=== PATIENT | female | born 1975 | race Caucasian/White ===

== ENCOUNTER 2017-09-01 13:34 | Emergency (ER) | payer OTHER ==
[2017-09-01 13:38] VITALS: PULSE 84; TEMP 97.8
--- NOTE | 2017-09-01 15:18 | ED ---
General Adult HPI - General Chief complaint: ENT Stated complaint: Sore Throat Time Seen by Provider: 09/01/17 14:37 Source: patient, RN notes reviewed Mode of arrival: ambulatory Limitations: no limitations - History of Present Illness Initial comments: 41-year-old female presents to the emergency department for a chief complaint of throat pain x 1 day. Patient states she has had congestion for 2-3 weeks and now has a sore throat which started today. Patient denies any fevers or chills at home. Patient states it feels like there is a lump in her throat that is causing pain. Patient denies any difficulty breathing or swallowing. Patient denies any cough or ear pain or pressure. Patient denies any other complaints at this time including shortness of breath, chest pain, abdominal pain, nausea or vomiting. - Related Data Previous Rx's Medication Instructions Recorded Azithromycin [Zithromax Z-pack] 250 mg PO DIRECTED #6 tab 09/01/17 Allergies Allergy/AdvReac Type Severity Reaction Status Date / Time Penicillins Allergy Unknown Verified 09/01/17 13:38 Review of Systems ROS Statement: Those systems with pertinent positive or pertinent negative responses have been documented in the HPI. ROS Other: All systems not noted in ROS Statement are negative. Past Medical History Past Medical History: Thyroid Disorder History of Any Multi-Drug Resistant Organisms: None Reported Past Surgical History: Section Past Psychological History: No Psychological Hx Reported Smoking Status: Never smoker Past Alcohol Use History: None Reported Past Drug Use History: None Reported General Exam Limitations: no limitations General appearance: alert, in no apparent distress Head exam: Present: atraumatic, normocephalic, normal inspection Eye exam: Present: normal appearance, PERRL, EOMI. Absent: scleral icterus, conjunctival injection, periorbital swelling ENT exam: Present: normal exam, normal oropharynx (No erythema noted of the throat. No tonsillar exudates. Uvula is bifurcated.), mucous membranes moist, TM's normal bilaterally Neck exam: Present: normal inspection, full ROM. Absent: tenderness, meningismus, lymphadenopathy (No lymphadenopathy palpated.) Respiratory exam: Present: normal lung sounds bilaterally. Absent: respiratory distress, wheezes, rales, rhonchi, stridor Cardiovascular Exam: Present: regular rate, normal rhythm, normal heart sounds. Absent: systolic murmur, diastolic murmur, rubs, gallop, clicks Course Vital Signs 09/01/17 13:36 Temperature 97.8 F Pulse Rate 84 Respiratory 20 Rate Blood Pressure 179/100 O2 Sat by Pulse 100 Oximetry Medical Decision Making - Medical Decision Making 41-year-old female presents to the emergency department for a chief complaint of sore throat times one day. Patient states she has had congestion for 2-3 weeks and now her throat is sore. Patient states she feels like she has a lump in her throat but denies any difficulty swallowing or breathing. Patient denies any fevers or chills at home. Patient denies any teeth pain. On exam tympanic membranes look within normal limits and oropharynx was nonerythematous with no tonsillar exudates. Vitals are within normal limits within the emergency department and patient is afebrile. Patient will be given a prescription of azithromycin to treat the congestion as she is ALLERGIC to penicillins. Discussed with patient returning to the emergency department if she starts to have any difficulty swallowing or breathing as we can do a CAT scan if needed. At this time patient agrees that a CAT scan is not needed and she would like to monitor with antibiotics. She agrees to come back if she starts to have any worsening symptoms in her throat. She will follow up with primary care in 1-2 days. She will return to the emergency Department if she has any worsening symptoms or difficulty swallowing. Patient is to follow up with primary care for blood pressure management as well. - Lab Data Lab Results 09/01/17 Range/Units 13:59 Group A Strep Rapid Negative (Negative) Disposition Clinical Impression: Sinusitis, Pharyngitis Disposition: HOME SELF-CARE Condition: Good Instructions: Pharyngitis (ED), Sinusitis (ED) Additional Instructions: Please return to the emergency department if you had worsening symptoms, high fevers, or difficulty breathing or swallowing. Otherwise follow-up with primary care in 1-2 days. Take azithromycin as directed and [id number] cold medicines or motrin/tylenol for symptom relief. Prescriptions: Azithromycin [Zithromax Z-pack] 250 mg PO DIRECTED #6 tab Is patient prescribed a controlled substance at d/c from ED?: No Referrals: None,Stated [Primary Care Provider] - 1-2 days Time of Disposition: 15:09
[2017-09-01 15:32] VITALS: BP 185/90; RESP 18
== END 2017-09-01 15:31 | disposition home or self-care (01) ==
LOC: EC 13:34
DX: J32.9 Chronic sinusitis, unspecified (principal); J02.9 Acute pharyngitis, unspecified; Z88.0 Allergy status to penicillin
CPT/HCPCS: 87081; 87430; 99283

== ENCOUNTER 2017-10-30 21:02 | Emergency (ER) | payer OTHER ==
[2017-10-30] MEDS ORDERED: IPRATROPIUM-ALBUTEROL 3 ML NEB INHALATION STA (21:33)
--- NOTE | 2017-10-30 21:36 | ED ---
General Adult HPI - General Chief complaint: ENT Stated complaint: Itchy Eyes, Shortness of Breath Time Seen by Provider: 10/30/17 21:10 Source: patient, RN notes reviewed Mode of arrival: ambulatory Limitations: no limitations - History of Present Illness Initial comments: This is a 42-year-old female presents emergency Department complaining of itchy eyes. Patient states earlier in the week she had little bit of a fever and now she has just a GIs and a dry cough. Patient states she doesn't really have any shortness of breath but every time she takes a deep breath she seems to cough. Patient denies any history of difficulty breathing or asthma. Patient denies any smoking history or living with a smoker. Patient denies any sore throat currently but she states earlier in the week she had a sore throat. Patient denies any ear pain or any facial pain. Patient denies any nasal drainage. Patient denies any rashes or lesions. She denies any chest pain or abdominal pain. - Related Data Previous Rx's Medication Instructions Recorded Azithromycin [Zithromax Z-pack] 250 mg PO DIRECTED #6 tab 09/01/17 Albuterol Inhaler [Ventolin Hfa 1 - 2 puff INHALATION Q6HR PRN #2 10/30/17 Inhaler] puff Allergies Allergy/AdvReac Type Severity Reaction Status Date / Time Penicillins Allergy Unknown Verified 10/30/17 21:16 Review of Systems ROS Statement: Those systems with pertinent positive or pertinent negative responses have been documented in the HPI. ROS Other: All systems not noted in ROS Statement are negative. Past Medical History Past Medical History: Thyroid Disorder History of Any Multi-Drug Resistant Organisms: None Reported Past Surgical History: Section Past Psychological History: No Psychological Hx Reported Smoking Status: Never smoker Past Alcohol Use History: None Reported Past Drug Use History: None Reported General Exam - General Exam Comments Initial Comments: GENERAL: Patient is well-developed and well-nourished. Patient is nontoxic and well- hydrated and is in mild distress. ENT: Neck is soft and supple. No significant lymphadenopathy is noted. Oropharynx is clear. Moist mucous membranes. Neck has full range of motion without eliciting any pain. There is no thyroid enlargement and no masses were felt. EYES: The sclera were anicteric and conjunctiva is injected on the left and it looks like pink. Extraocular movements were intact and pupils were equal round and reactive to light. Eyelids were unremarkable. PULMONARY: Unlabored respirations. Good breath sounds bilaterally. No audible rales rhonchi or wheezing was noted. CARDIOVASCULAR: There is a regular rate and rhythm without any murmurs gallops or rubs. ABDOMEN: Soft and nontender with normal bowel sounds. No palpable organomegaly was noted. There is no palpable pulsatile mass. SKIN: Skin is clear with no lesions or rashes and otherwise unremarkable. NEUROLOGIC: Patient is alert and oriented x3. Cranial nerves II through XII are grossly intact. Motor and sensory are also intact. Normal speech, volume and content. Symmetrical smile. MUSCULOSKELETAL: Normal extremities with adequate strength and full range of motion. No lower extremity swelling or edema. No calf tenderness. LYMPHATICS: No significant lymphadenopathy is noted PSYCHIATRIC: Normal psychiatric evaluation. Limitations: no limitations Course Vital Signs 10/30/17 10/30/17 10/30/17 21:12 21:48 21:54 Temperature 98.8 F Pulse Rate 70 76 78 Respiratory 20 Rate Blood Pressure 157/86 O2 Sat by Pulse 99 Oximetry 10/30/17 22:26 Temperature 98.6 F Pulse Rate 73 Respiratory 18 Rate Blood Pressure 162/90 O2 Sat by Pulse 96 Oximetry Medical Decision Making - Medical Decision Making Chest x-ray shows no acute abnormality. I will begin to reevaluate the patient patient stated the breathing treatment seemed to help her and she is no longer coughing is much she was. I listened to her lungs was no wheezing at all. Disposition Clinical Impression: Upper respiratory infection, Conjunctivitis Disposition: HOME SELF-CARE Instructions: Upper Respiratory Infection (ED), Conjunctivitis (ED) Additional Instructions: Patient should use the tobramycin eyedrops 4 times a day. Prescriptions: Albuterol Inhaler [Ventolin Hfa Inhaler] 1 - 2 puff INHALATION Q6HR PRN #2 puff PRN Reason: Difficulty breathing Is patient prescribed a controlled substance at d/c from ED?: No Referrals: Taran Lakhani DO [Primary Care Provider] - 1-2 days Time of Disposition: 22:07
--- NOTE | 2017-10-30 21:51 | XR ---
EXAMINATION TYPE: XR chest 2V DATE OF EXAM: 10/30/2017 COMPARISON: 11/18/2011 HISTORY: Difficulty breathing TECHNIQUE: Frontal and lateral views of the chest are obtained. FINDINGS: Heart and mediastinum are normal. Lungs are clear. Diaphragm is normal. Bony thorax appear s normal. IMPRESSION: Normal chest. No change.
[2017-10-30] MEDS ORDERED: TOBRAMYCIN 0.3% OPHTH DROPS 5 ML BTL BOTH EYES STA (22:08)
[2017-10-30 22:26] VITALS: PULSE 73; RESP 18; TEMP 98.6
[2017-10-30 22:30] VITALS: BP 162/90
== END 2017-10-30 22:37 | disposition home or self-care (01) ==
LOC: EC 21:02
DX: J06.9 Acute upper respiratory infection, unspecified (principal); H10.9 Unspecified conjunctivitis; Z88.0 Allergy status to penicillin
CPT/HCPCS: 71046; 94640; 99285

== ENCOUNTER → 2019-05-11 | Outpatient (CLI) | payer OTHER ==
--- NOTE | 2019-05-11 08:46 | MR ---
EXAMINATION TYPE: MR knee LT wo con DATE OF EXAM: 05/11/2019 COMPARISON: NONE HISTORY: Pain left knee, patellofemoral disorders, chondromalacia patella, history of large body habi tus, and meniscal derangement. TECHNIQUE: Multiplanar, multisequence images of the knee is performed without IV contrast. FINDINGS: MEDIAL MENISCUS: Medial extrusion medial meniscus noted on coronal images. Anterior horn is intact wi thout tear. Posterior horn shows triangular shaped increased signal does not extend to articular surf denis. LATERAL MENISCUS: Anterior and posterior horns are intact without tear. CRUCIATE LIGAMENTS: The anterior and posterior cruciate ligaments are intact and unremarkable. COLLATERAL LIGAMENTS: The medial collateral ligament and lateral collateral ligament complex are inta ct. There is slight medial bowing from medial extruded meniscus with mild to moderate surrounding flu id image 20 for reference. EXTENSOR MECHANISM: Visualized quadriceps and patellar tendons are intact. Hoffa's fat pad maintained . EFFUSION: There is moderate to borderline large size suprapatellar joint effusion. POPLITEAL CYST: No popliteal/morales cyst. TRICOMPARTMENT SPACES: Mild to moderate tricompartment joint space loss without significant spurring. CARTILAGE: Chondromalacia patella is present with thinning of articular cartilage along the posterior inferior aspect patellar pole. No full-thickness cartilaginous loss is seen. Some thinning of articu lar cartilage and medial tibial femoral compartment is also present. There is lateral tilting or subl uxation of patella seen best on axial images. No definitive underlying trochlear dysplasia. BONE MARROW SIGNAL: No focal abnormal marrow signal is appreciated. OTHER: No additional significant abnormality is appreciated. IMPRESSION: 1. Mild to moderate tricompartment degenerative changes are somewhat pronounced for patient's chronol ogic age as detailed above. Lateral subluxation or tilting of patella noted. 2. Moderate to large-sized suprapatellar joint effusion. 3. At least intrasubstance tear posterior horn with medial extrusion medial meniscus. 4. [id number] MCL sprain injury partially related to medial extrusion of medial meniscus.
== END | disposition home or self-care (01) ==
LOC: RADMRIMAIN 07:42
PROVIDERS: ATTEND Physician Assistant
DX: S83.242A Other tear of medial meniscus, current injury, left knee, initial encounter (principal); M17.12 Unilateral primary osteoarthritis, left knee; E03.9 Hypothyroidism, unspecified

== ENCOUNTER 2019-09-12 16:19 | Emergency (ER) | payer OTHER ==
[2019-09-12 16:35] VITALS: TEMP 98.2
[2019-09-12 17:30] LABS: Appearance,Urine Cloudy (Clear); Bacteria,Urine Rare /hpf; Bilirubin,Urine Negative (Negative); Blood,Urine Large (Negative); Budding Yeast,Urine Occasional /hpf; Calcium Oxalate Crystals,Urine Moderate /hpf; Color,Urine Yellow; Glucose,Urine (UA) Negative (Negative); Hyaline Casts,Urine 10 /lpf (0-2); Ketones,Urine Negative (Negative); Leukocyte Esterase,Urine Trace (Negative); Mucus,Urine Few /hpf; Nitrite,Urine Negative (Negative); PH, Urine 5.5 (5.0-8.0); Protein,Urine 2+ (Negative); RBC,Urine >182 /hpf (0-5); Specific Gravity,Urine 1.025 (1.001-1.035); Squamous Epithelial Cell,Urine 12 /hpf (0-4); Urobilinogen,Urine <2.0 mg/dL (<2.0); WBC,Urine 9 /hpf (0-5)
--- NOTE | 2019-09-12 17:34 | ED ---
Female Urogenital HPI - General Chief complaint: Urogenital Stated complaint: poss kidney stones Time Seen by Provider: 09/12/19 16:43 Source: patient Mode of arrival: ambulatory Limitations: no limitations - History of Present Illness Initial comments: 43-year-old female presenting for right flank pain and hematuria. Patient states she has frequent kidney stones, symptoms identical to previous stones began at 1PM. Patient states that she had blood in urine and nausea. Patient lamar abdominal pain. Fevers, dysuria urgency frequency. Upon history taking patient states she had urinated in the ER to provide urine sample for the nurse and states she no longer symptoms. She states she would not have presented if the symptoms had gone away this quickly. She states she does not want much of a work up and would like to go home. Patient appears well no distress. Remaining ROS (-), Patient denies any recent shortness of breath, chest pain, numbness or tingling, dysuria or hematuria, constipation or diarrhea, headaches or visual changes, or any other complaints. - Related Data Previous Rx's Medication Instructions Recorded Azithromycin [Zithromax Z-pack] 250 mg PO DIRECTED #6 tab 09/01/17 Albuterol Inhaler (Mhu) [Ventolin 1 - 2 puff INHALATION Q6HR PRN #2 10/30/17 Hfa Inhaler (Mhu)] puff Allergies Allergy/AdvReac Type Severity Reaction Status Date / Time Penicillins Allergy Unknown Verified 09/12/19 16:35 Review of Systems ROS Statement: Those systems with pertinent positive or pertinent negative responses have been documented in the HPI. ROS Other: All systems not noted in ROS Statement are negative. Past Medical History Past Medical History: Thyroid Disorder History of Any Multi-Drug Resistant Organisms: None Reported Past Surgical History: Section Past Psychological History: No Psychological Hx Reported Smoking Status: Never smoker Past Alcohol Use History: None Reported Past Drug Use History: None Reported General Exam - General Exam Comments Initial Comments: General: The patient is awake and alert, in no distress, and does not appear acutely ill. Eye: pupils are equal, round and reactive to light, extra-ocular movements are intact. No nystagmus. There is normal conjunctiva bilaterally. No signs of icterus. Cardiovascular: There is a regular rate and rhythm. No murmur, rub or gallop is appreciated. Respiratory: Lungs are clear to auscultation, respirations are non-labored, breath sounds are equal. No wheezes, stridor, rales, or rhonchi. Gastrointestinal: Soft, non-distended, non-tender abdomen without masses or organomegaly noted. There is no rebound or guarding present. Musculoskeletal: Normal ROM, no tenderness. Strength 5/5. Sensation intact. radial pulses equal bilaterally 2+. Neurological: A&O x 3. CN II-XII intact grossly, There are no obvious motor or sensory deficits. Coordination appears grossly intact. Speech is normal. Skin: Skin is warm and dry and no rashes or lesions are noted. Psychiatric: Cooperative, appropriate mood & affect, normal judgment. Limitations: no limitations Course Vital Signs 09/12/19 09/12/19 16:33 17:41 Temperature 98.2 F Pulse Rate 64 74 Respiratory 18 16 Rate Blood Pressure 155/94 155/102 O2 Sat by Pulse 97 96 Oximetry Medical Decision Making - Medical Decision Making Currently asymptomatic 43-year-old female. Presenting for possible stone. Patient agreed urinalysis which reveals no significant WBC/Bacteria. No Fevers No Chills No Current Pain. Patient will be discharged with PCP f/u. Patient is to return for pain, fevers, chills. Patient discharged appearing well. Pt refused labs, or CT aware of risk of /disability. - Lab Data Lab Results 09/12/19 Range/Units 17:17 Urine Color Yellow Urine Appearance Cloudy H (Clear) Urine pH 5.5 (5.0-8.0) Ur Specific [place] 1.025 (1.001-1.035) Urine Protein 2+ H (Negative) Urine Glucose (UA) Negative (Negative) Urine Ketones Negative (Negative) Urine Blood Large H (Negative) Urine Nitrite Negative (Negative) Urine Bilirubin Negative (Negative) Urine Urobilinogen <2.0 (<2.0) mg/dL Ur Leukocyte Esterase Trace H (Negative) Urine RBC >182 H (0-5) /hpf Urine WBC 9 H (0-5) /hpf Ur Squamous Epith Cells 12 H (0-4) /hpf Calcium Oxalate Crystal Moderate H (None) /hpf Urine Bacteria Rare H (None) /hpf Hyaline Casts 10 H (0-2) /lpf Urine Mucus Few H (None) /hpf Urine Yeast (Budding) Occasional H (None) /hpf Disposition Clinical Impression: Hematuria, History of kidney stones Disposition: HOME SELF-CARE Condition: Good Instructions (If sedation given, give patient instructions): Kidney Stones (ED) Additional Instructions: Please use medication as discussed. Please follow-up with family doctor in the next 2 days. Please return to emergency room if the symptoms increase or worsen or for any other concerns-return of pain, fevers. Is patient prescribed a controlled substance at d/c from ED?: No Referrals: Yael Cardenas MD [Primary Care Provider] - 1-2 days Time of Disposition: 17:33
[2019-09-12 17:42] VITALS: BP 155/102; PULSE 74; RESP 16
== END 2019-09-12 17:56 | disposition home or self-care (01) ==
LOC: EC 16:19
DX: R31.9 Hematuria, unspecified (principal); Z87.442 Personal history of urinary calculi; Z88.0 Allergy status to penicillin
CPT/HCPCS: 81001; 99284

== ENCOUNTER → 2020-06-23 | Outpatient (CLI) | payer OTHER ==
--- NOTE | 2020-06-23 15:01 | XR ---
EXAMINATION TYPE: XR knee complete LT DATE OF EXAM: 06/23/2020 CLINICAL HISTORY: pain TECHNIQUE: Three views of the left knee are obtained. COMPARISON: None. FINDINGS: There is no acute fracture/dislocation. The tri-compartment joint spaces appear mildly na rrowed The overlying soft tissue appears unremarkable. IMPRESSION: There is no acute fracture or dislocation ICD 10 NO FRACTURE, INITIAL EVALUATION
== END | disposition home or self-care (01) ==
LOC: RADXRMAIN 14:31
PROVIDERS: ATTEND Internal Medicine
DX: S83.92XA Sprain of unspecified site of left knee, initial encounter (principal)

== ENCOUNTER → 2020-07-12 | Outpatient (CLI) | payer OTHER ==
--- NOTE | 2020-07-12 12:56 | MR ---
EXAMINATION TYPE: MR knee LT wo con DATE OF EXAM: 07/12/2020 COMPARISON: MRI left knee May 11, 2019 HISTORY: Lt knee pain, patellofemoral disorder, chondromalacia patella, subluxation left patella, MCL sprain injury, derangements of patella. TECHNIQUE: Multiplanar, multisequence imaging of the left knee is performed without IV contrast. FINDINGS: Exam suboptimal secondary to patient's large body habitus, there is artifact in heterogenei ty of fat saturation. MEDIAL MENISCUS: Medial extrusion medial meniscus redemonstrated. Oblique and triangular shape increa sed signal posterior horn extends to inferior articular surface. The anterior horn intact. Findings s imilar to prior. LATERAL MENISCUS: Anterior and posterior horns are intact without tear. CRUCIATE LIGAMENTS: The posterior cruciate ligament is intact and unremarkable. Anterior cruciate lig ament shows increased signal and thickening more prominent versus prior. COLLATERAL LIGAMENTS: The medial collateral ligament and lateral collateral ligament complex are inta ct . EXTENSOR MECHANISM: Visualized quadriceps and patellar tendons are intact. EFFUSION: Small to tiny suprapatellar joint effusion less prominent first prior. POPLITEAL CYST: No popliteal/morales cyst. TRICOMPARTMENT SPACES: Mild to moderate tricompartment joint space loss greatest over patellofemoral compartment. Mild tricompartment spurring. Lateral positioning or tilting of the patella remains pres ent. No significant change from prior. Underlying trochlear dysplasia. CARTILAGE: Persistent chondromalacia patella with thinning of articular cartilage inferior portion of the posterior patellar pole. Thinning of articular cartilage medial tibiofemoral compartment. BONE MARROW SIGNAL: No focal abnormal marrow signal is appreciated. OTHER: No additional significant abnormality is appreciated. IMPRESSION: 1. Mild to moderate tricompartment degenerative changes redemonstrated as detailed above greatest med ial tibiofemoral and patellofemoral compartments. Findings somewhat pronounced for patient's age. Inc reased degenerative change medial tibiofemoral compartment noted from prior MRI. Stable lateral posit ioning or subluxation of the patella. 2. Redemonstration of full thickness tear posterior horn medial meniscus. Medial extrusion medial men iscus causes mild MCL sprain injury. No significant change from prior. 3. Small suprapatellar joint effusion diminished in size from prior.
== END | disposition home or self-care (01) ==
LOC: RADMRIMAIN 11:37
PROVIDERS: ATTEND Orthopaedic Surgery Sports Medicine
DX: M17.12 Unilateral primary osteoarthritis, left knee (principal); M22.2X2 Patellofemoral disorders, left knee; M22.42 Chondromalacia patellae, left knee; M22.3X2 Other derangements of patella, left knee; S83.002D Unspecified subluxation of left patella, subsequent encounter; E03.9 Hypothyroidism, unspecified; S83.412D Sprain of medial collateral ligament of left knee, subsequent encounter

== ENCOUNTER 2021-04-11 12:38 | Inpatient (IN) | payer OTHER ==
[2021-04-11] MEDS ORDERED: ACETAMINOPHEN TAB 500 MG TAB PO PRN (13:10)
[2021-04-11] MEDS ORDERED: ACETAMINOPHEN TAB 500 MG TAB PO STA (13:10)
[2021-04-11] MEDS ORDERED: DEXAMETHASONE SOD PHOSPHATE 10 MG/ML 1 ML VIAL IVP STA (13:10)
[2021-04-11] MEDS ORDERED: ALBUTEROL HFA INHALER INHALATION PRN (13:10)
[2021-04-11 13:25] LABS: Basophils % (A) 0 %; Eosinophils % (A) 1 %; HCT 38.2 % (34.0-46.0); HGB 12.3 gm/dL (11.4-16.0); Hypochromasia Slight; Lymphocytes # (A) 0.8 k/uL (1.0-4.8); Lymphocytes % (A) 15 %; MCH 29.4 pg (25.0-35.0); MCHC 32.3 g/dL (31.0-37.0); Mean Platelet Volume 8.5; Monocytes # (A) 0.2 k/uL (0-1.0); Monocytes % (A) 4 %; Neutrophils # (A) 4.4 k/uL (1.3-7.7); Neutrophils % (A) 80 %; Platelet Count 155 k/uL (150-450); RDW 14.1 % (11.5-15.5); WBC 5.6 k/uL (3.8-10.6)
[2021-04-11 13:35] LABS: Partial Thromboplastin Time 23.3 sec (22.0-30.0); Prothrombin Time 10.3 sec (9.0-12.0)
[2021-04-11 13:36] LABS: Albumin 3.7 g/dL (3.5-5.0); Calcium 8.5 mg/dL (8.4-10.2); Magnesium 1.6 mg/dL (1.6-2.3); Potassium 4.3 mmol/L (3.5-5.1); Total Bilirubin 0.8 mg/dL (0.2-1.3); Total Protein 7.5 g/dL (6.3-8.2)
--- NOTE | 2021-04-11 13:38 | ED ---
General Adult HPI - General Chief complaint: Shortness of Breath Stated complaint: Covid+/SOB Time Seen by Provider: 04/11/21 12:43 Source: patient Mode of arrival: EMS Limitations: no limitations - History of Present Illness Initial comments: 45-year-old female with a past medical history of thyroid disorder, obesity presents to the emergency room for a chief complaint of shortness of breath. Patient developed symptoms of Brooks virus about a week ago and tested +5 days ago. Patient states she is getting more short of breath. She called the [facility] today and they found her to be saturating at 60% on room air. Therefore she was brought to the emergency room. Patient has had fevers on and off. Patient was vaccinated for COVID-19 in August.Patient has no other complaints at this time including chest pain, abdominal pain, nausea or vomiting, headache, or visual changes. - Related Data Previous Rx's Medication Instructions Recorded Azithromycin [Zithromax Z-pack (6 250 mg PO DIRECTED #6 tab 09/01/17 tabs)] Albuterol Inhaler (Mhu) [Ventolin 1 - 2 puff INHALATION Q6HR PRN #2 10/30/17 Hfa Inhaler (Mhu)] puff Allergies Allergy/AdvReac Type Severity Reaction Status Date / Time Penicillins Allergy Unknown Verified 04/11/21 13:05 Review of Systems ROS Statement: Those systems with pertinent positive or pertinent negative responses have been documented in the HPI. ROS Other: All systems not noted in ROS Statement are negative. Past Medical History Past Medical History: Thyroid Disorder Additional Past Medical History / Comment(s): obesity History of Any Multi-Drug Resistant Organisms: None Reported Past Surgical History: Section, Cholecystectomy Past Psychological History: No Psychological Hx Reported Smoking Status: Never smoker Past Alcohol Use History: None Reported Past Drug Use History: None Reported General Exam Limitations: no limitations General appearance: alert Head exam: Present: atraumatic Eye exam: Present: normal appearance, PERRL, EOMI. Absent: scleral icterus, conjunctival injection ENT exam: Present: normal exam, mucous membranes moist Neck exam: Present: normal inspection, full ROM. Absent: tenderness, meningismus Respiratory exam: Present: normal lung sounds bilaterally. Absent: respiratory distress, wheezes Cardiovascular Exam: Present: regular rate, normal rhythm, normal heart sounds GI/Abdominal exam: Present: soft, normal bowel sounds. Absent: distended, tenderness Course Vital Signs 04/11/21 04/11/21 04/11/21 12:59 13:00 13:05 Temperature 101.1 F H Pulse Rate 106 H Respiratory 22 Rate Blood Pressure 153/92 O2 Sat by Pulse 94 L 80 L 94 L Oximetry EKG Findings - EKG Comments: EKG Findings:: Sinus tachycardia, ventricular rate 106, GA interval 166, QTC 435 Medical Decision Making - Medical Decision Making Patient 68% upon EMS arrival. We did reevaluate her on room air and she was 80%. Therefore started on 4 L. EKG, chest x-ray, COVID-19 labs and markers obtained and vitamins. Patient will be admitted for oxygenation as well as pulmonology consultation. - Lab Data Result diagrams: 04/11/21 13:17 Lab Results 04/11/21 Range/Units 13:17 WBC 5.6 (3.8-10.6) k/uL RBC 4.20 (3.80-5.40) m/uL Hgb 12.3 (11.4-16.0) gm/dL Hct 38.2 (34.0-46.0) % MCV 91.0 (80.0-100.0) fL MCH 29.4 (25.0-35.0) pg MCHC 32.3 (31.0-37.0) g/dL RDW 14.1 (11.5-15.5) % Plt Count 155 (150-450) k/uL MPV 8.5 Neutrophils % 80 % Lymphocytes % 15 % Monocytes % 4 % Eosinophils % 1 % Basophils % 0 % Neutrophils # 4.4 (1.3-7.7) k/uL Lymphocytes # 0.8 L (1.0-4.8) k/uL Monocytes # 0.2 (0-1.0) k/uL Eosinophils # 0.0 (0-0.7) k/uL Basophils # 0.0 (0-0.2) k/uL Hypochromasia Slight Disposition Clinical Impression: COVID-19, Acute respiratory failure with hypoxia Disposition: ADMITTED IP TO THIS HOSP Is patient prescribed a controlled substance at d/c from ED?: No Referrals: Yael Cardenas MD [Primary Care Provider] - 1-2 days Time of Disposition: 13:38
--- NOTE | 2021-04-11 13:46 | XR ---
EXAMINATION TYPE: XR chest 1V portable DATE OF EXAM: 04/11/2021 COMPARISON: Chest x-ray October 30, 2017 HISTORY: Cough and congestion. TECHNIQUE: Single AP portable frontal upright view of the chest is obtained. FINDINGS: There are new bilateral multifocal and confluent opacities The cardiac silhouette size is mildly enlarged. The osseous structures are intact. IMPRESSION: New bilateral multifocal and confluent opacities consistent with covid-19 infection.
[2021-04-11] MEDS ORDERED: IBUPROFEN 400 MG TAB PO PRN (15:21)
[2021-04-11] MEDS ORDERED: NALOXONE 0.4 MG/ML 1 ML VIAL IV PRN (15:21)
[2021-04-11] MEDS: ASCORBIC ACID 500 MG TAB PO SCH (15:36)
[2021-04-11] MEDS: ZINC SULFATE 220 MG CAP PO SCH (15:41)
[2021-04-11] MEDS: CHOLECALCIFEROL 125 MCG (5000 IU) TABLET PO SCH (15:43)
--- NOTE | 2021-04-11 17:51 | HP ---
HISTORY AND PHYSICAL DATE OF SERVICE: 04/11/2021 CHIEF COMPLAINTS: Shortness of breath. HISTORY OF PRESENT ILLNESS: This 45-year-old woman with a past medical history of hypothyroidism, obesity, section and cholecystomy being followed by Dr. Cardenas in the outpatient is complaining of shortness and cough for the last five days. The patient came to [facility] and the patient is found to have bilateral acute COVID-19 pneumonia. The patient did take two doses of COVID-19 vaccine. There is no history of contact with COVID-19. PAST MEDICAL HISTORY: Hypothyroid,obesity, section, cholecystectomy. MEDICATIONS: Home medications are levothyroxine 150 mcg p.o. daily. ALLERGIES: PENICILLIN. FAMILY HISTORY: No history of heart disease or strokes in the family. SOCIAL HISTORY: No smoking, no alcohol. REVIEW OF SYSTEMS: ENT No history of diminished hearing or vision. CARDIOVASCULAR No angina or palpitations. RESPIRATORY No cough, no hemoptysis. GI No nausea. No dysuria or hematuria. NERVOUS No numbness or weakness. ALLERGY/IMMUNOLOGY No asthma or hayfever. MUSCULOSKELETAL As mentioned earlier. HEMATOLOGY/ONCOLOGY Negative. ENDOCRINE No history of diabetes. Has hypothyroidism. CONSTITUTIONAL As mentioned earlier. DERMATOLOGY Negative. RHEUMATOLOGY Negative, PSYCHIATRY As mentioned earlier. PHYSICAL EXAMINATION: The patient is alert and oriented x3. Pulse is 99, blood pressure 150/92, respiration 24, temperature normal, pulse ox 93% on 4 L. HEENT: Conjunctivae normal. Oral mucosa moist. NECK: No jugular venous distention. No lymph node enlargement. CARDIOVASCULAR: S1, S2, muffled. No S3, no S4, RESPIRATORY: Diminished breath sounds at the bases. A few scattered rhonchi. ABDOMEN: Soft, nontender. LEGS: No edema, no swelling. NERVOUS SYSTEM: Higher functions mentioned earlier. Moves all four limbs. No focal motor or sensory deficits. LYMPHATICS: No lymph node in neck or axilla. SKIN: No rash. JOINTS: No active deforming arthropathy. LABS: CBC within normal limits except lymphopenia. Sodium 132. Other labs are noted. ASSESSMENT: 1. Acute COVID-19 infection with acute COVID-19 bilateral interstitial pneumonia with acute hypoxic respiratory failure. 2. Lymphopenia. 3. Hyponatremia. 4. Elevated random glucose and possibly diabetes type 2. 5. Increased AST, ALT, pulse secondary to COVID-19. 6. Elevated LDH and ( ). 7. Elevated inflammatory markers of COVID-19. 8. Hypothyroid. 9. Obesity. 10.History of section. 11.History of cholecystectomy. 12.FULL CODE. RECOMMENDATION: In this 45-year-old woman who presented with multiple complex medical issues, we will monitor the patient closely, continue the current management and symptomatic treatment. We will initiate Lovenox and dexamethasone. The patient might be a candidate for Remdesivir. We will obtain Infectious Disease and Pulmonary consultations. Prognosis guarded because of multiple complex medical issues. Further recommendations to follow. MMODL / IJN: [id number] /
[2021-04-11 18:03] LABS: Glucose,Whole Blood 354 mg/dL (75-99)
[2021-04-11] MEDS: INSULIN ASPART (NovoLOG) 100 UNIT/ML VIAL SQ SCH ×2 (18:05→20:52)
--- NOTE | 2021-04-11 18:18 | P.CNPUL ---
History of Present Illness Consult date: 04/11/21 Requesting physician: Richa Valerio Reason for consult: dyspnea, abnormal CXR/CT Chief complaint: Shortness of breath, cough congestion History of present illness: This is a very pleasant 45-year-old female patient who follows with Dr. Cardeans as her primary care provider. His a history of obesity, hypothyroidism, hypertension. Approximately 8 days ago she developed symptoms of shortness of breath, cough, congestion, loss of taste and smell. She tested positive for COVID-19 on 04/07/2021. She was vaccinated with Materna 2 back in August 2020. She had worsening shortness of breath and called EMS today and they found her O2 saturation at 60% on room air. Rectal maintaining O2 saturation in the low 90s on 4 L/m per nasal cannula. His x-ray is revealing bilateral multifocal and confluent opacities consistent with COVID-19 pneumonia. He is seen today in consultation in the emergency room. She is currently sitting up on the stretcher. Awake and alert in no acute distress. She has a dry nonproductive cough. Dyspneic with conversation. I count 5.6. Hemoglobin 12.3. Lymphocytes 0.8. Sodium 135. Potassium 4.3. Bicarb 97. Creatinine 0.90. Glucose 241. AST 100. ALT 68. LDH 870. C-reactive protein 25.0. She has been initiated on Decadron, Lovenox, vitamin supplements. Normal saline at 75 ML's per hour. Review of Systems REVIEW OF SYSTEMS: CONSTITUTIONAL: Denies any recent significant weight loss or weight gain. EYES: Denies change in vision. EARS, NOSE, MOUTH, THROAT: Denies headaches, denies sore throat. CARDIOVASCULAR: Denies chest pain, palpitations or syncopal episodes. RESPIRATORY: Positive for shortness of breath, cough, congestion no hemoptysis. GASTROINTESTINAL: Positive for loss of taste. Denies change in appetite, denies abdominal pain GENITOURINARY: Denies hematuria, denies infections. MUSKULOSKELETAL: Denies pain, denies swelling. INTEGUMENTARY: Denies rash, denies eczema. NEUROLOGICAL: Denies recent memory loss, no recent seizure activity. PSYCHIATRIC: Denies anxiety, denies depression. HEMATOLOGIC/LYMPHATIC: Denies anemia, denies enlarged lymph nodes. Past Medical History Past Medical History: Thyroid Disorder Additional Past Medical History / Comment(s): obesity History of Any Multi-Drug Resistant Organisms: None Reported Past Surgical History: Section, Cholecystectomy Past Psychological History: No Psychological Hx Reported Smoking Status: Never smoker Past Alcohol Use History: None Reported Past Drug Use History: None Reported Medications and Allergies Home Medications Medication Instructions Recorded Confirmed Type Levothyroxine Sodium [Synthroid] 150 mcg PO DAILY 04/11/21 04/11/21 History Allergies Allergy/AdvReac Type Severity Reaction Status Date / Time Penicillins Allergy Rash/Hives Verified 04/11/21 14:00 Physical Exam Vitals: Vital Signs Temp Pulse Resp BP Pulse Ox 04/11/21 17:30 95 25 H 136/75 94 L 04/11/21 17:00 92 23 136/45 94 L 04/11/21 16:30 92 20 136/45 94 L 04/11/21 16:00 91 27 H 141/81 94 L 04/11/21 15:30 96 23 117/81 94 L 04/11/21 15:00 94 20 150/87 04/11/21 14:30 99 22 152/86 92 L 04/11/21 14:00 99 25 H 153/92 93 L 04/11/21 13:30 106 H 22 153/92 04/11/21 13:10 100 22 153/92 95 04/11/21 13:05 94 L 04/11/21 13:00 80 L 04/11/21 12:59 101.1 F H 106 H 22 153/92 94 L Intake and Output 04/11/21 04/11/21 04/11/21 06:59 14:59 22:59 Other: Weight 149.685 kg GENERAL EXAM: Alert, pleasant obese 45-year-old female, on 4 L nasal cannula, fairly comfortable in no apparent distress. HEAD: Normocephalic. EYES: Normal reaction of pupils, equal size. NOSE: Clear with pink turbinates. THROAT: No erythema or exudates. NECK: No masses, no JVD. CHEST: No chest wall deformity. LUNGS: Equal air entry with coarse crackles in the bilateral bases. CVS: S1 and S2 normal with no audible murmur, regular rhythm. ABDOMEN: No hepatosplenomegaly, normal bowel sounds, no guarding or rigidity. SPINE: No scoliosis or deformity SKIN: No rashes CENTRAL NERVOUS SYSTEM: No focal deficits, tone is normal in all 4 extremities. EXTREMITIES: There is no peripheral edema. No clubbing, no cyanosis. Peripheral pulses are intact. Results - Laboratory Findings CBC and BMP: 04/11/21 13:17 04/11/21 13:17 PT/INR, D-dimer PT 10.3 sec (9.0-12.0) 04/11/21 13:17 INR 1.0 (<1.2) 04/11/21 13:17 Abnormal lab findings: Abnormal Labs 04/11/21 04/11/21 04/11/21 13:17 13:17 17:59 Lymphocytes # 0.8 L Sodium 135 L Chloride 97 L Glucose 241 H POC Glucose (mg/dL) 354 H AST 100 H ALT 68 H Lactate Dehydrogenase 870 H C-Reactive Protein 25.0 H - Diagnostic Findings Chest x-ray: image reviewed Assessment and Plan Assessment: 1 Acute hypoxemic respiratory failure secondary to COVID-19 pneumonia. The patient was vaccinated 2 with [place] not in August 2020. Outside the window for Remdesivir. 2 Elevated inflammatory markers secondary to above 3 Mild transaminitis secondary to above 4 Obesity with a BMI of 60 kg per metered square 5 Hypothyroidism 6 Hypertension Plan: The patient was seen and evaluated by Dr. Sneed Chest x-ray and labs reviewed Obtain a d-dimer Obtain a pro-calcitonin Continue Lovenox, Decadron, vitamin supplements Titrate the FiO2 as tolerated We will continue to follow and make further recommendations based on her clinical status I, the cosigning physician, performed a history & physical examination of the patient. Lungs sounds with coarse crackles in the bilateral bases. Maintaining O2 saturations in the 90s on 4 L/m per nasal cannula. I discussed the a ssessment and plan of care with my nurse practitioner, Sol Kelly. I attest to the above consultation as dictated by her. Time with Patient: Greater than 30
[2021-04-11] MEDS: SODIUM CHLORIDE 0.9% 1,000 ML IV SCH (19:30)
[2021-04-11 20:46] LABS: Glucose,Whole Blood 429 mg/dL (75-99)
[2021-04-11] MEDS: ENOXAPARIN 40 MG/0.4 ML SYRINGE SQ SCH (20:52)
[2021-04-11] MEDS: ALBUTEROL HFA INHALER INHALATION SCH (20:59)
[2021-04-12] MEDS: SODIUM CHLORIDE 0.9% 1,000 ML IV SCH ×2 (05:23→20:13)
[2021-04-12] MEDS: LEVOTHYROXINE 75 MCG TAB PO SCH (05:32)
[2021-04-12 06:48] LABS: Glucose,Whole Blood 323 mg/dL (75-99)
[2021-04-12] MEDS: DEXAMETHASONE SOD PHOSPHATE 10 MG/ML 1 ML VIAL IVP SCH (08:05)
[2021-04-12] MEDS: ENOXAPARIN 40 MG/0.4 ML SYRINGE SQ SCH (08:05)
[2021-04-12] MEDS: ZINC SULFATE 220 MG CAP PO SCH (08:06)
[2021-04-12] MEDS: INSULIN ASPART (NovoLOG) 100 UNIT/ML VIAL SQ SCH ×4 (08:06→20:33)
[2021-04-12] MEDS: ASCORBIC ACID 500 MG TAB PO SCH (08:06)
[2021-04-12] MEDS ORDERED: INSULIN DETEMIR (LEVEMIR) 100 UNIT/ML SYR SQ STA (09:05)
[2021-04-12] MEDS: ALBUTEROL HFA INHALER INHALATION SCH ×4 (09:32→21:18)
[2021-04-12] MEDS ORDERED: guaiFENesin SYRUP 100MG/5ML 200 MG/10 ML CUP PO PRN (10:35)
[2021-04-12 11:20] LABS: HCT 36.8 % (37.2-46.3); HGB 10.7 g/dL (12.0-15.0); MCH 27.9 pg (27.0-32.0); MCHC 29.1 g/dL (32.0-37.0); MCV 95.8 fL (80.0-97.0); Mean Platelet Volume 11.8 fL (9.5-12.2); Platelet Count 151 X 10*3/uL (140-440); RBC 3.84 X 10*6/uL (4.10-5.20); RDW 14.4 % (11.5-14.5); WBC 7.65 X 10*3/uL (4.50-10.00)
[2021-04-12 11:27] LABS: Glucose,Whole Blood 364 mg/dL (75-99)
[2021-04-12 11:50] LABS: Basophils # (A) 0.03 X 10*3/uL (0.00-0.10); Basophils % (A) 0.4 %; Eosinophils # (A) 0 X 10*3/uL (0.04-0.35); Eosinophils % (A) 0 %; Lymphocytes # (A) 1.06 X 10*3/uL (0.90-5.00); Lymphocytes % (A) 13.9 %; Monocytes # (A) 0.23 X 10*3/uL (0.20-1.00); Neutrophils # (A) 6.24 X 10*3/uL (1.80-7.70); Neutrophils % (A) 81.5 %
[2021-04-12 11:57] LABS: African American GFR (CKD) 86.4 (60.0-200.0); Albumin 3.4 g/dL (3.8-4.9); Albumin/Globulin Ratio 1.09 (1.60-3.17); Anion Gap 14.5 mmol/L (10.00-18.00); BUN/Creat Ratio 14.89 Ratio (12.00-20.00); Blood Urea Nitrogen 13.8 mg/dL (9.0-27.0); Calcium 8.4 mg/dL (8.7-10.3); Carbon Dioxide 22.5 mmol/L (20.0-27.5); Globulin 3.2 g/dL (1.6-3.3); Non-African American GFR(CKD) 74.5 (60.0-200.0); Potassium 4.7 mmol/L (3.5-5.5); Total Bilirubin 0.3 mg/dL (0.30-1.20); Total Protein 6.6 g/dL (6.2-8.2)
--- NOTE | 2021-04-12 14:18 | XR ---
EXAMINATION TYPE: XR chest 1V portable DATE OF EXAM: 04/12/2021 COMPARISON: 04/11/2021 HISTORY: 45 years Female. STUDY INDICATION GIVEN: CoVID pneumonia . TECHNIQUE: AP chest radiograph IMPRESSION: There is a wedge-shaped pleural-based opacity in the lower aspect of the right hemithorax (see annota jaymie image) which could be seen with pulmonary embolism, this was present on prior study, clinical cor relation recommended. The need for a CT PE should be determined on clinical basis. Scattered bilateral patchy airspace and interstitial opacities slightly decreased in the interval. No pneumothorax or large effusion.Normal cardiomediastinal silhouette. No acute osseous abnormality.
[2021-04-12 16:56] LABS: Glucose,Whole Blood 420 mg/dL (75-99)
[2021-04-12] MEDS ORDERED: INSULIN ASPART (NovoLOG) 100 UNIT/ML VIAL SQ ONE (17:10)
--- NOTE | 2021-04-12 18:27 | P.PN ---
Subjective Progress Note Date: 04/12/21 Principal diagnosis: Coronavirus pneumonia. This is a very pleasant 45-year-old female patient who follows with Dr. Cardenas as her primary care provider. His a history of obesity, hypothyroidism, hypertension. Approximately 8 days ago she developed symptoms of shortness of breath, cough, congestion, loss of taste and smell. She tested positive for COVID-19 on 04/07/2021. She was vaccinated with Materna 2 back in August 2020. She had worsening shortness of breath and called EMS today and they found her O2 saturation at 60% on room air. Rectal maintaining O2 saturation in the low 90s on 4 L/m per nasal cannula. His x-ray is revealing bilateral multifocal and confluent opacities consistent with COVID-19 pneumonia. He is seen today in consultation in the emergency room. She is currently sitting up on the stretcher. Awake and alert in no acute distress. She has a dry nonproductive cough. Dyspneic with conversation. I count 5.6. Hemoglobin 12.3. Lymphocytes 0.8. Sodium 135. Potassium 4.3. Bicarb 97. Creatinine 0.90. Glucose 241. AST 100. ALT 68. LDH 870. C-reactive protein 25.0. She has been initiated on Decadron, Lovenox, vitamin supplements. Normal saline at 75 ML's per hour. Progress note dated 04/12/2021. This is a patient who we saw in consultation yesterday. She has a history of obesity, hypothyroidism, hypertension, and was diagnosed recently as having coronavirus associated pneumonia. She did receive the Moderna vaccine back in August 2020. Currently she is on 5 L nasal cannula. Her saturations are 91%. She's afebrile. Laboratory data from today include a white count of 7.65, hemoglobin 10.7, hematocrit 36.8, and platelet count 151,000. Sodium, potassium, chloride, CO2, anion gap, BUN, and creatinine are all essentially normal. Hemoglobin A1c was elevated at 10.6. Her pro-calcitonin level was 0.25. Chest x-ray shows diffuse bilateral infiltrates, and a wedge-shaped deformity in the right lower lobe. Objective - Vital Signs Vital signs: Vital Signs Temp 97.9 F 04/12/21 13:37 Pulse 93 04/12/21 13:37 Resp 18 04/12/21 13:37 BP 161/81 04/12/21 13:37 Pulse Ox 91 L 04/12/21 13:37 Intake & Output 04/11/21 04/12/21 04/12/21 18:59 06:59 18:59 Weight 149.685 kg 149.685 kg Other: # Voids 3 3 - Exam No acute distress, oriented 3. Currently, the patient's on 5 L nasal cannula. Saturations are in the low 90s. HEENT examination is grossly unremarkable. Neck supple. Full range of motion. No adenopathy thyromegaly or neck vein distention. Cardiovascular examination reveals regular rhythm rate. S1-S2 normal. No S3 or S4. No discernible murmur noted. Heart rate 93 bpm. Lungs reveal diffuse bilateral rhonchi. Breath sounds equal. No wheezes. No crackles. Abdomen soft bowel sounds are heard. No masses or tenderness. Extremities are intact. No cyanosis clubbing or edema. Skin is without rash or lesion. Neurologic examination is brief but nonfocal. - Labs CBC & Chem 7: 04/12/21 06:53 04/12/21 06:53 Labs: Abnormal Lab Results - Last 24 Hours (Table) 04/11/21 04/11/21 04/11/21 Range/Units 20:01 20:01 20:44 RBC (4.10-5.20) X 10*6/uL Hgb (12.0-15.0) g/dL Hct (37.2-46.3) % MCHC (32.0-37.0) g/dL Absolute Nucleated RBC (0.00-0.00) X 10*3/uL Immature Gran # (0.00-0.04) X 10*3/uL Eosinophils # (0.04-0.35) X 10*3/uL NRBC/100 WBC Diff (0.0-0.0) /100 WBCS D-Dimer 0.72 H (<0.60) mg/L FEU Glucose (70-110) mg/dL POC Glucose (mg/dL) 429 H (75-99) mg/dL Hemoglobin A1c (4.0-6.0) % Calcium (8.7-10.3) mg/dL AST (13-35) U/L ALT (8-44) U/L Albumin (3.8-4.9) g/dL Albumin/Globulin Ratio (1.60-3.17) g/dL Procalcitonin 0.25 H (0.02-0.09) ng/mL 04/12/21 04/12/21 04/12/21 Range/Units 06:46 06:53 06:53 RBC 3.84 L (4.10-5.20) X 10*6/uL Hgb 10.7 L (12.0-15.0) g/dL Hct 36.8 L (37.2-46.3) % MCHC 29.1 L (32.0-37.0) g/dL Absolute Nucleated RBC 0.02 H (0.00-0.00) X 10*3/uL Immature Gran # 0.09 H (0.00-0.04) X 10*3/uL Eosinophils # 0 L (0.04-0.35) X 10*3/uL NRBC/100 WBC Diff 0.3 H (0.0-0.0) /100 WBCS D-Dimer (<0.60) mg/L FEU Glucose 351 H (70-110) mg/dL POC Glucose (mg/dL) 323 H (75-99) mg/dL Hemoglobin A1c (4.0-6.0) % Calcium 8.4 L (8.7-10.3) mg/dL AST 87 H (13-35) U/L ALT 61 H (8-44) U/L Albumin 3.4 L (3.8-4.9) g/dL Albumin/Globulin Ratio 1.09 L (1.60-3.17) g/dL Procalcitonin (0.02-0.09) ng/mL 04/12/21 04/12/21 04/12/21 Range/Units 06:53 11:19 16:54 RBC (4.10-5.20) X 10*6/uL Hgb (12.0-15.0) g/dL Hct (37.2-46.3) % MCHC (32.0-37.0) g/dL Absolute Nucleated RBC (0.00-0.00) X 10*3/uL Immature Gran # (0.00-0.04) X 10*3/uL Eosinophils # (0.04-0.35) X 10*3/uL NRBC/100 WBC Diff (0.0-0.0) /100 WBCS D-Dimer (<0.60) mg/L FEU Glucose (70-110) mg/dL POC Glucose (mg/dL) 364 H 420 H (75-99) mg/dL Hemoglobin A1c 10.6 H (4.0-6.0) % Calcium (8.7-10.3) mg/dL AST (13-35) U/L ALT (8-44) U/L Albumin (3.8-4.9) g/dL Albumin/Globulin Ratio (1.60-3.17) g/dL Procalcitonin (0.02-0.09) ng/mL Assessment and Plan Assessment: 1 Acute hypoxemic respiratory failure secondary to COVID-19 pneumonia. The patient was vaccinated 2 with [place] not in August 2020. Outside the window for Remdesivir. 2 Elevated inflammatory markers secondary to above 3 Mild transaminitis secondary to above 4 Obesity with a BMI of 60 kg per metered square 5 Hypothyroidism 6 Hypertension Plan: Plan dated 04/12/2021. The patient's d-dimer was 0.72. We will repeat it. The patient may benefit from a CT angiogram. Currently, she seems relatively stable, though she is on 5 L nasal cannula. Saturations are 92%. The patient remains on vitamin C, vitamin D3, and zinc. In addition, she is getting Decadron and Lovenox at usual doses. We will continue to follow and make recommendations where appropriate. Prognosis is guarded. Time with Patient: Less than 30
[2021-04-12 20:28] LABS: Glucose,Whole Blood 396 mg/dL (75-99)
--- NOTE | 2021-04-13 01:54 | P.PN ---
Subjective Progress Note Date: 04/12/21 This Is a 45-year-old female who was recently admitted with shortness of breath and cough that had been ongoing since last Tuesday and being closely monitored. Patient was found to be positive for bilateral acute COVID-19 pneumonia. Pulmonary and infectious disease have been consulted and following. Patient did receive 2 doses of [place] vaccine earlier this year. Patient denies any recent sick contacts states no one in the home is sick. Patient denies any chest pain or palpitations. Patient is afebrile. Patient is currently maintained on vitamin and zinc supplements, IV dexamethasone, and lovenox and will continue. Patient blood sugars have been elevated and ordered Hba1c. Will continue sliding scale and add long acting insulin as well. Labs: White blood count is 7.65, hemoglobin is 10.7, platelets are 151, sodium is 137, potassium 4.7, creatinine 0.9 AST 87 ALT 61, d dimer .36, hbA1c is 10.6 Review of systems: Constitutional: No reports of fatigue, fever, or chills Cardiovascular: No reports of chest pain or palpitations Respiratory: reports of shortness of breath and dry cough especially when talking and with exertion GI: No reports of nausea, vomiting, or diarrhea : No reports of dysuria or retention Neurovascular: No reports of weakness or numbness All medications have been reviewed Active Medications Acetaminophen (Acetaminophen Tab 500 Mg Tab) 1,000 mg PO Q6HR PRN PRN Reason: Fever>101 Acetaminophen (Acetaminophen Tab 325 Mg Tab) 650 mg PO Q6HR PRN PRN Reason: Mild Pain or Fever > 100.5 Albuterol Sulfate (Albuterol Hfa Inhaler) 2 puff INHALATION RT-Q6H PRN PRN Reason: Shortness Of Breath Or Wheezing Last Admin: 04/11/21 14:58 Dose: 2 puff Documented by: Albuterol Sulfate (Albuterol Hfa Inhaler) 2 puff INHALATION RT-QID [facility] Last Admin: 04/12/21 09:32 Dose: 2 puff Documented by: Ascorbic Acid (Ascorbic Acid 500 Mg Tab) 1,000 mg PO DAILY [facility] Last Admin: 04/12/21 08:06 Dose: 1,000 mg Documented by: Cholecalciferol (Cholecalciferol 125 Mcg (5000 Iu) Tablet) 125 mcg PO DAILY [facility] Last Admin: 04/11/21 15:43 Dose: 125 mcg Documented by: Dexamethasone Sodium Phosphate (Dexamethasone Sod Phosphate 10 Mg/Ml 1 Ml Vial) 6 mg IVP DAILY [facility] Last Admin: 04/12/21 08:05 Dose: 6 mg Documented by: Enoxaparin Sodium (Enoxaparin 40 Mg/0.4 Ml Syringe) 40 mg SQ DAILY [facility] Last Admin: 04/12/21 08:05 Dose: 40 mg Documented by: Guaifenesin (Guaifenesin Syrup 100mg/5ml 200 Mg/10 Ml Cup) 200 mg PO Q6HR PRN PRN Reason: Cough Sodium Chloride (Saline 0.9%) 1,000 mls @ 75 mls/hr IV .[id number] [facility] Last Admin: 04/12/21 05:23 Dose: Not Given Documented by: Ibuprofen (Ibuprofen 400 Mg Tab) 400 mg PO Q6HR PRN PRN Reason: Mild Pain or Fever > 100.5 Insulin Aspart (Insulin Aspart (Novolog) 100 Unit/Ml Vial) 0 unit SQ ACHS [facility]; Protocol Last Admin: 04/12/21 12:24 Dose: 10 unit Documented by: Insulin Detemir (Insulin Detemir (Levemir) 100 Unit/Ml Syr) 15 unit SQ DAILY@0700 [facility] Levothyroxine Sodium (Levothyroxine 75 Mcg Tab) 150 mcg PO DAILY@0630 [facility] Last Admin: 04/12/21 05:32 Dose: 150 mcg Documented by: Naloxone HCl (Naloxone 0.4 Mg/Ml 1 Ml Vial) 0.2 mg IV Q2M PRN PRN Reason: Opioid Reversal Zinc Sulfate (Zinc Sulfate 220 Mg Cap) 220 mg PO DAILY [facility] Last Admin: 04/12/21 08:06 Dose: 220 mg Documented by: Physical exam: Gen: This is a 45-year-old female awake, alert and oriented 3, well-developed, well-nourished, morbidly obese. Temp is 98.7F, pulse is 83, respirations are 18, blood pressure is 136/74, oxygen saturation is 90% on 5 L via nasal cannula HEENT: Head is atraumatic, normocephalic. Pupils equal, round. Sclerae is anicteric. NECK: Supple. No JVD. No lymphadenopathy. No thyromegaly. LUNGS: diminished breath sounds bilaterally. No wheezes or rhonchi. No in tercostal retractions. HEART: Regular rate and rhythm. No murmur. ABDOMEN: Soft. obese. Bowel sounds are present. No masses. No tenderness. EXTREMITIES: No pedal edema. No calf tenderness. NEUROLOGICAL: Patient is awake, alert and oriented x3. Cranial nerves 2 through 12 are grossly intact. Assessment: Acute COVID-19 infection with acute COVID-19 bilateral interstitial pneumonia with acute hypoxic respiratory failure Lymphopenia Hyponatremia Elevated random glucose, diabetes mellitus type 2 new onset, HbA1c is 10.6 Increased AST, ALT, possibly secondary to COVID-19 Elevated LDH Elevated inflammatory markers of COVID-19 [place] hypothyroid [place] obesity next line history of section next line history of cholecystectomy Full code Plan: Recommended continue with current medications, management, and symptomatic treatment. Patient continues with a cough that is dry and worsens when talking for a long period of time or deep inspiration and is having shortness of breath with exertion. She may possibly be a candidate for Remdesivir and infectious disease has been consulted. Will add cough syrup along with incentive spirometer and encourage the patient to use at least 10 times every hour while awake. Encouraged increased activity as tolerated as well. Discussed nursing staff about weaning FiO2 as tolerated and will continue to monitor closely. Blood sugars elevated and hba1c is 10.6 most likely DM type 2 new onset and elevated as well with IV steroids. Will continue sliding scale and add long acting. Will discuss with case management about diabetic testing supplies. D dimer is negative on repeat. Objective - Vital Signs Vital signs: Vital Signs Temp 98.7 F 04/12/21 08:41 Pulse 83 04/12/21 08:41 Resp 18 04/12/21 08:41 BP 136/74 04/12/21 08:41 Pulse Ox 90 L 04/12/21 08:41 Intake & Output 04/11/21 04/12/21 04/12/21 18:59 06:59 18:59 Weight 149.685 kg 149.685 kg Other: # Voids 3 3 - Labs CBC & Chem 7: 04/12/21 06:53 04/12/21 06:53 Labs: Abnormal Lab Results - Last 24 Hours (Table) 04/11/21 04/11/21 04/11/21 Range/Units 13:17 13:17 13:17 Lymphocytes # 0.8 L (1.0-4.8) k/uL D-Dimer (<0.60) mg/L FEU Sodium 135 L (137-145) mmol/L Chloride 97 L (98-107) mmol/L Glucose 241 H (74-99) mg/dL POC Glucose (mg/dL) (75-99) mg/dL AST 100 H (14-36) U/L ALT 68 H (4-34) U/L Lactate Dehydrogenase 870 H (313-618) U/L C-Reactive Protein 25.0 H (<1.0) mg/dL Procalcitonin 0.23 H (0.02-0.09) ng/mL 04/11/21 04/11/21 04/11/21 Range/Units 17:59 20:01 20:44 Lymphocytes # (1.0-4.8) k/uL D-Dimer 0.72 H (<0.60) mg/L FEU Sodium (137-145) mmol/L Chloride (98-107) mmol/L Glucose (74-99) mg/dL POC Glucose (mg/dL) 354 H 429 H (75-99) mg/dL AST (14-36) U/L ALT (4-34) U/L Lactate Dehydrogenase (313-618) U/L C-Reactive Protein (<1.0) mg/dL Procalcitonin (0.02-0.09) ng/mL 04/12/21 Range/Units 06:46 Lymphocytes # (1.0-4.8) k/uL D-Dimer (<0.60) mg/L FEU Sodium (137-145) mmol/L Chloride (98-107) mmol/L Glucose (74-99) mg/dL POC Glucose (mg/dL) 323 H (75-99) mg/dL AST (14-36) U/L ALT (4-34) U/L Lactate Dehydrogenase (313-618) U/L C-Reactive Protein (<1.0) mg/dL Procalcitonin (0.02-0.09) ng/mL
[2021-04-13] MEDS: LEVOTHYROXINE 75 MCG TAB PO SCH (05:35)
[2021-04-13] MEDS ORDERED: INSULIN DETEMIR (LEVEMIR) 100 UNIT/ML SYR SQ SCH ×2 (07:00)
[2021-04-13 07:12] LABS: Glucose,Whole Blood 158 mg/dL (75-99)
[2021-04-13] MEDS: ENOXAPARIN 40 MG/0.4 ML SYRINGE SQ SCH (07:19)
[2021-04-13] MEDS: DEXAMETHASONE SOD PHOSPHATE 10 MG/ML 1 ML VIAL IVP SCH (07:19)
[2021-04-13] MEDS: ASCORBIC ACID 500 MG TAB PO SCH (07:20)
[2021-04-13] MEDS: CHOLECALCIFEROL 125 MCG (5000 IU) TABLET PO SCH (07:20)
[2021-04-13] MEDS: INSULIN ASPART (NovoLOG) 100 UNIT/ML VIAL SQ SCH ×4 (07:20→21:18)
[2021-04-13] MEDS: ALBUTEROL HFA INHALER INHALATION SCH ×4 (07:52→20:48)
--- NOTE | 2021-04-13 08:33 | P.CONS ---
History of Present Illness - Reason for Consult Consult date: 04/12/21 covid 19 pneumonia Requesting physician: Richa Valerio - Chief Complaint shortness of breath x few days - History of Present Illness History of present illness : Patient is 45-year-old female presenting to the ER yesterday afternoon for evaluation of increasing shortness of breath and this patient symptoms started about a week ago before presentation to the hospital patient was diagnosed with a Covid 19 about 5 days before presentation to the hospital and has been treated initially with some symptomatic treatment without any improvement patient presented to hospital with increasing shortness of breath unable to take a deep breath EMS was called and on arrival to the emergency patient was noticed to be satting 60% on room air patient on presentation to the hospital did have a fever of 101.1 F patient currently satting 95% on 5 L nasal cannula patient did have a normal white count with lymphopenia D-dimer was mildly elevated creatinine was normal his liver enzymes mildly elevated procalcitonin mildly elevated patient did have a chest x-ray new bilateral multifocal pneumonia patient was admitted to hospital infectious disease was consulted for further management of underlying COVID-19 pneumonia Review of system: CONSTITUTIONAL: Positive for weakness along with the fever. EYES: No complaint. ENT: No complaint. RESPIRATORY as per history of present illness. CARDIOVASCULAR: No complaint. GENITOURINARY: No complaint. GASTROINTESTINAL, nausea some diarrhea. MUSCULOSKELETAL: No complaint. INTEGUMENTARY: No complaint. PSYCHOLOGIC: No complaint. ENDOCRINE: No complaint. NEUROLOGIC: No complaint. Past medical history : Reviewed, documented below Past surgical history : Reviewed, documented below Social history: Reviewed, documented below Medications: Reviewed, as documented below EXAMINATION: Vital sigans= Reviewed and documented below GENERAL DESCRIPTION: Middle-aged female lying in bed, no distress. No tachypnea or accessory muscle of respiration use. HEENT: Shows Pallor , no scleral icterus. Oral mucous membrane is dry. NECK: Trachea central, no thyromegaly. LUNGS: Unlabored breathing. Decrease intensity of breath sounds. No wheeze or crackle. HEART: S1, S2, regular rate and rhythm. ABDOMEN: Soft, no tenderness , guarding or rigidity EXTREMITIES: No edema of feet. SKIN: No rash, no masses palpable. NEUROLOGICAL: The patient is awake, alert, oriented x3, mood and affect normal. LABS AND RADIOLOGY: Reviewed results see below Assessment : Patient presented to hospital with acute respiratory failure in this patient did have significant hypoxemia patient did have a fever and lymphopenia secondary to COVID-19 pneumonia patient presented to hospital on day 8 of her symptom onset and apparently did not qualify for remdesivir per [facility] policy currently has no evidence of any secondary bacterial pneumonia Plan: 1-patient to continue with the dexamethasone, Lovenox zinc and ascorbic acid 2-droplet isolation respiratory support 3-no need for systemic antibiotic therapy We will follow on clinical condition and cultures to further adjust medication if needed Thank you for this consultation we will follow the patient along with you Past Medical History Past Medical History: Thyroid Disorder Additional Past Medical History / Comment(s): obesity History of Any Multi-Drug Resistant Organisms: None Reported Past Surgical History: Section, Cholecystectomy Past Psychological History: No Psychological Hx Reported Smoking Status: Never smoker Past Alcohol Use History: None Reported Past Drug Use History: None Reported Medications and Allergies Home Medications Medication Instructions Recorded Confirmed Type Levothyroxine Sodium [Synthroid] 150 mcg PO DAILY 04/11/21 04/11/21 History Allergies Allergy/AdvReac Type Severity Reaction Status Date / Time Penicillins Allergy Rash/Hives Verified 04/11/21 14:00 Physical Exam Vitals: Vital Signs Temp Pulse Pulse Resp BP BP Pulse Ox 04/12/21 08:41 98.7 F 83 18 136/74 90 L 04/12/21 07:53 93 14 04/12/21 05:17 97.7 F 93 14 152/91 90 L 04/12/21 02:00 98.0 F 85 20 137/85 89 L 04/11/21 20:00 98.4 F 100 18 136/74 92 L 04/11/21 19:11 98.4 F 100 18 92 L 04/11/21 17:30 95 25 H 136/75 94 L 04/11/21 17:00 92 23 136/45 94 L 04/11/21 16:30 92 20 136/45 94 L 04/11/21 16:00 91 27 H 141/81 94 L 04/11/21 15:30 96 23 117/81 94 L 04/11/21 15:00 94 20 150/87 04/11/21 14:30 99 22 152/86 92 L 04/11/21 14:00 99 25 H 153/92 93 L Intake and Output 04/11/21 04/12/21 04/12/21 22:59 06:59 14:59 Other: # Voids 3 3 Weight 149.685 kg Results CBC & Chem 7: 04/12/21 06:53 04/12/21 06:53 Labs: Abnormal Lab Results - Last 24 Hours (Table) 04/11/21 04/11/21 04/11/21 Range/Units 13:17 17:59 20:01 RBC (4.10-5.20) X 10*6/uL Hgb (12.0-15.0) g/dL Hct (37.2-46.3) % MCHC (32.0-37.0) g/dL Absolute Nucleated RBC (0.00-0.00) X 10*3/uL Immature Gran # (0.00-0.04) X 10*3/uL Eosinophils # (0.04-0.35) X 10*3/uL NRBC/100 WBC Diff (0.0-0.0) /100 WBCS D-Dimer 0.72 H (<0.60) mg/L FEU Glucose (70-110) mg/dL POC Glucose (mg/dL) 354 H (75-99) mg/dL Calcium (8.7-10.3) mg/dL AST (13-35) U/L ALT (8-44) U/L Albumin (3.8-4.9) g/dL Albumin/Globulin Ratio (1.60-3.17) g/dL Procalcitonin 0.23 H (0.02-0.09) ng/mL 04/11/21 04/11/21 04/12/21 Range/Units 20:01 20:44 06:46 RBC (4.10-5.20) X 10*6/uL Hgb (12.0-15.0) g/dL Hct (37.2-46.3) % MCHC (32.0-37.0) g/dL Absolute Nucleated RBC (0.00-0.00) X 10*3/uL Immature Gran # (0.00-0.04) X 10*3/uL Eosinophils # (0.04-0.35) X 10*3/uL NRBC/100 WBC Diff (0.0-0.0) /100 WBCS D-Dimer (<0.60) mg/L FEU Glucose (70-110) mg/dL POC Glucose (mg/dL) 429 H 323 H (75-99) mg/dL Calcium (8.7-10.3) mg/dL AST (13-35) U/L ALT (8-44) U/L Albumin (3.8-4.9) g/dL Albumin/Globulin Ratio (1.60-3.17) g/dL Procalcitonin 0.25 H (0.02-0.09) ng/mL 04/12/21 04/12/21 04/12/21 Range/Units 06:53 06:53 11:19 RBC 3.84 L (4.10-5.20) X 10*6/uL Hgb 10.7 L (12.0-15.0) g/dL Hct 36.8 L (37.2-46.3) % MCHC 29.1 L (32.0-37.0) g/dL Absolute Nucleated RBC 0.02 H (0.00-0.00) X 10*3/uL Immature Gran # 0.09 H (0.00-0.04) X 10*3/uL Eosinophils # 0 L (0.04-0.35) X 10*3/uL NRBC/100 WBC Diff 0.3 H (0.0-0.0) /100 WBCS D-Dimer (<0.60) mg/L FEU Glucose 351 H (70-110) mg/dL POC Glucose (mg/dL) 364 H (75-99) mg/dL Calcium 8.4 L (8.7-10.3) mg/dL AST 87 H (13-35) U/L ALT 61 H (8-44) U/L Albumin 3.4 L (3.8-4.9) g/dL Albumin/Globulin Ratio 1.09 L (1.60-3.17) g/dL Procalcitonin (0.02-0.09) ng/mL
[2021-04-13] MEDS: ZINC SULFATE 220 MG CAP PO SCH (09:45)
--- NOTE | 2021-04-13 10:14 | XR ---
EXAMINATION TYPE: XR chest 1V portable DATE OF EXAM: 04/13/2021 COMPARISON: NONE HISTORY: Shortness of breath TECHNIQUE: Single frontal view of the chest is obtained. FINDINGS: Bilateral patchy areas of infiltrate are stable. Lung apices not entirely included. Heart size normal. Tiny pleural effusions not excluded. Overall osseous structures stable. IMPRESSION: Stable diffuse bilateral infiltrate
[2021-04-13 11:26] LABS: Glucose,Whole Blood 274 mg/dL (75-99)
[2021-04-13 12:05] VITALS: BMI 60.3
--- NOTE | 2021-04-13 12:51 | P.PN ---
Subjective Progress Note Date: 04/13/21 On today's evaluation, this patient is being seen for a follow-up. She is a morbidly obese female patient, who has obesity-related pneumonia. The patient was on 5 L of oxygen by nasal cannula. The patient desaturated and her oxygen requirements went up and currently is on 15 L of oxygen by nasal cannula. Chest x-ray still showing stable bilateral pulmonary infiltrates. Noted the patient is on Decadron. The patient's pro-calcitonin level was low at 0.2. Despite her worsening shortness of breath, the patient is feeling well. She denies having any labored breathing. Her shortness of breath is not any worse. The patient has been diagnosed having diabetes mellitus. Her HbA1c level was quite elevated and probably she had diabetes mellitus even prior to her hospital admission. Her LDH level was 870. She is vaccinated. Her blood sugar is 258 for now and her in the room and A1c is at 10.6. The patient is receiving diabetic education. The patient is on Decadron 6 mg IV every 24 hours and the patient is also on Levemir insulin 25 units in addition to ascites. Coverage. She is also receiving IV fluids with normal saline and at the rate of 75 mL's an hour. Objective - Vital Signs Vital signs: Vital Signs Temp 98.6 F 04/13/21 10:00 Pulse 81 04/13/21 10:00 Resp 16 04/13/21 10:00 BP 151/92 04/13/21 10:00 Pulse Ox 91 L 04/13/21 10:00 Intake & Output 04/12/21 04/13/21 04/13/21 18:59 06:59 18:59 Intake Total 1250 240 Balance 1250 240 Weight 149.685 kg Intake: Intake, IV Titration 600 Amount Sodium Chloride 0.9% 1, 600 000 ml @ 75 mls/hr IV . [id number] DEIDRE Rx#:[id number] Oral 650 240 Other: # Voids 3 3 - Exam No acute distress, oriented 3. Currently, the patient's on 15 L nasal cannula. Saturations are in the low 90s. HEENT examination is grossly unremarkable. Neck supple. Full range of motion. No adenopathy thyromegaly or neck vein distention. Cardiovascular examination reveals regular rhythm rate. S1-S2 normal. No S3 or S4. No discernible murmur noted. Heart rate 93 bpm. Lungs reveal diffuse bilateral rhonchi. Breath sounds equal. No wheezes. No crackles. Abdomen soft bowel sounds are heard. No masses or tenderness. Extremities are intact. No cyanosis clubbing or edema. Skin is without rash or lesion. Neurologic examination is brief but nonfocal. - Labs CBC & Chem 7: 04/12/21 06:53 04/12/21 06:53 Labs: Abnormal Lab Results - Last 24 Hours (Table) 04/12/21 04/12/21 04/12/21 Range/Units 06:53 16:54 20:27 POC Glucose (mg/dL) 420 H 396 H (75-99) mg/dL Hemoglobin A1c 10.6 H (4.0-6.0) % 04/13/21 04/13/21 Range/Units 07:10 11:24 POC Glucose (mg/dL) 158 H 274 H (75-99) mg/dL Hemoglobin A1c (4.0-6.0) % Assessment and Plan Plan: 1 Acute hypoxemic respiratory failure secondary to COVID-19 pneumonia. The patient was vaccinated 2 with [place] not in August 2020. Outside the window for Remdesivir. 2 Elevated inflammatory markers secondary to above 3 Mild transaminitis secondary to above 4 Obesity with a BMI of 60 5 Hypothyroidism 6 Hypertension 7 diabetes mellitus with steroid-induced hyperglycemia. The patient is a new onset diabetes with HbA1c above 10 Plan The patient's condition is decompensated. The patient is currently on 15 L of oxygen by nasal cannula. Her oxygenation is worse and the patient will be kept on Decadron and the patient will be started on Baricitinib per protocol. We'll monitor the inflammatory markers. The chest x-ray findings are stable with stable bilateral pulmonary infiltrates. We'll monitor progression very closely. We'll monitor inflammatory markers. We'll continue to follow. Continue Levemir insulin 25 units daily along with a sinus care coverage. The patient has been diagnosed having a new onset diabetes mellitus.
[2021-04-13] MEDS: BARICITINIB 2 MG TABLET PO SCH (13:36)
[2021-04-13 16:37] LABS: Glucose,Whole Blood 404 mg/dL (75-99)
[2021-04-13 20:57] LABS: Glucose,Whole Blood 379 mg/dL (75-99)
--- NOTE | 2021-04-13 22:43 | PN ---
PROGRESS NOTE DATE OF SERVICE: 04/13/2021 REASON FOR FOLLOWUP: COVID-19 pneumonia. INTERVAL HISTORY: Patient is afebrile, breathing slightly comfortably today, still requiring high-flow oxygen. No chest pain or worsening shortness of breath or cough. No abdominal pain or diarrhea. PHYSICAL EXAMINATION: Blood pressure 151/90 with a pulse of 81, temperature 98.6. General description is a middle-aged female up in the chair in no distress. Respiratory system: Unlabored breathing, decreased bilateral rhonchi. Heart S1-S2 regular rate and rhythm. Abdomen: Soft, no tenderness. Extremities: No edema of the feet. LABS: No new labs have been obtained today. DIAGNOSTIC IMPRESSION AND PLAN: Patient with acute COVID-19 pneumonia. The patient started on Baricitinib and concern for worsening respiratory status to continue with dexamethasone, Lovenox, zinc and ascorbic acid. Continue supportive care. MMODL / IJN: [id number] /
--- NOTE | 2021-04-14 01:22 | P.PN ---
Subjective Progress Note Date: 04/13/21 This Is a 45-year-old female who was recently admitted with shortness of breath and cough that had been ongoing since last Tuesday and being closely monitored. Patient was found to be positive for bilateral acute COVID-19 pneumonia. Pulmonary and infectious disease have been consulted and following. Patient did receive 2 doses of [place] vaccine earlier this year. Patient denies any recent sick contacts states no one in the home is sick. Patient denies any chest pain or palpitations. Patient is afebrile. Patient is currently maintained on vitamin and zinc supplements, IV dexamethasone, and lovenox and will continue. Patient blood sugars have been elevated and ordered Hba1c. Will continue sliding scale and add long acting insulin as well. 04/13/2021 Patient is seen in follow up today and now requiring 15L HF via NC and more dyspneic with exertion. Patient continues to remove her NC as the constant air flow has been causing irritation and a bloody nose. Respiratory added humidific ation. Patient being followed by pulmonary and ID and being started on Baricitinib and will continue lovenox, dexamethasone , vitamin and zinc supplements. Encouraged increased activity as tolerated and will add incentive spirometer. Follow up repeat am labs. Chest xray shows stable infiltrates. Review of systems: Constitutional: No reports of fatigue, fever, or chills Cardiovascular: No reports of chest pain or palpitations Respiratory: reports of shortness of breath and dry cough, reports nose bleed GI: No reports of nausea, vomiting, or diarrhea : No reports of dysuria or retention Neurovascular: No reports of weakness or numbness All medications have been reviewed Active Medications Acetaminophen (Acetaminophen Tab 500 Mg Tab) 1,000 mg PO Q6HR PRN PRN Reason: Fever>101 Acetaminophen (Acetaminophen Tab 325 Mg Tab) 650 mg PO Q6HR PRN PRN Reason: Mild Pain or Fever > 100.5 Albuterol Sulfate (Albuterol Hfa Inhaler) 2 puff INHALATION RT-Q6H PRN PRN Reason: Shortness Of Breath Or Wheezing Last Admin: 04/11/21 14:58 Dose: 2 puff Documented by: Albuterol Sulfate (Albuterol Hfa Inhaler) 2 puff INHALATION RT-QID DEIDRE Last Admin: 04/13/21 20:48 Dose: 2 puff Documented by: Ascorbic Acid (Ascorbic Acid 500 Mg Tab) 1,000 mg PO DAILY [facility] Last Admin: 04/13/21 07:20 Dose: 1,000 mg Documented by: Baricitinib (Baricitinib 2 Mg Tablet) 4 mg PO Q24H [facility] Stop: 04/26/21 14:01 Last Admin: 04/13/21 13:36 Dose: 4 mg Documented by: Cholecalciferol (Cholecalciferol 125 Mcg (5000 Iu) Tablet) 125 mcg PO DAILY [facility] Last Admin: 04/13/21 07:20 Dose: 125 mcg Documented by: Dexamethasone Sodium Phosphate (Dexamethasone Sod Phosphate 10 Mg/Ml 1 Ml Vial) 6 mg IVP DAILY [facility] Last Admin: 04/13/21 07:19 Dose: 6 mg Documented by: Enoxaparin Sodium (Enoxaparin 40 Mg/0.4 Ml Syringe) 40 mg SQ DAILY [facility] Last Admin: 04/13/21 07:19 Dose: 40 mg Documented by: Guaifenesin (Guaifenesin Syrup 100mg/5ml 200 Mg/10 Ml Cup) 200 mg PO Q6HR PRN PRN Reason: Cough Last Admin: 04/12/21 22:03 Dose: 200 mg Documented by: Ibuprofen (Ibuprofen 400 Mg Tab) 400 mg PO Q6HR PRN PRN Reason: Mild Pain or Fever > 100.5 Insulin Aspart (Insulin Aspart (Novolog) 100 Unit/Ml Vial) 0 unit SQ [facility]; Protocol Last Admin: 04/13/21 21:18 Dose: 11 unit Documented by: Insulin Aspart (Insulin Aspart (Novolog) 100 Unit/Ml Vial) 5 unit SQ AC-TID [facility] Insulin Detemir (Insulin Detemir (Levemir) 100 Unit/Ml Syr) 40 unit SQ DAILY@0700 [facility] Levothyroxine Sodium (Levothyroxine 75 Mcg Tab) 150 mcg PO DAILY@0630 [facility] Last Admin: 04/13/21 05:35 Dose: 150 mcg Documented by: Naloxone HCl (Naloxone 0.4 Mg/Ml 1 Ml Vial) 0.2 mg IV Q2M PRN PRN Reason: Opioid Reversal Zinc Sulfate (Zinc Sulfate 220 Mg Cap) 220 mg PO DAILY [facility] Last Admin: 04/13/21 09:45 Dose: 220 mg Documented by: Physical exam: Gen: This is a 45-year-old female awake, alert and oriented 3, well-developed, well-nourished, morbidly obese. HEENT: Head is atraumatic, normocephalic. Pupils equal, round. Sclerae is anicteric. NECK: Supple. No JVD. No lymphadenopathy. No thyromegaly. LUNGS: diminished breath sounds bilaterally. No wheezes or rhonchi. No intercostal retractions. HEART: Regular rate and rhythm. No murmur. ABDOMEN: Soft. obese. Bowel sounds are present. No masses. No tenderness. EXTREMITIES: No pedal edema. No calf tenderness. NEUROLOGICAL: Patient is awake, alert and oriented x3. Cranial nerves 2 through 12 are grossly intact. Assessment: Acute COVID-19 infection with acute COVID-19 bilateral interstitial pneumonia with acute hypoxic respiratory failure Lymphopenia Hyponatremia Elevated random glucose, diabetes mellitus type 2 new onset, HbA1c is 10.6 Increased AST, ALT secondary to COVID-19 Elevated LDH Elevated inflammatory markers of COVID-19 hypothyroid Morbid obesity Full code Plan: Recommended continue with current medications, management, and symptomatic treatment. Patient continues with having shortness of breath with exertion . Patient being followed by pulmonary and ID and will be started on Baricitinib and continue with lovenox, dexamethasone, vitamin and zinc supplements. Patient requiring more oxygen today and currently on 15L HF. Continue incentive spirometer encouraged the patient to use at least 10 times every hour while awake. Encouraged increased activity as tolerated as well. Discussed nursing staff about weaning FiO2 as tolerated and will continue to monitor closely. Blood sugars elevated and hba1c is 10.6 most likely DM type 2 new onset and elevated as well with IV steroids. Will continue sliding scale and add long acting. Will increase long acting and also add pre-meal insulin 5 units TID in addition to sliding scale. Blood sugars have been in the 300-400 range. Repeat am labs ordered. Objective - Vital Signs Vital signs: Vital Signs Temp 97.7 F 04/13/21 06:28 Pulse 82 04/13/21 06:28 Resp 18 04/13/21 06:28 BP 147/95 04/13/21 06:28 Pulse Ox 93 L 04/13/21 07:52 Intake & Output 04/12/21 04/13/21 04/13/21 18:59 06:59 18:59 Intake Total 1250 Balance 1250 Intake: Intake, IV Titration 600 Amount Sodium Chloride 0.9% 1, 600 000 ml @ 75 mls/hr IV . [id number] [facility] Rx#:[id number] Oral 650 Other: # Voids 3 3 - Labs CBC & Chem 7: 04/12/21 06:53 04/12/21 06:53 Labs: Abnormal Lab Results - Last 24 Hours (Table) 04/11/21 04/12/21 04/12/21 Range/Units 20:01 06:53 06:53 RBC 3.84 L (4.10-5.20) X 10*6/uL Hgb 10.7 L (12.0-15.0) g/dL Hct 36.8 L (37.2-46.3) % MCHC 29.1 L (32.0-37.0) g/dL Absolute Nucleated RBC 0.02 H (0.00-0.00) X 10*3/uL Immature Gran # 0.09 H (0.00-0.04) X 10*3/uL Eosinophils # 0 L (0.04-0.35) X 10*3/uL NRBC/100 WBC Diff 0.3 H (0.0-0.0) /100 WBCS Glucose 351 H (70-110) mg/dL POC Glucose (mg/dL) (75-99) mg/dL Hemoglobin A1c (4.0-6.0) % Calcium 8.4 L (8.7-10.3) mg/dL AST 87 H (13-35) U/L ALT 61 H (8-44) U/L Albumin 3.4 L (3.8-4.9) g/dL Albumin/Globulin Ratio 1.09 L (1.60-3.17) g/dL Procalcitonin 0.25 H (0.02-0.09) ng/mL 04/12/21 04/12/21 04/12/21 Range/Units 06:53 11:19 16:54 RBC (4.10-5.20) X 10*6/uL Hgb (12.0-15.0) g/dL Hct (37.2-46.3) % MCHC (32.0-37.0) g/dL Absolute Nucleated RBC (0.00-0.00) X 10*3/uL Immature Gran # (0.00-0.04) X 10*3/uL Eosinophils # (0.04-0.35) X 10*3/uL NRBC/100 WBC Diff (0.0-0.0) /100 WBCS Glucose (70-110) mg/dL POC Glucose (mg/dL) 364 H 420 H (75-99) mg/dL Hemoglobin A1c 10.6 H (4.0-6.0) % Calcium (8.7-10.3) mg/dL AST (13-35) U/L ALT (8-44) U/L Albumin (3.8-4.9) g/dL Albumin/Globulin Ratio (1.60-3.17) g/dL Procalcitonin (0.02-0.09) ng/mL 04/12/21 04/13/21 Range/Units 20:27 07:10 RBC (4.10-5.20) X 10*6/uL Hgb (12.0-15.0) g/dL Hct (37.2-46.3) % MCHC (32.0-37.0) g/dL Absolute Nucleated RBC (0.00-0.00) X 10*3/uL Immature Gran # (0.00-0.04) X 10*3/uL Eosinophils # (0.04-0.35) X 10*3/uL NRBC/100 WBC Diff (0.0-0.0) /100 WBCS Glucose (70-110) mg/dL POC Glucose (mg/dL) 396 H 158 H (75-99) mg/dL Hemoglobin A1c (4.0-6.0) % Calcium (8.7-10.3) mg/dL AST (13-35) U/L ALT (8-44) U/L Albumin (3.8-4.9) g/dL Albumin/Globulin Ratio (1.60-3.17) g/dL Procalcitonin (0.02-0.09) ng/mL
[2021-04-14 03:00] LABS: Glucose,Whole Blood 225 mg/dL (75-99)
[2021-04-14] MEDS: LEVOTHYROXINE 75 MCG TAB PO SCH (05:33)
[2021-04-14 06:31] LABS: Basophils % (A) 0 %; Eosinophils % (A) 0 %; HCT 34.5 % (34.0-46.0); HGB 10.8 gm/dL (11.4-16.0); Hypochromasia Slight; Lymphocytes # (A) 1.7 k/uL (1.0-4.8); Lymphocytes % (A) 22 %; MCH 28.9 pg (25.0-35.0); MCHC 31.4 g/dL (31.0-37.0); MCV 92.2 fL (80.0-100.0); Mean Platelet Volume 8.3; Monocytes # (A) 0.4 k/uL (0-1.0); Monocytes % (A) 6 %; Neutrophils # (A) 5.2 k/uL (1.3-7.7); Neutrophils % (A) 69 %; Platelet Count 243 k/uL (150-450); RBC 3.74 m/uL (3.80-5.40); RDW 14.2 % (11.5-15.5); WBC 7.5 k/uL (3.8-10.6)
[2021-04-14] MEDS ORDERED: amLODIPine 5 MG TAB PO STA (06:52)
[2021-04-14 06:54] LABS: Glucose,Whole Blood 258 mg/dL (75-99)
[2021-04-14 07:02] LABS: ALT 45 U/L (4-34); AST 61 U/L (14-36); African American GFR (CKD) >90 (>60 ml/min/1.73 sqM); Albumin 3.2 g/dL (3.5-5.0); Albumin/Globulin Ratio 0.9; Alkaline Phosphatase 78 U/L (38-126); Anion Gap 7 mmol/L; Blood Urea Nitrogen 19 mg/dL (7-17); Calcium 8.9 mg/dL (8.4-10.2); Carbon Dioxide 29 mmol/L (22-30); Chloride 102 mmol/L (98-107); Globulin 3.6 g/dL; Glucose 253 mg/dL (74-99); Non-African American GFR(CKD) 84 (>60 ml/min/1.73 sqM); Potassium 4.4 mmol/L (3.5-5.1); Sodium 138 mmol/L (137-145); Total Bilirubin 0.5 mg/dL (0.2-1.3); Total Protein 6.8 g/dL (6.3-8.2)
[2021-04-14] MEDS: ENOXAPARIN 40 MG/0.4 ML SYRINGE SQ SCH (08:08)
[2021-04-14] MEDS: ZINC SULFATE 220 MG CAP PO SCH (08:08)
[2021-04-14] MEDS: ASCORBIC ACID 500 MG TAB PO SCH (08:08)
[2021-04-14] MEDS: DEXAMETHASONE SOD PHOSPHATE 10 MG/ML 1 ML VIAL IVP SCH (08:08)
[2021-04-14] MEDS: CHOLECALCIFEROL 125 MCG (5000 IU) TABLET PO SCH (08:08)
[2021-04-14] MEDS: INSULIN ASPART (NovoLOG) 100 UNIT/ML VIAL SQ SCH ×7 (08:08→20:27)
[2021-04-14] MEDS: INSULIN DETEMIR (LEVEMIR) 100 UNIT/ML SYR SQ SCH (08:09)
[2021-04-14] MEDS: ALBUTEROL HFA INHALER INHALATION SCH ×4 (09:15→21:10)
[2021-04-14 09:54] LABS: C Reactive Protein 5.9 mg/dL (0.00-0.80)
[2021-04-14 11:47] LABS: Glucose,Whole Blood 206 mg/dL (75-99)
--- NOTE | 2021-04-14 12:59 | P.PN ---
Subjective Progress Note Date: 04/14/21 04/14/2021, I'm seeing the patient for a follow-up. Is a case of COVID 19 related pneumonia with hypoxic respiratory failure. The patient is currently on 15 L of oxygen by nasal cannula. Noted the patient's oxygenation was gradually getting worse. Based on that, her treatment was Stopped and the patient is currently on a combination of Decadron and Baricitinib. Today she is feeling well. She has not getting any worse. Her condition has stabilized. She remains on 15 L of oxygen by nasal cannula. She is diabetic. She is on Levemir insulin 25 units along with a sliding scale insulin coverage. She is still on IV fluids. She has limited cough. No significant sputum production. No he moptysis no pleurisy. No altered mentation. Inflammatory markers have been improving. Objective - Vital Signs Vital signs: Vital Signs Temp 98.0 F 04/14/21 10:15 Pulse 82 04/14/21 10:15 Resp 16 04/14/21 10:15 BP 155/91 04/14/21 10:15 Pulse Ox 90 L 04/14/21 10:15 Intake & Output 04/13/21 04/14/21 04/14/21 18:59 06:59 18:59 Intake Total 600 Balance 600 Weight 149.685 kg Intake: Oral 600 Other: Voiding Method Bedside Commode Toilet Bedside Commode # Voids 2 2 # Bowel Movements 1 - Exam No acute distress, oriented 3. Currently, the patient's on 15 L nasal cannula. Saturations are in the low 90s. HEENT examination is grossly unremarkable. Neck supple. Full range of motion. No adenopathy thyromegaly or neck vein distention. Cardiovascular examination reveals regular rhythm rate. S1-S2 normal. No S3 or S4. No discernible murmur noted. Heart rate 93 bpm. Lungs reveal diffuse bilateral rhonchi. Breath sounds equal. No wheezes. No crackles. Abdomen soft bowel sounds are heard. No masses or tenderness. Extremities are intact. No cyanosis clubbing or edema. Skin is without rash or lesion. Neurologic examination is brief but nonfocal. - Labs CBC & Chem 7: 04/14/21 05:25 04/14/21 05:25 Labs: Abnormal Lab Results - Last 24 Hours (Table) 04/13/21 04/13/21 04/14/21 Range/Units 16:24 20:52 02:56 RBC (3.80-5.40) m/uL Hgb (11.4-16.0) gm/dL BUN (7-17) mg/dL Glucose (74-99) mg/dL POC Glucose (mg/dL) 404 H 379 H 225 H (75-99) mg/dL AST (14-36) U/L ALT (4-34) U/L Lactate Dehydrogenase (120-246) U/L C-Reactive Protein (0.00-0.80) mg/dL Albumin (3.5-5.0) g/dL 04/14/21 04/14/21 04/14/21 Range/Units 05:25 05:25 05:25 RBC 3.74 L (3.80-5.40) m/uL Hgb 10.8 L (11.4-16.0) gm/dL BUN 19 H (7-17) mg/dL Glucose 253 H (74-99) mg/dL POC Glucose (mg/dL) (75-99) mg/dL AST 61 H (14-36) U/L ALT 45 H (4-34) U/L Lactate Dehydrogenase 381 H (120-246) U/L C-Reactive Protein 5.90 H (0.00-0.80) mg/dL Albumin 3.2 L (3.5-5.0) g/dL 04/14/21 04/14/21 Range/Units 06:53 11:46 RBC (3.80-5.40) m/uL Hgb (11.4-16.0) gm/dL BUN (7-17) mg/dL Glucose (74-99) mg/dL POC Glucose (mg/dL) 258 H 206 H (75-99) mg/dL AST (14-36) U/L ALT (4-34) U/L Lactate Dehydrogenase (120-246) U/L C-Reactive Protein (0.00-0.80) mg/dL Albumin (3.5-5.0) g/dL Assessment and Plan Plan: 1 Acute hypoxemic respiratory failure secondary to COVID-19 pneumonia. The patient was vaccinated 2 with [place] in August 2020. Outside the window for Remdesivir. 2 Elevated inflammatory markers secondary to above 3 Mild transaminitis secondary to above 4 Obesity with a BMI of 60 5 Hypothyroidism 6 Hypertension 7 diabetes mellitus with steroid-induced hyperglycemia. The patient is a new onset diabetes with HbA1c above 10 Plan Continue Decadron Continue Baricitinib per protocol Keep the patient on 15 L per minute nasal cannula and gradually wean it down as tolerated Inflammatory markers are low Keep Levemir insulin for blood sugar control currently on 40 units along with that she is on a sliding scale coverage. Continue Lovenox for DVT prophylaxis 40 mg subcu We'll make further recommendations based on her progress.
[2021-04-14] MEDS: BARICITINIB 2 MG TABLET PO SCH (14:17)
--- NOTE | 2021-04-14 16:37 | P.PN ---
Subjective Progress Note Date: 04/14/21 This Is a 45-year-old female who was recently admitted with shortness of breath and cough that had been ongoing since last Tuesday and being closely monitored. Patient was found to be positive for bilateral acute COVID-19 pneumonia. Pulmonary and infectious disease have been consulted and following. Patient did receive 2 doses of Mederna vaccine earlier this year. Patient denies any recent sick contacts states no one in the home is sick. Patient denies any chest pain or palpitations. Patient is afebrile. Patient is currently maintained on vitamin and zinc supplements, IV dexamethasone, and lovenox and will continue. Patient blood sugars have been elevated and ordered Hba1c. Will continue sliding scale and add long acting insulin as well. 04/13/2021 Patient is seen in follow up today and now requiring 15L HF via NC and more dyspneic with exertion. Patient continues to remove her NC as the constant air flow has been causing irritation and a bloody nose. Respiratory added humidific ation. Patient being followed by pulmonary and ID and being started on Baricitinib and will continue lovenox, dexamethasone , vitamin and zinc supplements. Encouraged increased activity as tolerated and will add incentive spirometer. Follow up repeat am labs. Chest xray shows stable infiltrates. 04/14/2021 She is seen this morning currently on 15 L high flow and being closely monitored by pulmonary along with infectious disease. Patient is maintained on Baricitinib along with IV dexamethasone, Lovenox, vitamin and zinc supplements and will continue. Patient is using incentive spirometer and has been getting up with some continued dyspnea on exertion. Patient's blood sugars slightly imp roved and will continue current regimen. Patient does not have a history of hypertension although blood pressures have been elevated and will add low-dose Norvasc and continue to monitor closely. labs: White blood count is 7.5, hemoglobin is 10.5, platelets are 243, d-dimer 0.46, sodium is 138, potassium 4.4, creatinine 0.84, liver functions mildly elevated, LDH is 381, CRP is 5.9. Review of systems: Constitutional: No reports of fatigue, fever, or chills Cardiovascular: No reports of chest pain or palpitations Respiratory: reports of shortness of breath and dry cough GI: No reports of nausea, vomiting, or diarrhea : No reports of dysuria or retention Neurovascular: No reports of weakness or numbness All medications have been reviewed Active Medications Acetaminophen (Acetaminophen Tab 500 Mg Tab) 1,000 mg PO Q6HR PRN PRN Reason: Fever>101 Acetaminophen (Acetaminophen Tab 325 Mg Tab) 650 mg PO Q6HR PRN PRN Reason: Mild Pain or Fever > 100.5 Albuterol Sulfate (Albuterol Hfa Inhaler) 2 puff INHALATION RT-Q6H PRN PRN Reason: Shortness Of Breath Or Wheezing Last Admin: 04/11/21 14:58 Dose: 2 puff Documented by: Albuterol Sulfate (Albuterol Hfa Inhaler) 2 puff INHALATION RT-QID [facility] Last Admin: 04/14/21 12:26 Dose: 2 puff Documented by: Amlodipine Besylate (Amlodipine 5 Mg Tab) 5 mg PO DAILY [facility] Ascorbic Acid (Ascorbic Acid 500 Mg Tab) 1,000 mg PO DAILY [facility] Last Admin: 04/14/21 08:08 Dose: 1,000 mg Documented by: Baricitinib (Baricitinib 2 Mg Tablet) 4 mg PO Q24H [facility] Stop: 04/26/21 14:01 Last Admin: 04/14/21 14:17 Dose: 4 mg Documented by: Cholecalciferol (Cholecalciferol 125 Mcg (5000 Iu) Tablet) 125 mcg PO DAILY [facility] Last Admin: 04/14/21 08:08 Dose: 125 mcg Documented by: Dexamethasone Sodium Phosphate (Dexamethasone Sod Phosphate 10 Mg/Ml 1 Ml Vial) 6 mg IVP DAILY [facility] Last Admin: 04/14/21 08:08 Dose: 6 mg Documented by: Enoxaparin Sodium (Enoxaparin 40 Mg/0.4 Ml Syringe) 40 mg SQ DAILY [facility] Last Admin: 04/14/21 08:08 Dose: 40 mg Documented by: Guaifenesin (Guaifenesin Syrup 100mg/5ml 200 Mg/10 Ml Cup) 200 mg PO Q6HR PRN PRN Reason: Cough Last Admin: 04/12/21 22:03 Dose: 200 mg Documented by: Hydralazine HCl (Hydralazine Hcl 25 Mg Tab) 25 mg PO QID PRN PRN Reason: Blood Pressure - High Ibuprofen (Ibuprofen 400 Mg Tab) 400 mg PO Q6HR PRN PRN Reason: Mild Pain or Fever > 100.5 Insulin Aspart (Insulin Aspart (Novolog) 100 Unit/Ml Vial) 0 unit SQ ACHS [facility]; Protocol Last Admin: 04/14/21 12:16 Dose: 4 unit Documented by: Insulin Aspart (Insulin Aspart (Novolog) 100 Unit/Ml Vial) 5 unit SQ AC-TID [facility] Last Admin: 04/14/21 12:16 Dose: 5 unit Documented by: Insulin Detemir (Insulin Detemir (Levemir) 100 Unit/Ml Syr) 40 unit SQ DAILY@0700 [facility] Last Admin: 04/14/21 08:09 Dose: 40 unit Documented by: Levothyroxine Sodium (Levothyroxine 75 Mcg Tab) 150 mcg PO DAILY@0630 [facility] Last Admin: 04/14/21 05:33 Dose: 150 mcg Documented by: Naloxone HCl (Naloxone 0.4 Mg/Ml 1 Ml Vial) 0.2 mg IV Q2M PRN PRN Reason: Opioid Reversal Zinc Sulfate (Zinc Sulfate 220 Mg Cap) 220 mg PO DAILY [facility] Last Admin: 04/14/21 08:08 Dose: 220 mg Documented by: Physical exam: Gen: This is a 45-year-old female awake, alert and oriented 3, well-developed, well-nourished, morbidly obese. HEENT: Head is atraumatic, normocephalic. Pupils equal, round. Sclerae is anicteric. NECK: Supple. No JVD. No lymphadenopathy. No thyromegaly. LUNGS: diminished breath sounds bilaterally. No wheezes or rhonchi. Slightly improved air entry bilaterally. No intercostal retractions. HEART: Regular rate and rhythm. No murmur. ABDOMEN: Soft. obese. Bowel sounds are present. No masses. No tenderness. EXTREMITIES: No pedal edema. No calf tenderness. NEUROLOGICAL: Patient is awake, alert and oriented x3. Cranial nerves 2 through 12 are grossly intact. Assessment: Acute COVID-19 infection with acute COVID-19 bilateral interstitial pneumonia with acute hypoxic respiratory failure Lymphopenia Hyponatremia, improved Hypertension Elevated random glucose, diabetes mellitus type 2 new onset, HbA1c is 10.6 Increased AST, ALT secondary to COVID-19 Elevated LDH Elevated inflammatory markers of COVID-19 hypothyroid Morbid obesity Full code Plan: Recommended continue with current medications, management, and symptomatic treatment. Patient continues with having shortness of breath with exertion . Patient being followed by pulmonary and ID and maintained on Baricitinib and continue with lovenox, dexamethasone, vitamin and zinc supplements. Patient currently on 15L HF. Continue incentive spirometer encouraged the patient to use at least 10 times every hour while awake. Encouraged increased activity as tolerated as well. Discussed nursing staff about weaning FiO2 as tolerated and will continue to monitor closely. Blood sugars slightly improved and will continue current medication regimen. Blood pressure mildly elevated will add low-dose Norvasc and monitor closely. Patient does not have a history of hypertension. Objective - Vital Signs Vital signs: Vital Signs Temp 98.0 F 04/14/21 05:50 Pulse 76 04/14/21 05:50 Resp 18 04/14/21 05:50 BP 178/96 04/14/21 05:50 Pulse Ox 91 L 04/14/21 05:50 Intake & Output 04/13/21 04/14/21 04/14/21 18:59 06:59 18:59 Intake Total 600 Balance 600 Weight 149.685 kg Intake: Oral 600 Other: Voiding Method Bedside Commode Toilet Bedside Commode # Voids 2 2 # Bowel Movements 1 - Labs CBC & Chem 7: 04/14/21 05:25 04/14/21 05:25 Labs: Abnormal Lab Results - Last 24 Hours (Table) 04/13/21 04/13/21 04/13/21 Range/Units 11:24 16:24 20:52 RBC (3.80-5.40) m/uL Hgb (11.4-16.0) gm/dL BUN (7-17) mg/dL Glucose (74-99) mg/dL POC Glucose (mg/dL) 274 H 404 H 379 H (75-99) mg/dL AST (14-36) U/L ALT (4-34) U/L Albumin (3.5-5.0) g/dL 04/14/21 04/14/21 04/14/21 Range/Units 02:56 05:25 05:25 RBC 3.74 L (3.80-5.40) m/uL Hgb 10.8 L (11.4-16.0) gm/dL BUN 19 H (7-17) mg/dL Glucose 253 H (74-99) mg/dL POC Glucose (mg/dL) 225 H (75-99) mg/dL AST 61 H (14-36) U/L ALT 45 H (4-34) U/L Albumin 3.2 L (3.5-5.0) g/dL 04/14/21 Range/Units 06:53 RBC (3.80-5.40) m/uL Hgb (11.4-16.0) gm/dL BUN (7-17) mg/dL Glucose (74-99) mg/dL POC Glucose (mg/dL) 258 H (75-99) mg/dL AST (14-36) U/L ALT (4-34) U/L Albumin (3.5-5.0) g/dL
[2021-04-14 16:41] LABS: Glucose,Whole Blood 330 mg/dL (75-99)
[2021-04-14] MEDS: ACETAMINOPHEN TAB 325 MG TAB PO PRN (19:36)
[2021-04-14 20:15] LABS: Glucose,Whole Blood 278 mg/dL (75-99)
--- NOTE | 2021-04-14 22:28 | PN ---
PROGRESS NOTE DATE OF SERVICE: 04/14/2021 REASON FOR FOLLOWUP: COVID-19 pneumonia. INTERVAL HISTORY: The patient is afebrile. The patient is breathing slightly comfortably; however, requiring high-flow oxygen. The patient denies having any chest pain. No worsening cough or sputum production. No abdominal pain or diarrhea. PHYSICAL EXAMINATION: Blood pressure 160/97, pulse of 73, temperature 98.5. She is 91% on 15 L high-flow oxygen. General description is a middle-aged female up in the bed in no distress. Respiratory system: Unlabored breathing, decreased intensity of breath sounds. No wheeze. Heart S1, S2. Regular rate and rhythm. Abdomen soft, no tenderness. LABS: Hemoglobin is 10.9, white count 7.5, creatinine 0.84. DIAGNOSTIC IMPRESSION AND PLAN: Patient with acute COVID-19 pneumonia, slight worsening of her clinical condition. Patient has been started on baricitinib. That will be continued in addition to dexamethasone, Lovenox, zinc and ascorbic acid. Monitor clinical course closely. Prognosis remains guarded. MMODL / IJN: [id number] /
[2021-04-15] MEDS: LEVOTHYROXINE 75 MCG TAB PO SCH (05:37)
[2021-04-15 06:56] LABS: Glucose,Whole Blood 126 mg/dL (75-99)
[2021-04-15] MEDS: ALBUTEROL HFA INHALER INHALATION SCH ×4 (07:52→20:51)
[2021-04-15] MEDS ORDERED: amLODIPine 5 MG TAB PO SCH (09:00)
[2021-04-15] MEDS: ENOXAPARIN 40 MG/0.4 ML SYRINGE SQ SCH (09:17)
[2021-04-15] MEDS: ZINC SULFATE 220 MG CAP PO SCH (09:17)
[2021-04-15] MEDS: DEXAMETHASONE SOD PHOSPHATE 10 MG/ML 1 ML VIAL IVP SCH (09:17)
[2021-04-15] MEDS: INSULIN DETEMIR (LEVEMIR) 100 UNIT/ML SYR SQ SCH (09:18)
[2021-04-15] MEDS: INSULIN ASPART (NovoLOG) 100 UNIT/ML VIAL SQ SCH ×7 (09:18→20:58)
[2021-04-15] MEDS: ASCORBIC ACID 500 MG TAB PO SCH (09:19)
[2021-04-15] MEDS: CHOLECALCIFEROL 125 MCG (5000 IU) TABLET PO SCH (09:19)
[2021-04-15 09:39] LABS: African American GFR (CKD) 99.6 (60.0-200.0); Albumin 3.4 g/dL (3.8-4.9); Albumin/Globulin Ratio 1.01 (1.60-3.17); Anion Gap 13.3 mmol/L (10.00-18.00); BUN/Creat Ratio 28.4 Ratio (12.00-20.00); Blood Urea Nitrogen 23.4 mg/dL (9.0-27.0); Calcium 8.8 mg/dL (8.7-10.3); Carbon Dioxide 26.1 mmol/L (20.0-27.5); Globulin 3.4 g/dL (1.6-3.3); Non-African American GFR(CKD) 85.9 (60.0-200.0); Potassium 4.4 mmol/L (3.5-5.5); Total Bilirubin 0.5 mg/dL (0.30-1.20); Total Protein 6.7 g/dL (6.2-8.2)
[2021-04-15 11:24] LABS: Glucose,Whole Blood 190 mg/dL (75-99)
[2021-04-15 14:09] LABS: Basophils # (M) 0 X 10*3/uL (0.00-0.10); Eosinophils # (M) 0 X 10*3/uL (0.04-0.35); HCT 37.9 % (37.2-46.3); HGB 11.1 g/dL (12.0-15.0); Lymphocytes # (M) 3.23 X 10*3/uL (0.90-5.00); MCH 27.8 pg (27.0-32.0); MCHC 29.3 g/dL (32.0-37.0); Mean Platelet Volume 11.2 fL (9.5-12.2); Metamyelocytes % 1 % (0-0); Monocytes # (M) 0.65 X 10*3/uL (0.20-1.00); Neutrophils # (M) 5.26 X 10*3/uL (2.00-8.90); Neutrophils % (M) 57 %; Platelet Count 260 X 10*3/uL (140-440); RBC 3.99 X 10*6/uL (4.10-5.20); RDW 14.5 % (11.5-14.5); WBC 9.22 X 10*3/uL (4.50-10.00)
--- NOTE | 2021-04-15 15:30 | P.PN ---
Subjective Progress Note Date: 04/15/21 Principal diagnosis: dyspnea On 04/2021 patient seen in follow-up on medical surgical floor, she is breathing comfortably, overall she is although she still requiring high flow oxygen, she is on 11 L O2, with a pulse ox of 80-95%, breathing comfortably, lung sounds are positive for coarse crackles, she's been afebrile, vital signs have been stable, she's had no acute events overnight. Today's labs have been reviewed, her white count is 9.2, hemoglobin is 11.1, platelet count is 260, electrolytes and renal profile are within normal limits, AST is 98, ALT is 66, alk phos is 79, pro calcitonin was negative at 0.25, patient remains on Decadron 6 mg daily, Lovenox 40 mg daily, she is on COVID-19 vitamins, Objective - Vital Signs Vital signs: Vital Signs Temp 98.6 F 04/15/21 13:36 Pulse 82 04/15/21 13:36 Resp 17 04/15/21 13:36 BP 164/97 04/15/21 13:36 Pulse Ox 88 L 04/15/21 13:36 Intake & Output 04/14/21 04/15/21 04/15/21 18:59 06:59 18:59 Intake Total 236 480 Output Total 300 Balance 236 180 Intake: Oral 236 480 Output: Urine 300 Other: Voiding Method Toilet Toilet Toilet Bedside Commode Bedside Commode # Voids 1 - Exam GENERAL EXAM: Alert, very pleasant, 45-year-old morbidly obese white female, on 11 L of oxygen, pulse ox of 88-95% comfortable in no apparent distress. HEAD: Normocephalic/atraumatic. EYES: Normal reaction of pupils, equal size. Conjunctiva pink, sclera white. NOSE: Clear with pink turbinates. THROAT: No erythema or exudates. NECK: No masses, no JVD, no thyroid enlargement, no adenopathy. CHEST: No chest wall deformity. Symmetrical expansion. LUNGS: Equal air entry with bilateral crackles CVS: Regular rate and rhythm, normal S1 and S2, no gallops, no murmurs, no rubs ABDOMEN: Soft, nontender. No hepatosplenomegaly, normal bowel sounds, no guarding or rigidity. EXTREMITIES: No clubbing, no edema, no cyanosis, 2+ pulses and upper and lower extremities. MUSCULOSKELETAL: Muscle strength and tone normal. SPINE: No scoliosis or deformity SKIN: No rashes CENTRAL NERVOUS SYSTEM: Alert and oriented -3. No focal deficits, tone is normal in all 4 extremities. PSYCHIATRIC: Alert and oriented -3. Appropriate affect. Intact judgment and insight. - Labs CBC & Chem 7: 04/15/21 05:15 04/15/21 05:15 Labs: Abnormal Lab Results - Last 24 Hours (Table) 04/14/21 04/14/21 04/15/21 Range/Units 16:40 20:13 05:15 RBC 3.99 L (4.10-5.20) X 10*6/uL Hgb 11.1 L (12.0-15.0) g/dL MCHC 29.3 L (32.0-37.0) g/dL Absolute Nucleated RBC 0.02 H (0.00-0.00) X 10*3/uL Metamyelocytes % 1 H (0-0) % Eosinophils # (Manual) 0 L (0.04-0.35) X 10*3/uL NRBC/100 WBC Diff 0.2 H (0.0-0.0) /100 WBCS BUN/Creatinine Ratio (12.00-20.00) Ratio Glucose (70-110) mg/dL POC Glucose (mg/dL) 330 H 278 H (75-99) mg/dL AST (13-35) U/L ALT (8-44) U/L Albumin (3.8-4.9) g/dL Globulin (1.6-3.3) g/dL Albumin/Globulin Ratio (1.60-3.17) g/dL 04/15/21 04/15/21 04/15/21 Range/Units 05:15 06:54 11:15 RBC (4.10-5.20) X 10*6/uL Hgb (12.0-15.0) g/dL MCHC (32.0-37.0) g/dL Absolute Nucleated RBC (0.00-0.00) X 10*3/uL Metamyelocytes % (0-0) % Eosinophils # (Manual) (0.04-0.35) X 10*3/uL NRBC/100 WBC Diff (0.0-0.0) /100 WBCS BUN/Creatinine Ratio 28.40 H (12.00-20.00) Ratio Glucose 135 H (70-110) mg/dL POC Glucose (mg/dL) 126 H 190 H (75-99) mg/dL AST 98 H (13-35) U/L ALT 66 H (8-44) U/L Albumin 3.4 L (3.8-4.9) g/dL Globulin 3.4 H (1.6-3.3) g/dL Albumin/Globulin Ratio 1.01 L (1.60-3.17) g/dL Assessment and Plan Plan: 1 Acute hypoxemic respiratory failure secondary to COVID-19 pneumonia. The patient was vaccinated 2 with Moderna in August 2020. Outside the window for Remdesivir. 2 Elevated inflammatory markers secondary to above 3 Mild transaminitis secondary to above 4 Obesity with a BMI of 60 5 Hypothyroidism 6 Hypertension 7 diabetes mellitus with steroid-induced hyperglycemia. The patient is a new onset diabetes with HbA1c above 10 Plan: Continue current medical treatment, Continue baricitinib Decadron, and Lovenox Patient is feeling better, still requiring high flow oxygen at 11 L, continue weaning FiO2 inflammatory markers are improving, Her last d-dimer was within normal limits, Overall she is feeling better, no worsening dyspnea, mild cough Encourage deep breathing and coughing, increase activity as tolerated We'll continue to follow her clinical course I performed a history & physical examination of the patient and discussed their management with my nurse practitioner, Shanice Parker. I reviewed the nurse practitioner's note and agree with the documented findings and plan of care. Lung sounds are positive for diffuse crackles throughout the lung truong. The findings and the impression was discussed with the patient. I attest to the documentation by the nurse practitioner. Time with Patient: Less than 30
[2021-04-15] MEDS: BARICITINIB 2 MG TABLET PO SCH (15:35)
[2021-04-15 16:44] LABS: Glucose,Whole Blood 308 mg/dL (75-99)
--- NOTE | 2021-04-15 16:49 | PN ---
PROGRESS NOTE DATE OF SERVICE: 04/15/2021 REASON FOR FOLLOWUP: COVID-19 pneumonia. INTERVAL HISTORY: The patient is afebrile. The patient is breathing more comfortably today. The patient denies any chest pain. No shortness of breath. Minimal cough, not bringing up any sputum. No vomiting. No abdominal pain, no diarrhea. PHYSICAL EXAMINATION: Blood pressure 164/97, pulse of 82, temperature 98.6. She is 95% on 11 L nasal cannula. General description is a middle-aged female up in the chair in no distress. Respiratory system: Unlabored breathing, decreased intensity of breath sounds, no wheeze. Heart S1, S2. Regular rate and rhythm. Abdomen soft, no tenderness. LABS: Hemoglobin 11.9, white count 9.22, creatinine 0.8. IMPRESSION/PLAN: Patient with acute COVID-19 pneumonia in this patient did have minimal clinical improvement, on less oxygen. Patient to continue with baricitinib, dexamethasone, Lovenox, zinc and ascorbic acid along with respiratory support and monitor clinical course closely. Continue supportive care. MMODL / IJN: [id number] /
[2021-04-15] MEDS: hydrALAZINE HCL 25 MG TAB PO PRN (17:27)
[2021-04-15 20:32] LABS: Glucose,Whole Blood 334 mg/dL (75-99)
--- NOTE | 2021-04-15 23:49 | P.PN ---
Subjective Progress Note Date: 04/15/21 This Is a 45-year-old female who was recently admitted with shortness of breath and cough that had been ongoing since last Tuesday and being closely monitored. Patient was found to be positive for bilateral acute COVID-19 pneumonia. Pulmonary and infectious disease have been consulted and following. Patient did receive 2 doses of Mederna vaccine earlier this year. Patient denies any recent sick contacts states no one in the home is sick. Patient denies any chest pain or palpitations. Patient is afebrile. Patient is currently maintained on vitamin and zinc supplements, IV dexamethasone, and lovenox and will continue. Patient blood sugars have been elevated and ordered Hba1c. Will continue sliding scale and add long acting insulin as well. 04/13/2021 Patient is seen in follow up today and now requiring 15L HF via NC and more dyspneic with exertion. Patient continues to remove her NC as the constant air flow has been causing irritation and a bloody nose. Respiratory added humidific ation. Patient being followed by pulmonary and ID and being started on Baricitinib and will continue lovenox, dexamethasone , vitamin and zinc supplements. Encouraged increased activity as tolerated and will add incentive spirometer. Follow up repeat am labs. Chest xray shows stable infiltrates. 04/14/2021 She is seen this morning currently on 15 L high flow and being closely monitored by pulmonary along with infectious disease. Patient is maintained on Baricitinib along with IV dexamethasone, Lovenox, vitamin and zinc supplements and will continue. Patient is using incentive spirometer and has been getting up with some continued dyspnea on exertion. Patient's blood sugars slightly imp roved and will continue current regimen. Patient does not have a history of hypertension although blood pressures have been elevated and will add low-dose Norvasc and continue to monitor closely. 04/15/2021 Patient is evaluated today and titrating FI02 as tolerated. Patient currently on 11L HF. Pulmonary and ID following. Patient continues on covid supplements along with Baricitinib, lovenox, dexamethasone. Blood pressure continues to be elevated and was started on Norvasc and will increase to 10mg daily. Encouraged IS use and increased activity as tolerated. IV fluids discontinued. Review of systems: Constitutional: No reports of fatigue, fever, or chills Cardiovascular: No reports of chest pain or palpitations Respiratory: reports of shortness of breath and cough and bringing up some phlegm GI: No reports of nausea, vomiting, or diarrhea : No reports of dysuria or retention Neurovascular: No reports of weakness or numbness All medications have been reviewed Active Medications Acetaminophen (Acetaminophen Tab 500 Mg Tab) 1,000 mg PO Q6HR PRN PRN Reason: Fever>101 Acetaminophen (Acetaminophen Tab 325 Mg Tab) 650 mg PO Q6HR PRN PRN Reason: Mild Pain or Fever > 100.5 Last Admin: 04/14/21 19:36 Dose: 650 mg Documented by: Albuterol Sulfate (Albuterol Hfa Inhaler) 2 puff INHALATION RT-Q6H PRN PRN Reason: Shortness Of Breath Or Wheezing Last Admin: 04/11/21 14:58 Dose: 2 puff Documented by: Albuterol Sulfate (Albuterol Hfa Inhaler) 2 puff INHALATION RT-QID [facility] Last Admin: 04/15/21 20:51 Dose: 2 puff Documented by: Amlodipine Besylate (Amlodipine 5 Mg Tab) 10 mg PO DAILY [facility] Ascorbic Acid (Ascorbic Acid 500 Mg Tab) 1,000 mg PO DAILY [facility] Last Admin: 04/15/21 09:19 Dose: 1,000 mg Documented by: Baricitinib (Baricitinib 2 Mg Tablet) 4 mg PO Q24H [facility] Stop: 04/26/21 14:01 Last Admin: 04/15/21 15:35 Dose: 4 mg Documented by: Cholecalciferol (Cholecalciferol 125 Mcg (5000 Iu) Tablet) 125 mcg PO DAILY [facility] Last Admin: 04/15/21 09:19 Dose: 125 mcg Documented by: Dexamethasone Sodium Phosphate (Dexamethasone Sod Phosphate 10 Mg/Ml 1 Ml Vial) 6 mg IVP DAILY [facility] Last Admin: 04/15/21 09:17 Dose: 6 mg Documented by: Enoxaparin Sodium (Enoxaparin 40 Mg/0.4 Ml Syringe) 40 mg SQ DAILY [facility] Last Admin: 04/15/21 09:17 Dose: 40 mg Documented by: Guaifenesin (Guaifenesin Syrup 100mg/5ml 200 Mg/10 Ml Cup) 200 mg PO Q6HR PRN PRN Reason: Cough Last Admin: 04/12/21 22:03 Dose: 200 mg Documented by: Hydralazine HCl (Hydralazine Hcl 25 Mg Tab) 25 mg PO QID PRN PRN Reason: Blood Pressure - High Last Admin: 04/15/21 17:27 Dose: 25 mg Documented by: Ibuprofen (Ibuprofen 400 Mg Tab) 400 mg PO Q6HR PRN PRN Reason: Mild Pain or Fever > 100.5 Insulin Aspart (Insulin Aspart (Novolog) 100 Unit/Ml Vial) 0 unit SQ ACHS [facility]; Protocol Last Admin: 04/15/21 20:58 Dose: 9 unit Documented by: Insulin Aspart (Insulin Aspart (Novolog) 100 Unit/Ml Vial) 5 unit SQ AC-TID [facility] Last Admin: 04/15/21 17:27 Dose: 5 unit Documented by: Insulin Detemir (Insulin Detemir (Levemir) 100 Unit/Ml Syr) 40 unit SQ DAILY@0700 [facility] Last Admin: 04/15/21 09:18 Dose: 40 unit Documented by: Levothyroxine Sodium (Levothyroxine 75 Mcg Tab) 150 mcg PO DAILY@0630 [facility] Last Admin: 04/15/21 05:37 Dose: 150 mcg Documented by: Naloxone HCl (Naloxone 0.4 Mg/Ml 1 Ml Vial) 0.2 mg IV Q2M PRN PRN Reason: Opioid Reversal Zinc Sulfate (Zinc Sulfate 220 Mg Cap) 220 mg PO DAILY [facility] Last Admin: 04/15/21 09:17 Dose: 220 mg Documented by: Physical exam: Gen: This is a 45-year-old female awake, alert and oriented 3, well-developed, well-nourished, morbidly obese. HEENT: Head is atraumatic, normocephalic. Pupils equal, round. Sclerae is anicteric. NECK: Supple. No JVD. No lymphadenopathy. No thyromegaly. LUNGS: diminished breath sounds bilaterally. Scattered rhonchi. improved air entry bilaterally. No intercostal retractions. HEART: Regular rate and rhythm. No murmur. ABDOMEN: Soft. obese. Bowel sounds are present. No masses. No tenderness. EXTREMITIES: No pedal edema. No calf tenderness. NEUROLOGICAL: Patient is awake, alert and oriented x3. Cranial nerves 2 through 12 are grossly intact. Assessment: Acute COVID-19 infection with acute COVID-19 bilateral interstitial pneumonia with acute hypoxic respiratory failure Lymphopenia Hyponatremia, improved Hypertension Elevated random glucose, diabetes mellitus type 2 new onset, HbA1c is 10.6 Increased AST, ALT secondary to COVID-19 Elevated LDH Elevated inflammatory markers of COVID-19 hypothyroid Morbid obesity Full code Plan: Recommended continue with current medications, management, and symptomatic treatment. Patient continues with having shortness of breath with exertion although no worsening. . Patient being followed by pulmonary and ID and maintained on Baricitinib and continue with lovenox, dexamethasone, vitamin and zinc supplements. Patient currently on 11L HF and titrating down as tolerated. Continue incentive spirometer encouraged the patient to use at least 10 times every hour while awake. Encouraged increased activity as tolerated as well. Discussed nursing staff about weaning FiO2 as tolerated and will continue to monitor closely. Blood sugars slightly improved and will continue current medication regimen. Blood pressure continues to be elevated and will increase Norvasc and monitor closely. Repeat am labs and inflammatory markers ordered. Objective - Vital Signs Vital signs: Vital Signs Temp 98.1 F 04/15/21 06:07 Pulse 73 04/15/21 06:07 Resp 18 04/15/21 06:07 BP 164/95 04/15/21 06:07 Pulse Ox 97 04/15/21 07:52 Intake & Output 04/14/21 04/15/21 04/15/21 18:59 06:59 18:59 Intake Total 236 480 Output Total 300 Balance 236 180 Intake: Oral 236 480 Output: Urine 300 Other: Voiding Method Toilet Toilet Bedside Commode Bedside Commode # Voids 1 - Labs CBC & Chem 7: 04/15/21 05:15 04/15/21 05:15 Labs: Abnormal Lab Results - Last 24 Hours (Table) 04/13/21 04/14/21 04/14/21 Range/Units 13:22 05:25 11:46 POC Glucose (mg/dL) 206 H (75-99) mg/dL Lactate Dehydrogenase 381 H (120-246) U/L C-Reactive Protein 5.90 H (0.00-0.80) mg/dL Coronavirus (PCR) Detected A (Not Detected) 04/14/21 04/14/21 04/15/21 Range/Units 16:40 20:13 06:54 POC Glucose (mg/dL) 330 H 278 H 126 H (75-99) mg/dL Lactate Dehydrogenase (120-246) U/L C-Reactive Protein (0.00-0.80) mg/dL Coronavirus (PCR) (Not Detected)
[2021-04-16] MEDS: hydrALAZINE HCL 25 MG TAB PO PRN ×2 (05:39→17:13)
[2021-04-16] MEDS: LEVOTHYROXINE 75 MCG TAB PO SCH (05:39)
[2021-04-16] MEDS: ALBUTEROL HFA INHALER INHALATION SCH ×4 (07:55→20:31)
[2021-04-16 08:01] LABS: Glucose,Whole Blood 124 mg/dL (75-99)
[2021-04-16] MEDS: INSULIN ASPART (NovoLOG) 100 UNIT/ML VIAL SQ SCH ×7 (08:58→20:49)
[2021-04-16] MEDS: ASCORBIC ACID 500 MG TAB PO SCH (09:08)
[2021-04-16] MEDS: ENOXAPARIN 40 MG/0.4 ML SYRINGE SQ SCH (09:09)
[2021-04-16] MEDS: amLODIPine 10 MG TAB PO SCH (09:09)
[2021-04-16] MEDS: CHOLECALCIFEROL 125 MCG (5000 IU) TABLET PO SCH (09:09)
[2021-04-16] MEDS: DEXAMETHASONE SOD PHOSPHATE 10 MG/ML 1 ML VIAL IVP SCH (09:09)
[2021-04-16] MEDS: ZINC SULFATE 220 MG CAP PO SCH (09:09)
[2021-04-16] MEDS: INSULIN DETEMIR (LEVEMIR) 100 UNIT/ML SYR SQ SCH (09:18)
[2021-04-16 11:40] LABS: Glucose,Whole Blood 191 mg/dL (75-99)
[2021-04-16 12:10] LABS: Basophils # (A) 0.2 k/uL (0-0.2); Basophils % (A) 2 %; Eosinophils % (A) 0 %; HCT 35.5 % (34.0-46.0); HGB 11.1 gm/dL (11.4-16.0); Hypochromasia Marked; Lymphocytes # (A) 1.6 k/uL (1.0-4.8); Lymphocytes % (A) 15 %; MCH 30.7 pg (25.0-35.0); MCHC 31.4 g/dL (31.0-37.0); Mean Platelet Volume 9.7; Monocytes # (A) 0.6 k/uL (0-1.0); Monocytes % (A) 5 %; Neutrophils # (A) 8.3 k/uL (1.3-7.7); Neutrophils % (A) 77 %; Platelet Count 124 k/uL (150-450); RBC 3.63 m/uL (3.80-5.40); RDW 14.6 % (11.5-15.5); WBC 10.8 k/uL (3.8-10.6)
[2021-04-16 12:14] LABS: MCV 97.7 fL (80.0-100.0)
[2021-04-16 12:20] LABS: ALT 104 U/L (4-34); African American GFR (CKD) >90 (>60 ml/min/1.73 sqM); Albumin/Globulin Ratio 0.9; Anion Gap 10 mmol/L; Blood Urea Nitrogen 29 mg/dL (7-17); C Reactive Protein 2.1 mg/dL (<1.0); Calcium 9.1 mg/dL (8.4-10.2); Carbon Dioxide 24 mmol/L (22-30); Chloride 103 mmol/L (98-107); Globulin 3.9 g/dL; Glucose 164 mg/dL (74-99); Non-African American GFR(CKD) >90 (>60 ml/min/1.73 sqM); Sodium 137 mmol/L (137-145)
[2021-04-16 12:31] LABS: Albumin 3.6 g/dL (3.5-5.0); Potassium 5.1 mmol/L (3.5-5.1); Total Bilirubin 1.3 mg/dL (0.2-1.3); Total Protein 7.5 g/dL (6.3-8.2)
[2021-04-16 12:32] LABS: AST 161 U/L (14-36); Alkaline Phosphatase 71 U/L (38-126); LDH 1884 U/L (313-618)
--- NOTE | 2021-04-16 12:40 | P.PN ---
Subjective Progress Note Date: 04/16/21 04/16/2021, the patient is being seen for a COVID 19 related pneumonia and she is in a follow-up. She is currently improved and she is down to 9 L of oxygen by nasal cannula maintain a saturation of 92%. She is feeling better. She is on accommodation of Decadron and benefits of this. The LDH level is currently at 1884 and the CRP level is at 2.1. The white cell count currently is at 10.8 with hemoglobin of 11.1. No fever. Hemodynamically stable. Tolerating diet. No altered mentation. She remains on Decadron 6 mg by mouth daily. She is also on Lovenox 40 mg by mouth subcu on a daily basis. Her d-dimer is at 0.98. Objective - Vital Signs Vital signs: Vital Signs Temp 97.5 F L 04/16/21 10:38 Pulse 68 04/16/21 10:38 Resp 16 04/16/21 10:38 BP 151/77 04/16/21 10:38 Pulse Ox 92 L 04/16/21 10:38 Intake & Output 04/15/21 04/16/21 04/16/21 18:59 06:59 18:59 Other: Voiding Method Toilet Toilet # Voids 4 - Exam No acute distress, oriented 3. Currently, the patient's on 9 L nasal cannula. Saturations are in the low 90s. HEENT examination is grossly unremarkable. Neck supple. Full range of motion. No adenopathy thyromegaly or neck vein distention. Cardiovascular examination reveals regular rhythm rate. S1-S2 normal. No S3 or S4. No discernible murmur noted. Heart rate 93 bpm. Lungs reveal diffuse bilateral rhonchi. Breath sounds equal. No wheezes. No crackles. Abdomen soft bowel sounds are heard. No masses or tenderness. Extremities are intact. No cyanosis clubbing or edema. Skin is without rash or lesion. Neurologic examination is brief but nonfocal. - Labs CBC & Chem 7: 04/16/21 11:10 04/16/21 11:10 Labs: Abnormal Lab Results - Last 24 Hours (Table) 04/15/21 04/15/21 04/15/21 Range/Units 05:15 16:42 20:30 WBC (3.8-10.6) k/uL RBC 3.99 L (4.10-5.20) X 10*6/uL Hgb 11.1 L (12.0-15.0) g/dL MCHC 29.3 L (32.0-37.0) g/dL Plt Count (150-450) k/uL Absolute Nucleated RBC 0.02 H (0.00-0.00) X 10*3/uL Metamyelocytes % 1 H (0-0) % Neutrophils # (1.3-7.7) k/uL Eosinophils # (Manual) 0 L (0.04-0.35) X 10*3/uL NRBC/100 WBC Diff 0.2 H (0.0-0.0) /100 WBCS D-Dimer (<0.60) mg/L FEU BUN (7-17) mg/dL Glucose (74-99) mg/dL POC Glucose (mg/dL) 308 H 334 H (75-99) mg/dL AST (14-36) U/L ALT (4-34) U/L Lactate Dehydrogenase (313-618) U/L C-Reactive Protein (<1.0) mg/dL 04/16/21 04/16/21 04/16/21 Range/Units 07:59 11:10 11:10 WBC 10.8 H (3.8-10.6) k/uL RBC 3.63 L (4.10-5.20) X 10*6/uL Hgb 11.1 L (12.0-15.0) g/dL MCHC (32.0-37.0) g/dL Plt Count 124 L (150-450) k/uL Absolute Nucleated RBC (0.00-0.00) X 10*3/uL Metamyelocytes % (0-0) % Neutrophils # 8.3 H (1.3-7.7) k/uL Eosinophils # (Manual) (0.04-0.35) X 10*3/uL NRBC/100 WBC Diff (0.0-0.0) /100 WBCS D-Dimer (<0.60) mg/L FEU BUN 29 H (7-17) mg/dL Glucose 164 H (74-99) mg/dL POC Glucose (mg/dL) 124 H (75-99) mg/dL AST 161 H (14-36) U/L ALT 104 H (4-34) U/L Lactate Dehydrogenase 1884 H (313-618) U/L C-Reactive Protein 2.1 H (<1.0) mg/dL 04/16/21 04/16/21 Range/Units 11:10 11:38 WBC (3.8-10.6) k/uL RBC (4.10-5.20) X 10*6/uL Hgb (12.0-15.0) g/dL MCHC (32.0-37.0) g/dL Plt Count (150-450) k/uL Absolute Nucleated RBC (0.00-0.00) X 10*3/uL Metamyelocytes % (0-0) % Neutrophils # (1.3-7.7) k/uL Eosinophils # (Manual) (0.04-0.35) X 10*3/uL NRBC/100 WBC Diff (0.0-0.0) /100 WBCS D-Dimer 0.98 H (<0.60) mg/L FEU BUN (7-17) mg/dL Glucose (74-99) mg/dL POC Glucose (mg/dL) 191 H (75-99) mg/dL AST (14-36) U/L ALT (4-34) U/L Lactate Dehydrogenase (313-618) U/L C-Reactive Protein (<1.0) mg/dL Assessment and Plan Plan: 1 Acute hypoxemic respiratory failure secondary to COVID-19 pneumonia. The patient was vaccinated 2 with Moderna in August 2020. Outside the window for Remdesivir. Clinically improving currently on 9 L 2 Elevated inflammatory markers secondary to above 3 Mild transaminitis secondary to above 4 Obesity with a BMI of 60 5 Hypothyroidism 6 Hypertension 7 diabetes mellitus with steroid-induced hyperglycemia. The patient is a new onset diabetes with HbA1c above 10 Plan Clinically improving currently on 9 L by nasal cannula Continue Decadron Continue Baricitinib per protocol Inflammatory markers are still elevated including LDH. D-dimer is low. Keep Levemir insulin for blood sugar control currently on 40 units along with that she is on a sliding scale coverage. Continue Lovenox for DVT prophylaxis 40 mg subcu We'll make further recommendations based on her progress.
[2021-04-16] MEDS: BARICITINIB 2 MG TABLET PO SCH (14:48)
--- NOTE | 2021-04-16 16:18 | PN ---
PROGRESS NOTE DATE OF SERVICE: 04/16/2021 REASON FOR FOLLOWUP: COVID-19 pneumonia. INTERVAL HISTORY: The patient is afebrile. The patient is breathing comfortably. The patient is down to 7 L nasal cannula. The patient denies having any chest pain or worsening cough or sputum production. No abdominal pain or diarrhea. PHYSICAL EXAMINATION: Blood pressure 170/100 with a pulse of 89, temperature 97.7. She is 92% on 7 L nasal cannula. General description is a middle-aged female up in the chair in no distress. Respiratory system: Unlabored breathing, decreased intensity of breath sounds. No wheeze. Heart S1, S2. Regular rate and rhythm. Abdomen soft, no tenderness. Extremities: No edema of the feet. LABS: Hemoglobin 11.1, white count 10.8, creatinine 0.69. DIAGNOSTIC IMPRESSION AND PLAN: Patient with acute COVID-19 pneumonia with acute respiratory failure in this patient who seems to have shown some clinical improvement, requiring less supplemental oxygen. Patient to continue with baricitinib, dexamethasone, Lovenox, zinc and ascorbic acid along with respiratory support and monitor clinical course closely. MMODL / IJN: [id number] /
[2021-04-16 16:37] LABS: Glucose,Whole Blood 258 mg/dL (75-99)
[2021-04-16 20:32] LABS: Glucose,Whole Blood 258 mg/dL (75-99)
--- NOTE | 2021-04-17 00:11 | P.PN ---
Subjective Progress Note Date: 04/16/21 This Is a 45-year-old female who was recently admitted with shortness of breath and cough that had been ongoing since last Tuesday and being closely monitored. Patient was found to be positive for bilateral acute COVID-19 pneumonia. Pulmonary and infectious disease have been consulted and following. Patient did receive 2 doses of Mederna vaccine earlier this year. Patient denies any recent sick contacts states no one in the home is sick. Patient denies any chest pain or palpitations. Patient is afebrile. Patient is currently maintained on vitamin and zinc supplements, IV dexamethasone, and lovenox and will continue. Patient blood sugars have been elevated and ordered Hba1c. Will continue sliding scale and add long acting insulin as well. 04/13/2021 Patient is seen in follow up today and now requiring 15L HF via NC and more dyspneic with exertion. Patient continues to remove her NC as the constant air flow has been causing irritation and a bloody nose. Respiratory added humidific ation. Patient being followed by pulmonary and ID and being started on Baricitinib and will continue lovenox, dexamethasone , vitamin and zinc supplements. Encouraged increased activity as tolerated and will add incentive spirometer. Follow up repeat am labs. Chest xray shows stable infiltrates. 04/14/2021 She is seen this morning currently on 15 L high flow and being closely monitored by pulmonary along with infectious disease. Patient is maintained on Baricitinib along with IV dexamethasone, Lovenox, vitamin and zinc supplements and will continue. Patient is using incentive spirometer and has been getting up with some continued dyspnea on exertion. Patient's blood sugars slightly imp roved and will continue current regimen. Patient does not have a history of hypertension although blood pressures have been elevated and will add low-dose Norvasc and continue to monitor closely. 04/15/2021 Patient is evaluated today and titrating FI02 as tolerated. Patient currently on 11L HF. Pulmonary and ID following. Patient continues on covid supplements along with Baricitinib, lovenox, dexamethasone. Blood pressure continues to be elevated and was started on Norvasc and will increase to 10mg daily. Encouraged IS use and increased activity as tolerated. IV fluids discontinued. 04/16/2021 Patient seen in follow up today and continues to wean FI02 as tolerated. Pulmonary and infectious disease following and continued on covid medications along with lovenox and baricitinib. Oxygen currently at 9LHF and continues to wean. Using incentive spirometer and encouraged increased activity. Patient tolerating diet and maintained on sliding scale, pre-meal and long acting and will continue. Blood pressure elevated on norvasc. Has hydralazine as needed as well. Review of systems: Constitutional: No reports of fatigue, fever, or chills Cardiovascular: No reports of chest pain or palpitations Respiratory: reports of shortness of breath and cough and bringing up some phlegm, and feels breathing is improving GI: No reports of nausea, vomiting, or diarrhea : No reports of dysuria or retention Neurovascular: No reports of weakness or numbness All medications have been reviewed Active Medications Acetaminophen (Acetaminophen Tab 500 Mg Tab) 1,000 mg PO Q6HR PRN PRN Reason: Fever>101 Acetaminophen (Acetaminophen Tab 325 Mg Tab) 650 mg PO Q6HR PRN PRN Reason: Mild Pain or Fever > 100.5 Last Admin: 04/14/21 19:36 Dose: 650 mg Documented by: Albuterol Sulfate (Albuterol Hfa Inhaler) 2 puff INHALATION RT-Q6H PRN PRN Reason: Shortness Of Breath Or Wheezing Last Admin: 04/11/21 14:58 Dose: 2 puff Documented by: Albuterol Sulfate (Albuterol Hfa Inhaler) 2 puff INHALATION RT-QID [facility] Last Admin: 04/16/21 20:31 Dose: 2 puff Documented by: Amlodipine Besylate (Amlodipine 10 Mg Tab) 10 mg PO DAILY [facility] Last Admin: 04/16/21 09:09 Dose: 10 mg Documented by: Ascorbic Acid (Ascorbic Acid 500 Mg Tab) 1,000 mg PO DAILY [facility] Last Admin: 04/16/21 09:08 Dose: 1,000 mg Documented by: Baricitinib (Baricitinib 2 Mg Tablet) 4 mg PO Q24H [facility] Stop: 04/26/21 14:01 Last Admin: 04/16/21 14:48 Dose: 4 mg Documented by: Cholecalciferol (Cholecalciferol 125 Mcg (5000 Iu) Tablet) 125 mcg PO DAILY [facility] Last Admin: 04/16/21 09:09 Dose: 125 mcg Documented by: Dexamethasone Sodium Phosphate (Dexamethasone Sod Phosphate 10 Mg/Ml 1 Ml Vial) 6 mg IVP DAILY [facility] Last Admin: 04/16/21 09:09 Dose: 6 mg Documented by: Enoxaparin Sodium (Enoxaparin 40 Mg/0.4 Ml Syringe) 40 mg SQ DAILY [facility] Last Admin: 04/16/21 09:09 Dose: 40 mg Documented by: Guaifenesin (Guaifenesin Syrup 100mg/5ml 200 Mg/10 Ml Cup) 200 mg PO Q6HR PRN PRN Reason: Cough Last Admin: 04/12/21 22:03 Dose: 200 mg Documented by: Hydralazine HCl (Hydralazine Hcl 25 Mg Tab) 25 mg PO QID PRN PRN Reason: Blood Pressure - High Last Admin: 04/16/21 17:13 Dose: 25 mg Documented by: Ibuprofen (Ibuprofen 400 Mg Tab) 400 mg PO Q6HR PRN PRN Reason: Mild Pain or Fever > 100.5 Insulin Aspart (Insulin Aspart (Novolog) 100 Unit/Ml Vial) 0 unit SQ ACHS [facility]; Protocol Last Admin: 04/16/21 20:49 Dose: 6 unit Documented by: Insulin Aspart (Insulin Aspart (Novolog) 100 Unit/Ml Vial) 5 unit SQ AC-TID [facility] Last Admin: 04/16/21 17:13 Dose: 5 unit Documented by: Insulin Detemir (Insulin Detemir (Levemir) 100 Unit/Ml Syr) 40 unit SQ DAILY@0700 [facility] Last Admin: 04/16/21 09:18 Dose: 40 unit Documented by: Levothyroxine Sodium (Levothyroxine 75 Mcg Tab) 150 mcg PO DAILY@0630 [facility] Last Admin: 04/16/21 05:39 Dose: 150 mcg Documented by: Naloxone HCl (Naloxone 0.4 Mg/Ml 1 Ml Vial) 0.2 mg IV Q2M PRN PRN Reason: Opioid Reversal Zinc Sulfate (Zinc Sulfate 220 Mg Cap) 220 mg PO DAILY [facility] Last Admin: 04/16/21 09:09 Dose: 220 mg Documented by: Physical exam: Gen: This is a 45-year-old female awake, alert and oriented 3, well-developed, well-nourished, morbidly obese. HEENT: Head is atraumatic, normocephalic. Pupils equal, round. Sclerae is anicteric. NECK: Supple. No JVD. No lymphadenopathy. No thyromegaly. LUNGS: diminished breath sounds bilaterally. Scattered rhonchi. improved air entry bilaterally. No intercostal retractions. HEART: Regular rate and rhythm. No murmur. ABDOMEN: Soft. obese. Bowel sounds are present. No masses. No tenderness. EXTREMITIES: No pedal edema. No calf tenderness. NEUROLOGICAL: Patient is awake, alert and oriented x3. Cranial nerves 2 through 12 are grossly intact. Assessment: Acute COVID-19 infection with acute COVID-19 bilateral interstitial pneumonia with acute hypoxic respiratory failure Lymphopenia Hyponatremia, improved Hypertension Elevated random glucose, diabetes mellitus type 2 new onset, HbA1c is 10.6 Increased AST, ALT secondary to COVID-19 Elevated LDH Elevated inflammatory markers of COVID-19 hypothyroidism Morbid obesity with a BMI of 60.4 DVT prophylaxis: lovenox GI prophylaxis Full code Plan: Recommend to continue with current medications, management, and symptomatic treatment. Patient shortness of breath with exertion appears to be improving per patient and weaning as tolerated. Currently on 7L HF now. Patient being followed by pulmonary and ID and maintained on Baricitinib and continue with lovenox, dexamethasone, vitamin and zinc supplements. Continue to wean FI02 as tolerated. Continue incentive spirometer encouraged the patient to use at least 10 times every hour while awake. Encouraged increased activity as tolerated as well. Blood sugars slightly improved and will continue current medication regimen. Blood pressure continues to be elevated and will increase Norvasc and have hydralazine as needed and monitor closely. Repeat am labs and inflammatory markers ordered along with follow up chest xray. Will discuss with case manageme nt about diabetic needs and was given a glucometer along with insulin coverage and home oxygen needs. Objective - Vital Signs Vital signs: Vital Signs Temp 98.5 F 04/16/21 05:51 Pulse 55 L 04/16/21 05:51 Resp 17 04/16/21 05:51 BP 166/79 04/16/21 05:51 Pulse Ox 94 L 04/16/21 05:51 Intake & Output 04/15/21 04/16/21 04/16/21 18:59 06:59 18:59 Other: Voiding Method Toilet # Voids 4 - Labs CBC & Chem 7: 04/16/21 11:10 04/16/21 11:10 Labs: Abnormal Lab Results - Last 24 Hours (Table) 04/15/21 04/15/21 04/15/21 Range/Units 05:15 05:15 11:15 RBC 3.99 L (4.10-5.20) X 10*6/uL Hgb 11.1 L (12.0-15.0) g/dL MCHC 29.3 L (32.0-37.0) g/dL Absolute Nucleated RBC 0.02 H (0.00-0.00) X 10*3/uL Metamyelocytes % 1 H (0-0) % Eosinophils # (Manual) 0 L (0.04-0.35) X 10*3/uL NRBC/100 WBC Diff 0.2 H (0.0-0.0) /100 WBCS BUN/Creatinine Ratio 28.40 H (12.00-20.00) Ratio Glucose 135 H (70-110) mg/dL POC Glucose (mg/dL) 190 H (75-99) mg/dL AST 98 H (13-35) U/L ALT 66 H (8-44) U/L Albumin 3.4 L (3.8-4.9) g/dL Globulin 3.4 H (1.6-3.3) g/dL Albumin/Globulin Ratio 1.01 L (1.60-3.17) g/dL 04/15/21 04/15/21 04/16/21 Range/Units 16:42 20:30 07:59 RBC (4.10-5.20) X 10*6/uL Hgb (12.0-15.0) g/dL MCHC (32.0-37.0) g/dL Absolute Nucleated RBC (0.00-0.00) X 10*3/uL Metamyelocytes % (0-0) % Eosinophils # (Manual) (0.04-0.35) X 10*3/uL NRBC/100 WBC Diff (0.0-0.0) /100 WBCS BUN/Creatinine Ratio (12.00-20.00) Ratio Glucose (70-110) mg/dL POC Glucose (mg/dL) 308 H 334 H 124 H (75-99) mg/dL AST (13-35) U/L ALT (8-44) U/L Albumin (3.8-4.9) g/dL Globulin (1.6-3.3) g/dL Albumin/Globulin Ratio (1.60-3.17) g/dL
[2021-04-17] MEDS: ACETAMINOPHEN TAB 325 MG TAB PO PRN (01:32)
[2021-04-17] MEDS: LEVOTHYROXINE 75 MCG TAB PO SCH (05:50)
[2021-04-17 07:07] LABS: Glucose,Whole Blood 153 mg/dL (75-99)
[2021-04-17] MEDS: ALBUTEROL HFA INHALER INHALATION SCH ×2 (08:08→11:57)
[2021-04-17 08:52] LABS: ALT 95 U/L (4-34); African American GFR (CKD) >90 (>60 ml/min/1.73 sqM); Albumin 3.6 g/dL (3.5-5.0); Anion Gap 8 mmol/L; Blood Urea Nitrogen 29 mg/dL (7-17); Calcium 8.9 mg/dL (8.4-10.2); Carbon Dioxide 26 mmol/L (22-30); Chloride 102 mmol/L (98-107); Globulin 3.6 g/dL; Glucose 158 mg/dL (74-99); Non-African American GFR(CKD) >90 (>60 ml/min/1.73 sqM); Sodium 136 mmol/L (137-145); Total Bilirubin 1.1 mg/dL (0.2-1.3); Total Protein 7.2 g/dL (6.3-8.2)
[2021-04-17] MEDS: DEXAMETHASONE SOD PHOSPHATE 10 MG/ML 1 ML VIAL IVP SCH (09:12)
[2021-04-17] MEDS: ZINC SULFATE 220 MG CAP PO SCH (09:12)
[2021-04-17] MEDS: INSULIN DETEMIR (LEVEMIR) 100 UNIT/ML SYR SQ SCH (09:12)
[2021-04-17] MEDS: ENOXAPARIN 40 MG/0.4 ML SYRINGE SQ SCH (09:13)
[2021-04-17] MEDS: ASCORBIC ACID 500 MG TAB PO SCH (09:13)
[2021-04-17] MEDS: amLODIPine 10 MG TAB PO SCH (09:13)
[2021-04-17] MEDS: INSULIN ASPART (NovoLOG) 100 UNIT/ML VIAL SQ SCH ×4 (09:13→13:02)
[2021-04-17 09:14] LABS: Potassium 4.5 mmol/L (3.5-5.1)
[2021-04-17] MEDS: CHOLECALCIFEROL 125 MCG (5000 IU) TABLET PO SCH (09:14)
[2021-04-17 09:15] LABS: AST 94 U/L (14-36); Alkaline Phosphatase 67 U/L (38-126)
--- NOTE | 2021-04-17 09:30 | XR ---
EXAMINATION TYPE: XR chest 1V portable DATE OF EXAM: 04/17/2021 COMPARISON: 04/13/2021 HISTORY: Shortness of breath TECHNIQUE: Single frontal view of the chest is obtained. FINDINGS: Bilateral patchy areas of diffuse infiltrate. Heart size stable. No pneumothorax or pleura l effusion. Osseous structures are stable.. IMPRESSION: Bilateral diffuse infiltrate stable.
[2021-04-17 10:34] VITALS: BP 152/84; PULSE 62; RESP 19; TEMP 98.2
[2021-04-17 11:54] LABS: Glucose,Whole Blood 187 mg/dL (75-99)
[2021-04-17] MEDS: BARICITINIB 2 MG TABLET PO SCH (13:01)
--- NOTE | 2021-04-17 13:23 | P.PN ---
Subjective Progress Note Date: 04/17/21 Principal diagnosis: dyspnea On 04/2021 patient seen in follow-up on medical surgical floor, she is breathing comfortably, overall she is although she still requiring high flow oxygen, she is on 11 L O2, with a pulse ox of 80-95%, breathing comfortably, lung sounds are positive for coarse crackles, she's been afebrile, vital signs have been stable, she's had no acute events overnight. Today's labs have been reviewed, her white count is 9.2, hemoglobin is 11.1, platelet count is 260, electrolytes and renal profile are within normal limits, AST is 98, ALT is 66, alk phos is 79, pro calcitonin was negative at 0.25, patient remains on Decadron 6 mg daily, Lovenox 40 mg daily, she is on COVID-19 vitamins On 04/17/2021 patient seen in follow-up on medical surgical floor, she is awake and alert, in no acute distress, she continues to improve, breathing quite comfortably, she is sitting up in the chair, FiO2 has been weaned down to 2 L, and her pulse ox is 95%, patient did qualify for home oxygen and she does desaturate down to 88% with ambulation. Home oxygen has already been arranged. Breathing is nonlabored, comfortable, no cough, no chest discomfort, no fever or chills. His chest x-ray shows bilateral diffuse infiltrates, stable or slightly improved in appearance. Patient continues on Baricitinib, prophylactic Lovenox, Decadron. Today's labs have been reviewed, d-dimer 0.76, sodium is 136, serum electrolytes were within normal limits, B1 is 29 creatinine 0.69 LFTs are improving with AST down to 94, ALT of 95, alkaline phosphatase 67. Tolerating o ral intake, no nausea vomiting no diarrhea, no abdominal pain. Objective - Vital Signs Vital signs: Vital Signs Temp 98.2 F 04/17/21 08:00 Pulse 89 04/17/21 09:39 Resp 19 04/17/21 08:00 BP 152/84 04/17/21 08:00 Pulse Ox 92 L 04/17/21 09:39 Intake & Output 04/16/21 04/17/21 04/17/21 18:59 06:59 18:59 Intake Total 263 Balance 263 Intake: Oral 263 Other: Voiding Method Toilet Toilet # Voids 3 - Exam GENERAL EXAM: Alert, very pleasant, 45-year-old morbidly obese white female, on 2 L of oxygen, pulse ox of 88-95% comfortable in no apparent distress. HEAD: Normocephalic/atraumatic. EYES: Normal reaction of pupils, equal size. Conjunctiva pink, sclera white. NOSE: Clear with pink turbinates. THROAT: No erythema or exudates. NECK: No masses, no JVD, no thyroid enlargement, no adenopathy. CHEST: No chest wall deformity. Symmetrical expansion. LUNGS: Equal air entry with bilateral crackles CVS: Regular rate and rhythm, normal S1 and S2, no gallops, no murmurs, no rubs ABDOMEN: Soft, nontender. No hepatosplenomegaly, normal bowel sounds, no guarding or rigidity. EXTREMITIES: No clubbing, no edema, no cyanosis, 2+ pulses and upper and lower extremities. MUSCULOSKELETAL: Muscle strength and tone normal. SPINE: No scoliosis or deformity SKIN: No rashes CENTRAL NERVOUS SYSTEM: Alert and oriented -3. No focal deficits, tone is normal in all 4 extremities. PSYCHIATRIC: Alert and oriented -3. Appropriate affect. Intact judgment and insight. - Labs CBC & Chem 7: 04/16/21 11:10 04/17/21 08:02 Labs: Abnormal Lab Results - Last 24 Hours (Table) 04/16/21 04/16/21 04/17/21 Range/Units 16:35 20:30 07:06 D-Dimer (<0.60) mg/L FEU Sodium (137-145) mmol/L BUN (7-17) mg/dL Glucose (74-99) mg/dL POC Glucose (mg/dL) 258 H 258 H 153 H (75-99) mg/dL AST (14-36) U/L ALT (4-34) U/L 04/17/21 04/17/21 04/17/21 Range/Units 08:02 08:03 11:53 D-Dimer 0.76 H (<0.60) mg/L FEU Sodium 136 L (137-145) mmol/L BUN 29 H (7-17) mg/dL Glucose 158 H (74-99) mg/dL POC Glucose (mg/dL) 187 H (75-99) mg/dL AST 94 H (14-36) U/L ALT 95 H (4-34) U/L Assessment and Plan Plan: #1. Acute hypoxemic respiratory failure secondary to COVID-19 pneumonia. The patient was vaccinated 2 with Moderna in August 2020. Outside the window for Remdesivir. #2. Elevated inflammatory markers secondary to above #3. Mild transaminitis secondary to above #4. Obesity with a BMI of 60 #5. Hypothyroidism #6. Hypertension #7. Diabetes mellitus with steroid-induced hyperglycemia. The patient is a new onset diabetes with HbA1c above 10 Plan: Platelet continues to improve, FiO2 is currently down to 2 L Patient did qualify for home oxygen, she will be going home on 2 L of oxygen No acute events overnight, Increase activity as tolerated Stable for discharge home today, she can finish outpatient course of Decadron for a total of 10 days She can continue on COVID-19 multivitamins No need to continue Baricitinib Outpatient follow-up with Dr. Bhat in the office in 2 weeks I performed a history & physical examination of the patient and discussed their management with my nurse practitioner, Shanice Parker. I reviewed the nurse practitioner's note and agree with the documented findings and plan of care. Kristen ng sounds are positive for diffuse crackles throughout the lung truong. The findings and the impression was discussed with the patient. I attest to the documentation by the nurse practitioner. Time with Patient: Less than 30
[2021-04-17 15:18] LABS: C Reactive Protein 1.1 mg/dL (0.00-0.80)
--- NOTE | 2021-04-17 17:51 | PN ---
PROGRESS NOTE DATE OF SERVICE: 04/17/2021 REASON FOR FOLLOWUP: COVID-19 pneumonia. INTERVAL HISTORY: The patient is afebrile. The patient is currently breathing comfortably. The patient is on 2 L nasal cannula. The patient denies having any chest pain or shortness of breath. No worsening. No abdominal pain, no diarrhea. PHYSICAL EXAMINATION: Blood pressure 152/84 with a pulse of 52, temperature 98.2. She is 95% on 2 L nasal cannula. General description is a middle-aged female up in the chair in no distress. Respiratory system: Unlabored breathing, decreased intensity of breath sounds. No wheeze or crackle. Heart S1, S2. Regular rate and rhythm. Abdomen soft, no tenderness. LABS: BUN of 29 and creatinine 0.69. D-dimer 0.76. IMPRESSION/PLAN: Patient with acute COVID-19 pneumonia in this patient who has seem to shown overall clinical improvement. The patient being considered for discharge, finishing therapy with dexamethasone, Lovenox, zinc and ascorbic acid and close outpatient followup. Continue supportive care. MMODL / IJN: [id number] /
--- NOTE | 2021-04-18 11:42 | P.DS ---
Providers Date of admission: 04/11/21 13:39 Expected date of discharge: 04/17/21 Attending physician: Richa Valerio Consults: 04/11/21 13:10 Consult Physician Stat Consulting Provider: Kareem Sneed Consult Reason/Comments: COVID +, hypoxia Do you want consulting provider notified?: Yes 04/11/21 15:22 Consult Physician Routine Consulting Provider: Serafin Chavez Consult Reason/Comments: COVID, rEMDESIVIR? Do you want consulting provider notified?: Yes Primary care physician: Ronald Conley Hospital Course: Final diagnosis Acute COVID-19 infection with acute COVID-19 bilateral interstitial pneumonia with acute hypoxic respiratory failure Lymphopenia Hyponatremia, improved Hypertension Elevated random glucose, diabetes mellitus type 2 new onset, HbA1c is 10.6 Increased AST, ALT secondary to COVID-19 Elevated LDH Elevated inflammatory markers of COVID-19 hypothyroidism Morbid obesity with a BMI of 60.4 DVT prophylaxis: lovenox GI prophylaxis Full code Discharge disposition Patient is being discharged in a stable condition with guarded prognosis to home. Patient will follow-up with Dr. Cardenas in the outpatient setting upon discharge. Patient is to continue with vitamin and zinc supplements along with dexamethasone 4mg daily and lovenox daily for seven days on discharge. Patient will need follow up with endocrine and pulmonary outpatient. Patient will will require 02 via NC at 2L secondary to covid 19 in the outpatient setting. Total time taken is greater than 35 minutes. Hospital course This Is a 45-year-old female who was recently admitted with shortness of breath and cough that had been ongoing since last Tuesday and being closely monitored. Patient was found to be positive for bilateral acute COVID-19 pneumonia. Pulmonary and infectious disease have been consulted and following. Patient did receive 2 doses of Mederna vaccine earlier this year. Patient denies any recent sick contacts states no one in the home is sick. Patient denies any chest pain or palpitations. Patient is afebrile. Patient is currently maintained on vitamin and zinc supplements, IV dexamethasone, and lovenox and will continue. Patient blood sugars have been elevated and ordered Hba1c. Will continue sliding scale and add long acting insulin as well. 04/13/2021 Patient is seen in follow up today and now requiring 15L HF via NC and more dyspneic with exertion. Patient continues to remove her NC as the constant air flow has been causing irritation and a bloody nose. Respiratory added humidification. Patient being followed by pulmonary and ID and being started on Baricitinib and will continue lovenox, dexamethasone , vitamin and zinc supplements. Encouraged increased activity as tolerated and will add incentive spirometer. Follow up repeat am labs. Chest xray shows stable infiltrates. 04/14/2021 She is seen this morning currently on 15 L high flow and being closely monitored by pulmonary along with infectious disease. Patient is maintained on Baricitinib along with IV dexamethasone, Lovenox, vitamin and zinc supplements and will continue. Patient is using incentive spirometer and has been getting up with some continued dyspnea on exertion. Patient's blood sugars slightly improved and will continue current regimen. Patient does not have a history of hypertension although blood pressures have been elevated and will add low-dose Norvasc and continue to monitor closely. 04/15/2021 Patient is evaluated today and titrating FI02 as tolerated. Patient currently on 11L HF. Pulmonary and ID following. Patient continues on covid supplements along with Baricitinib, lovenox, dexamethasone. Blood pressure continues to be elevated and was started on Norvasc and will increase to 10mg daily. Encouraged IS use and increased activity as tolerated. IV fluids discontinued. 04/16/2021 Patient seen in follow up today and continues to wean FI02 as tolerated. Pulmonary and infectious disease following and continued on covid medications al jaimie with lovenox and baricitinib. Oxygen currently at 9LHF and continues to wean. Using incentive spirometer and encouraged increased activity. Patient tolerating diet and maintained on sliding scale, pre-meal and long acting and will continue. Blood pressure elevated on norvasc. Has hydralazine as needed as well. 04/17/2021 Patient is seen this morning and maintained on Baricitinib along with other covid supplements and steroids and has been maintaining oxygen above 90% on 2L via NC and 02 has been arranged for discharge. Patient has been evaluated by pulmonary and will continue on 5 days of dexamethasone on discharge. Patient will also be on lovenox for one week. Patient is new onset diabetes and will require insulin on discharge along with hypertensive medication Norvasc. Patient to follow up with endocrine and pulmonary in the outpatient setting. Patient has received glucometer and provided resources for diabetic supplies. Encouraged IS use and close outpatient follow up with pulmonary. Currently no reports of chest pain, palpitations or worsening shortness of breath. Patient is afebrile. No reports of nausea or vomiting and tolerating diet. Patient will be discharged today. Guarded prognosis. Physical exam: GENERAL: The patient is alert and oriented x3, Well developed, well nourished. Currently on 2 L NC HEENT: Pupils are round and equally reacting to light. EOMI. No scleral icterus. No conjunctival pallor. Normocephalic, atraumatic. No pharyngeal erythema. No thyromegaly. CARDIOVASCULAR: S1 and S2 present. No murmurs, rubs, or gallops. PULMONARY: Diminished breath sounds bilaterally with no wheezing or rhonchi noted ABDOMEN: Soft, obese, nontender, nondistended, normoactive bowel sounds. No palpable organomegaly. MUSCULOSKELETAL: No joint swelling or deformity. EXTREMITIES: No cyanosis, clubbing, or pedal edema. NEUROLOGICAL: Gross neurological examination did not reveal any focal deficits. SKIN: No rashes. Please refer to medication reconciliation sheet for a list of medications. Patient Condition at Discharge: Fair Plan - Discharge Summary Discharge Rx Participant: Yes New Discharge Prescriptions: New Insulin Detemir (Levemir) [Levemir] 40 unit SQ DAILY@0700 30 Days ml Enoxaparin [Lovenox] 40 mg SQ DAILY 7 Days #7 each Acetaminophen Tab [Tylenol] 650 mg PO Q6HR PRN tab PRN Reason: Mild Pain Or Fever > 100.5 Cholecalciferol [Vitamin D3 (125 Mcg = 5000 Iu)] 125 mcg PO DAILY 30 Days #30 tablet Dexamethasone 6 mg PO DAILY 5 Days #5 tablet amLODIPine [Norvasc] 10 mg PO DAILY 30 Days #30 tab INSULIN ASPART (NovoLOG) [NovoLOG (formulary)] 5 unit SQ AC-TID 30 Days ml INSULIN ASPART (NovoLOG) [NovoLOG (formulary)] 6 unit SQ ACHS 30 Days ml Zinc Sulfate [Orazinc] 220 mg PO DAILY 30 Days #30 cap Albuterol Inhaler [Ventolin Hfa Inhaler] 2 puff INHALATION RT-QID 30 Days #1 gm Albuterol Inhaler [Ventolin Hfa Inhaler] 2 puff INHALATION RT-Q6H PRN gm PRN Reason: Shortness Of Breath Or Wheezing Ascorbic Acid [Vitamin C] 1,000 mg PO DAILY 30 Days #30 tab Continue Levothyroxine Sodium [Synthroid] 150 mcg PO DAILY Discharge Medication List Levothyroxine Sodium [Synthroid] 150 mcg PO DAILY 04/11/21 [History] Acetaminophen Tab [Tylenol] 650 mg PO Q6HR PRN tab 04/17/21 [Rx] Albuterol Inhaler [Ventolin Hfa Inhaler] 2 puff INHALATION RT-Q6H PRN gm 04/17/21 [Rx] Albuterol Inhaler [Ventolin Hfa Inhaler] 2 puff INHALATION RT-QID 30 Days #1 gm 04/17/21 [Rx] Ascorbic Acid [Vitamin C] 1,000 mg PO DAILY 30 Days #30 tab 04/17/21 [Rx] Cholecalciferol [Vitamin D3 (125 Mcg = 5000 Iu)] 125 mcg PO DAILY 30 Days #30 tablet 04/17/21 [Rx] Dexamethasone 6 mg PO DAILY 5 Days #5 tablet 04/17/21 [Rx] Enoxaparin [Lovenox] 40 mg SQ DAILY 7 Days #7 each 04/17/21 [Rx] INSULIN ASPART (NovoLOG) [NovoLOG (formulary)] 5 unit SQ AC-TID 30 Days ml 04/17/21 [Rx] INSULIN ASPART (NovoLOG) [NovoLOG (formulary)] 6 unit SQ ACHS 30 Days ml 04/17/21 [Rx] Insulin Detemir (Levemir) [Levemir] 40 unit SQ DAILY@0700 30 Days ml 04/17/21 [Rx] Zinc Sulfate [Orazinc] 220 mg PO DAILY 30 Days #30 cap 04/17/21 [Rx] amLODIPine [Norvasc] 10 mg PO DAILY 30 Days #30 tab 04/17/21 [Rx] Follow up Appointment(s)/Referral(s): Yael Cardenas MD [Primary Care Provider] - 05/04/21 9:20 am Prashanth Pedroza MD [REFERRING] - 1 Week [facility] [NON-STAFF] - As Needed (oxygen) Gabrielle Bhat MD [STAFF PHYSICIAN] - 2 Weeks Patient Instructions/Handouts: Coronavirus Disease 2019 (COVID-19) Activity/Diet/Wound Care/Special Instructions: Diabetic supplies ordered through [facility]: #[phone] Activity Limited to follow-up Follow-up with primary care provider discharge Follow-up pulmonary outpatient Continue taking medications as prescribed Continue monitoring blood sugars and keep a diary for primary care follow-up NovoLog sliding scale 0-150 equals 0 units 151-200 equals 2 units 201-250 equals 4 units 251-300 equals 6 units 301-350 equals 8 units 351-400 equals 10 units Please notify provider if blood sugar is 400 or above Continue consistent carb heart healthy diet Continue with incentive spirometer use Continue oxygen and monitor pulse ox readings and keep a diary for pulmonary follow-up Discharge Disposition: HOME SELF-CARE
--- NOTE | 2021-04-21 14:52 | CDI ---
Documentation Clarification Form Date: 04/21/2021 02:42:13 PM From: Clive Vanegas Phone: Admit Date: 04/11/2021 01:39:00 PM Patient Name: Isa Stevens Visit Number: [id number] Discharge Date: 04/17/2021 02:42:00 PM ATTENTION: The Clinical Documentation Specialists (CDI) and [facility] Coding Staff appreciate your assistance in clarifying documentation. Please respond to the clarification below the line at the bottom and electronically sign. The CDI & [facility] Coding staff will review the response and follow-up if needed. Please note: Queries are made part of the Legal Health Record. If you have any questions, please contact the author of this message via ITS. Dr. Jerson Merino Your patient has the documented symptom of SIRS in the ED notes. Additional clarification regarding the etiology/cause of this symptom is requested. Patient history/risk factors: COVID PNA Clinical Indicators: Radiology: PNA Labs: Vital Signs: ED: Temp 101, pulse 106, resp 22, WBC 5.6 Other Clinical Indicators: Treatment: IV abx and baricitnib Oxygen: Medication: Consults: ID for COVID PNA Other Treatment: Please provide additional clarification regarding the etiology/cause of the clinical indicators of sepsis: [ x ] Sepsis POA [ ] Sepsis not POA [ ] Other, please specify [ ] Unable to determine [ ] no associated diagnosis with these clinical signs [ ] SIRS only MTDD
== END 2021-04-17 14:42 | disposition home or self-care (01) | DRG 871 ==
LOC: EC 12:38 → 4SSUR 13:39
PROVIDERS: ADMIT Hospitalist; ATTEND Hospitalist
PROC: 3E0333Z Introduction of Anti-inflammatory into Peripheral Vein, Percutaneous Approach (ICD-10-PCS; 2021-04-11)
PROC: XW0DXM6 Introduction of Baricitinib into Mouth and Pharynx, External Approach, New Technology Group 6 (ICD-10-PCS; principal; 2021-04-13)
PROC: 5A0945A Assistance with Respiratory Ventilation, 24-96 Consecutive Hours, High Flow/Velocity Cannula (ICD-10-PCS; 2021-04-13)
PROC: 05HD33Z Insertion of Infusion Device into Right Cephalic Vein, Percutaneous Approach (ICD-10-PCS; 2021-04-16)
DX: A41.89 Other specified sepsis (principal); U07.1 COVID-19; J12.82 Pneumonia due to coronavirus disease 2019; J96.01 Acute respiratory failure with hypoxia; Z68.44 Body mass index [BMI] 60.0-69.9, adult; E87.1 Hypo-osmolality and hyponatremia; D72.810 Lymphocytopenia; E03.9 Hypothyroidism, unspecified; E66.01 Morbid (severe) obesity due to excess calories; I10 Essential (primary) hypertension; R04.0 Epistaxis; Z79.01 Long term (current) use of anticoagulants; Z79.4 Long term (current) use of insulin; Z79.52 Long term (current) use of systemic steroids; Z79.890 Hormone replacement therapy; Z90.49 Acquired absence of other specified parts of digestive tract; Z98.891 History of uterine scar from previous surgery; R74.01 Elevation of levels of liver transaminase levels; Z88.0 Allergy status to penicillin; E11.65 Type 2 diabetes mellitus with hyperglycemia; T38.0X5A Adverse effect of glucocorticoids and synthetic analogues, initial encounter
CPT/HCPCS: 36410; 36415; 71045; 76937; 80053; 82728; 83036; 83615; 83735; 84145; 85025; 85379; 85610; 85730; 86140; 93005; 94640; 94760; 96374; 99285

== ENCOUNTER 2021-12-07 07:50 | Inpatient (IN) | payer OTHER ==
[2021-12-07 09:00] LABS: Basophils # (A) 0.1 k/uL (0-0.2); Basophils % (A) 1 %; Eosinophils # (A) 0.2 k/uL (0-0.7); Eosinophils % (A) 3 %; HCT 44.3 % (34.0-46.0); HGB 13.6 gm/dL (11.4-16.0); Lymphocytes # (A) 2.3 k/uL (1.0-4.8); Lymphocytes % (A) 31 %; MCH 28.9 pg (25.0-35.0); MCHC 30.7 g/dL (31.0-37.0); MCV 93.8 fL (80.0-100.0); Mean Platelet Volume 7.2; Monocytes # (A) 0.3 k/uL (0-1.0); Monocytes % (A) 4 %; Neutrophils # (A) 4.6 k/uL (1.3-7.7); Neutrophils % (A) 59 %; Platelet Count 263 k/uL (150-450); RBC 4.72 m/uL (3.80-5.40); WBC 7.7 k/uL (3.8-10.6)
[2021-12-07 09:08] LABS: Partial Thromboplastin Time 24.3 sec (22.0-30.0); Prothrombin Time 10.6 sec (9.0-12.0)
[2021-12-07 09:11] LABS: ALT 28 U/L (4-34); AST 40 U/L (14-36); African American GFR (CKD) 72 (>60 ml/min/1.73 sqM); Albumin 4.6 g/dL (3.5-5.0); Alkaline Phosphatase 70 U/L (38-126); Anion Gap 8 mmol/L; Blood Urea Nitrogen 16 mg/dL (7-17); Calcium 9.7 mg/dL (8.4-10.2); Carbon Dioxide 30 mmol/L (22-30); Chloride 101 mmol/L (98-107); Glucose 210 mg/dL (74-99); Non-African American GFR(CKD) 63 (>60 ml/min/1.73 sqM); Potassium 4.5 mmol/L (3.5-5.1); Sodium 139 mmol/L (137-145); Total Bilirubin 1.8 mg/dL (0.2-1.3); Total Protein 8.3 g/dL (6.3-8.2)
--- NOTE | 2021-12-07 09:15 | CT ---
EXAMINATION TYPE: CT brain wo con DATE OF EXAM: 12/07/2021 COMPARISON: 06/25/2012 HISTORY: 46-year-old female Headache TECHNIQUE: Examination was done in axial plane without intravenous contrast. Coronal and sagittal r econstructions performed. CT DLP: 1114.4 mGycm Automated exposure control for dose reduction was used. FINDINGS: There is no evidence of acute intracranial hemorrhage, acute ischemic changes, mass, mass-effect, or extra-axial fluid collection. There is no effacement of cerebral sulci or basal subarachnoid cister ns. There is no hydrocephalus. There is no midline shift. Cardenas-white matter distinction is preserv ed. There is no empty sella. Mastoid air cells are somewhat hypoplastic but otherwise clear. Trace mucosal thickening anterior eth moid air cells and some mild mucosal thickening floors of the maxillary sinuses. Polyp or mucosal ret ention cyst measuring 1.2 cm for the right maxillary sinus. Orbits and globes appear intact. IMPRESSION: No acute intracranial abnormality seen.
--- NOTE | 2021-12-07 09:20 | XR ---
EXAMINATION TYPE: XR chest 2V DATE OF EXAM: 12/07/2021 COMPARISON: 04/17/2021 and 05/29/2021 HISTORY: 46-year-old female with weakness and dizziness TECHNIQUE: AP and lateral views FINDINGS: Large patient body habitus resulting in hazy densities and underpenetration. Heart appears borderline in size. Allowing for the hazy densities, difficult to exclude some early patchy peripheral left bas ilar opacity. No pleural effusion. IMPRESSION: Limited exam due to large body habitus and underpenetration. Hazy densities may relate to the overlyi ng soft tissue. Unable to exclude some early opacity at the periphery of the left base. Clinically co rrelate.
[2021-12-07 09:51] LABS: Appearance,Urine Cloudy (Clear); Bilirubin,Urine Negative (Negative); Blood,Urine Negative (Negative); Color,Urine Yellow; Glucose,Urine (UA) Negative (Negative); Ketones,Urine Negative (Negative); Leukocyte Esterase,Urine Trace (Negative); Mucus,Urine Rare /hpf; Nitrite,Urine Negative (Negative); Protein,Urine 2+ (Negative); RBC,Urine 1 /hpf (0-5); Specific Gravity,Urine 1.018 (1.001-1.035); Squamous Epithelial Cell,Urine 10 /hpf (0-4); Urobilinogen,Urine <2.0 mg/dL (<2.0); WBC,Urine 7 /hpf (0-5)
--- NOTE | 2021-12-07 10:37 | ED ---
General Adult HPI - General Chief complaint: Headache Stated complaint: Foggy,Headache Time Seen by Provider: 12/07/21 08:15 Source: patient Mode of arrival: ambulatory Limitations: no limitations - History of Present Illness Initial comments: 46-year-old female with past history of thyroid disorder, hypertension, diabetes presents emergency department for neuro symptoms. Patient feels "as if she is having a stroke". States for the past 4 weeks she has had progressive generalized weakness and dysarthria. Also admits to headache and pressure in he r left ear. She has had fatigue. Patient has not taken any of her medications in several months. States that insurance will not fill her prescriptions for her medications as her primary care office is under investigation. Cannot remember the last time she took her medications and also does not know what she takes. Admits to being insulin-dependent and has not taken any of her insulin. She denies history of stroke. No lateralizing weakness. Mild lower extremity swelling. No other alleviating, precipitating or modifying factors - Related Data Home Medications Medication Instructions Recorded Confirmed Albuterol Sulfate [Albuterol 2 puff PO RT-Q6H PRN 12/08/21 12/08/21 Sulfate Hfa] Cetirizine HCl 10 mg PO DAILY PRN 12/08/21 12/08/21 Naproxen [Naprosyn] 500 mg PO BID PRN 12/08/21 12/08/21 Previous Rx's Medication Instructions Recorded Atorvastatin [Lipitor] 80 mg PO HS #30 tab 12/09/21 Blood Sugar Diagnostic [Test 1 each AC-TID #90 strip 12/09/21 Strips] Insulin Aspart [NovoLOG Flexpen] 6 unit SQ AC-TID #2 each 12/09/21 Insulin Glargine,Hum.rec.anlog 50 unit SQ HS #5 each 12/09/21 [Lantus Solostar Pen] Levothyroxine Sodium [Synthroid] 176 mcg PO 0630 #30 tab 12/09/21 Metoprolol Succinate (ER) [Toprol 25 mg PO DAILY #30 tab 12/09/21 XL] Syr,Ndl,Insulin,1Ml-Sharps Bin 1 syr INJ DIRECTED #1 each 12/09/21 [Ultiguard Safepack 1Ml 31G 8Mm] Syringe-Needle,Insulin,0.5 ml 1 syr SQ DIRECTED #90 each 12/09/21 [Insulin Syringe 29G 1/2" 0.5ML] amLODIPine [Norvasc] 5 mg PO DAILY #30 tab 12/09/21 lisinopriL [Zestril] 5 mg PO DAILY #30 tab 12/09/21 Allergies Allergy/AdvReac Type Severity Reaction Status Date / Time Penicillins Allergy Rash/Hives Verified 12/07/21 07:58 Review of Systems ROS Statement: Those systems with pertinent positive or pertinent negative responses have been documented in the HPI. ROS Other: All systems not noted in ROS Statement are negative. Past Medical History Past Medical History: Thyroid Disorder Additional Past Medical History / Comment(s): obesity History of Any Multi-Drug Resistant Organisms: None Reported Past Surgical History: Section, Cholecystectomy Past Psychological History: No Psychological Hx Reported Smoking Status: Never smoker Past Alcohol Use History: None Reported Past Drug Use History: None Reported General Exam Limitations: no limitations General appearance: alert, in no apparent distress Head exam: Present: atraumatic, normocephalic, normal inspection Eye exam: Present: normal appearance, PERRL, EOMI. Absent: scleral icterus, conjunctival injection, periorbital swelling ENT exam: Present: normal exam, mucous membranes moist Neck exam: Present: normal inspection. Absent: tenderness, meningismus, lymp hadenopathy Respiratory exam: Present: normal lung sounds bilaterally. Absent: respiratory distress, wheezes, rales, rhonchi, stridor Cardiovascular Exam: Present: regular rate, normal rhythm, normal heart sounds. Absent: systolic murmur, diastolic murmur, rubs, gallop, clicks GI/Abdominal exam: Present: soft, normal bowel sounds. Absent: distended, tenderness, guarding, rebound, rigid Extremities exam: Present: normal inspection, full ROM, normal capillary refill. Absent: tenderness, pedal edema, joint swelling, calf tenderness Back exam: Present: normal inspection Neurological exam: Present: alert, oriented X3, CN II-XII intact, other (slow speech. intact sensation. finger to nose is symmetric) Psychiatric exam: Present: normal affect, normal mood Skin exam: Present: warm, dry, intact, normal color. Absent: rash Course Vital Signs 12/07/21 12/07/21 12/07/21 08:00 09:49 12:01 Temperature 98.1 F 98 F Pulse Rate 71 85 Respiratory 16 16 Rate Blood Pressure 185/114 140/92 148/95 O2 Sat by Pulse 97 Oximetry 12/07/21 12/07/21 12/07/21 13:27 16:32 20:00 Temperature 98 F Pulse Rate 75 70 Respiratory 18 16 16 Rate Blood Pressure 169/94 146/94 O2 Sat by Pulse 98 Oximetry EKG Findings - EKG Comments: EKG Findings:: EKG demonstrates sinus bradycardia with a rate of 54. HI interval 196. QRS 106. QTC of 397. No acute ST segment elevations or depressions Medical Decision Making - Medical Decision Making Upon arrival patient was placed into room 1. Her history and physical exam is performed. IV access was established laboratory studies were conducted. TSH is greater than 100. This is followed by reflex T4 which is 0.07. Patient is given 100 g of Synthroid through the IV. I called and spoke with Dr. sibley will admit the patient. Chest x-ray and CT the patient's brain were negative. Patient agreed to the treatment plan and is awaiting a bed on the floor - Lab Data Result diagrams: 12/08/21 04:35 12/08/21 04:35 Lab Results 12/07/21 12/07/21 12/07/21 Range/Units 08:48 08:48 08:48 WBC 7.7 (3.8-10.6) k/uL RBC 4.72 (3.80-5.40) m/uL Hgb 13.6 (11.4-16.0) gm/dL Hct 44.3 (34.0-46.0) % MCV 93.8 (80.0-100.0) fL MCH 28.9 (25.0-35.0) pg MCHC 30.7 L (31.0-37.0) g/dL RDW 15.0 (11.5-15.5) % Plt Count 263 (150-450) k/uL MPV 7.2 Neutrophils % 59 % Lymphocytes % 31 % Monocytes % 4 % Eosinophils % 3 % Basophils % 1 % Neutrophils # 4.6 (1.3-7.7) k/uL Lymphocytes # 2.3 (1.0-4.8) k/uL Monocytes # 0.3 (0-1.0) k/uL Eosinophils # 0.2 (0-0.7) k/uL Basophils # 0.1 (0-0.2) k/uL PT 10.6 (9.0-12.0) sec INR 1.0 (<1.2) APTT 24.3 (22.0-30.0) sec Sodium 139 (137-145) mmol/L Potassium 4.5 (3.5-5.1) mmol/L Chloride 101 (98-107) mmol/L Carbon Dioxide 30 (22-30) mmol/L Anion Gap 8 mmol/L BUN 16 (7-17) mg/dL Creatinine 1.07 H (0.52-1.04) mg/dL Est GFR (CKD-EPI)AfAm 72 (>60 ml/min/1.73 sqM) Est GFR (CKD-EPI)NonAf 63 (>60 ml/min/1.73 sqM) Glucose 210 H (74-99) mg/dL Calcium 9.7 (8.4-10.2) mg/dL Total Bilirubin 1.8 H (0.2-1.3) mg/dL AST 40 H (14-36) U/L ALT 28 (4-34) U/L Alkaline Phosphatase 70 (38-126) U/L Troponin I (0.000-0.034) ng/mL Total Protein 8.3 H (6.3-8.2) g/dL Albumin 4.6 (3.5-5.0) g/dL TSH >100.000 H (0.465-4.680) mIU/L Free T4 (0.78-2.19) ng/dL Cortisol ug/dL Urine Color Urine Appearance (Clear) Urine pH (5.0-8.0) Ur Specific [place] (1.001-1.035) Urine Protein (Negative) Urine Glucose (UA) (Negative) Urine Ketones (Negative) Urine Blood (Negative) Urine Nitrite (Negative) Urine Bilirubin (Negative) Urine Urobilinogen (<2.0) mg/dL Ur Leukocyte Esterase (Negative) Urine RBC (0-5) /hpf Urine WBC (0-5) /hpf Ur Squamous Epith Cells (0-4) /hpf Urine Mucus (None) /hpf 12/07/21 12/07/21 12/07/21 Range/Units 08:48 08:48 08:48 WBC (3.8-10.6) k/uL RBC (3.80-5.40) m/uL Hgb (11.4-16.0) gm/dL Hct (34.0-46.0) % MCV (80.0-100.0) fL MCH (25.0-35.0) pg MCHC (31.0-37.0) g/dL RDW (11.5-15.5) % Plt Count (150-450) k/uL MPV Neutrophils % % Lymphocytes % % Monocytes % % Eosinophils % % Basophils % % Neutrophils # (1.3-7.7) k/uL Lymphocytes # (1.0-4.8) k/uL Monocytes # (0-1.0) k/uL Eosinophils # (0-0.7) k/uL Basophils # (0-0.2) k/uL PT (9.0-12.0) sec INR (<1.2) APTT (22.0-30.0) sec Sodium (137-145) mmol/L Potassium (3.5-5.1) mmol/L Chloride (98-107) mmol/L Carbon Dioxide (22-30) mmol/L Anion Gap mmol/L BUN (7-17) mg/dL Creatinine (0.52-1.04) mg/dL Est GFR (CKD-EPI)AfAm (>60 ml/min/1.73 sqM) Est GFR (CKD-EPI)NonAf (>60 ml/min/1.73 sqM) Glucose (74-99) mg/dL Calcium (8.4-10.2) mg/dL Total Bilirubin (0.2-1.3) mg/dL AST (14-36) U/L ALT (4-34) U/L Alkaline Phosphatase (38-126) U/L Troponin I <0.012 (0.000-0.034) ng/mL Total Protein (6.3-8.2) g/dL Albumin (3.5-5.0) g/dL TSH (0.465-4.680) mIU/L Free T4 0.07 L (0.78-2.19) ng/dL Cortisol ug/dL Urine Color Yellow Urine Appearance Cloudy H (Clear) Urine pH 6.0 (5.0-8.0) Ur Specific [place] 1.018 (1.001-1.035) Urine Protein 2+ H (Negative) Urine Glucose (UA) Negative (Negative) Urine Ketones Negative (Negative) Urine Blood Negative (Negative) Urine Nitrite Negative (Negative) Urine Bilirubin Negative (Negative) Urine Urobilinogen <2.0 (<2.0) mg/dL Ur Leukocyte Esterase Trace H (Negative) Urine RBC 1 (0-5) /hpf Urine WBC 7 H (0-5) /hpf Ur Squamous Epith Cells 10 H (0-4) /hpf Urine Mucus Rare H (None) /hpf 12/07/21 Range/Units 08:48 WBC (3.8-10.6) k/uL RBC (3.80-5.40) m/uL Hgb (11.4-16.0) gm/dL Hct (34.0-46.0) % MCV (80.0-100.0) fL MCH (25.0-35.0) pg MCHC (31.0-37.0) g/dL RDW (11.5-15.5) % Plt Count (150-450) k/uL MPV Neutrophils % % Lymphocytes % % Monocytes % % Eosinophils % % Basophils % % Neutrophils # (1.3-7.7) k/uL Lymphocytes # (1.0-4.8) k/uL Monocytes # (0-1.0) k/uL Eosinophils # (0-0.7) k/uL Basophils # (0-0.2) k/uL PT (9.0-12.0) sec INR (<1.2) APTT (22.0-30.0) sec Sodium (137-145) mmol/L Potassium (3.5-5.1) mmol/L Chloride (98-107) mmol/L Carbon Dioxide (22-30) mmol/L Anion Gap mmol/L BUN (7-17) mg/dL Creatinine (0.52-1.04) mg/dL Est GFR (CKD-EPI)AfAm (>60 ml/min/1.73 sqM) Est GFR (CKD-EPI)NonAf (>60 ml/min/1.73 sqM) Glucose (74-99) mg/dL Calcium (8.4-10.2) mg/dL Total Bilirubin (0.2-1.3) mg/dL AST (14-36) U/L ALT (4-34) U/L Alkaline Phosphatase (38-126) U/L Troponin I (0.000-0.034) ng/mL Total Protein (6.3-8.2) g/dL Albumin (3.5-5.0) g/dL TSH (0.465-4.680) mIU/L Free T4 (0.78-2.19) ng/dL Cortisol 10 ug/dL Urine Color Urine Appearance (Clear) Urine pH (5.0-8.0) Ur Specific [place] (1.001-1.035) Urine Protein (Negative) Urine Glucose (UA) (Negative) Urine Ketones (Negative) Urine Blood (Negative) Urine Nitrite (Negative) Urine Bilirubin (Negative) Urine Urobilinogen (<2.0) mg/dL Ur Leukocyte Esterase (Negative) Urine RBC (0-5) /hpf Urine WBC (0-5) /hpf Ur Squamous Epith Cells (0-4) /hpf Urine Mucus (None) /hpf Disposition Clinical Impression: Hypothyroid, Cephalgia, Generalized weakness, Hyperglycemia, Nonadherence to medication Disposition: ADMITTED IP TO THIS [facility] Condition: Good Is patient prescribed a controlled substance at d/c from ED?: No Time of Disposition: 11:20 Decision to Admit Reason: Admit from EC Decision Date: 12/07/21 Decision Time: 11:20
[2021-12-07] MEDS ORDERED: LEVOTHYROXINE IVP 100 MCG/5 ML VIAL IV SCH (11:15)
[2021-12-07] MEDS ORDERED: LEVOTHYROXINE IVP 100 MCG/5 ML VIAL IV ONE ×2 (11:18→11:30)
[2021-12-07] MEDS ORDERED: NALOXONE 0.4 MG/ML 1 ML VIAL IV PRN (11:22)
[2021-12-07] MEDS ORDERED: HYDROCORTISONE SUCCINATE 100 MG/2 ML VIAL IV ONE (11:30)
[2021-12-07] MEDS: HYDROCORTISONE SUCCINATE 100 MG/2 ML VIAL IV SCH ×2 (11:33→20:13)
[2021-12-07 12:12] LABS: Glucose,Whole Blood 201 mg/dL (70-110)
--- NOTE | 2021-12-07 12:20 | P.HPIM ---
History of Present Illness H&P Date: 12/07/21 Chief Complaint: Headache, slurred speech 46-year-old woman with medical history of hypothyroidism, hypertension, diabetes, hyperlipidemia presented with slurred speech and headache. Patient says that she stopped taking her medications proximally 4 weeks ago when she could not fill them at her doctor's office. Since that time, she has been abstinent from any medications including her thyroid medication, diabetes medication, blood pressure medication. She is noticed since that time that her speech is gotten more slurred and she's gotten more swelling, but what brought her in today was that she had a headache as well as some ear fullness. She denies fevers, chills, nausea, vomiting, chest pain, palps, cough, dyspnea, abd pain, dysuria, dyschezia, numbness/weakness of extremeties. In the emergency room, patient was afebrile, 148/95, heart rate 85, 100% on room air. CBC was unremarkable. Chemistries were remarkable for an elevated creatinine to 1.1 from baseline of 0.7 as well as an elevated glucose of 210. Liver function tests show mildly elevated AST to 40, otherwise unremarkable. TSH/free T4 were significantly abnormal with a TSH greater than 100 and a free T4 0.07. UA was contaminated. All Systems reviewed and pertinent positives and negatives noted in HPI, all other symptoms are negative Gen: in no apparent distress, resting comfortably in bed Eyes: PERRL, no scleral injection or icterus, preorbital edema HENT: normocephalic, atraumatic, good hearing acuity, moist mucous membranes Neck: no tracheal deviation, full range of motion Resp: good air exchange, breathing comfortably with no accessory muscle use, no tactile fremitus CVS: good distal perfusion x 4, no pitting edema GI: soft, NTTP, ND, no hepatosplenomegaly : no suprapubic tenderness, no CVAT, galaviz catheter not present MSK: no clubbing, no cyanosis, no noted contractures of extremities, diffuse nonpitting edema Skin: no noted rashes, petechiae; temperature of skin is appropriate, preorbital edema Neuro: moving all extremities without signs of weakness, CN II-XII intact Psych: cooperative, euthymic mood, insight and judgment intact Labs and imaging reviewed as above Assessment/plan: Severe hypothyroidism -Admit to observation, telemetry -IV levothyroxine 200 g 1 time -IV hydrocortisone 100mg TID -By mouth levothyroxine 175 g daily -Obtain cortisol level -Repeat thyroid function tests in 4 weeks -Will require close PCP follow-up Diabetes type 2 -Start low-dose sliding scale insulin -Outpatient metformin with correctional insulin -A1c Hypertension -Lisinopril, amlodipine Hyperlipidemia -Atorvastatin Patient is full code DVT prophylaxis with early undulation Past Medical History Past Medical History: Thyroid Disorder Additional Past Medical History / Comment(s): obesity History of Any Multi-Drug Resistant Organisms: None Reported Past Surgical History: Section, Cholecystectomy Past Psychological History: No Psychological Hx Reported Smoking Status: Never smoker Past Alcohol Use History: None Reported Past Drug Use History: None Reported Medications and Allergies Home Medications Medication Instructions Recorded Confirmed Type No Known Home Medications 12/07/21 12/07/21 History Allergies Allergy/AdvReac Type Severity Reaction Status Date / Time Penicillins Allergy Rash/Hives Verified 12/07/21 07:58 Physical Exam Osteopathic Statement: *. No significant issues noted on an osteopathic structural exam other than those noted in the History and Physical/Consult. Vitals: Vital Signs Temp Pulse Resp BP Pulse Ox 12/07/21 12:01 98 F 85 16 148/95 12/07/21 09:49 140/92 12/07/21 08:00 98.1 F 71 16 185/114 97 Intake and Output 12/06/21 12/07/21 12/07/21 22:59 06:59 14:59 Other: Weight 149.685 kg Results CBC & Chem 7: 12/07/21 08:48 12/07/21 08:48 Labs: Abnormal Lab Results - Last 24 Hours (Table) 12/07/21 12/07/21 12/07/21 Range/Units 08:48 08:48 08:48 MCHC 30.7 L (31.0-37.0) g/dL Creatinine 1.07 H (0.52-1.04) mg/dL Glucose 210 H (74-99) mg/dL Total Bilirubin 1.8 H (0.2-1.3) mg/dL AST 40 H (14-36) U/L Total Protein 8.3 H (6.3-8.2) g/dL TSH >100.000 H (0.465-4.680) mIU/L Free T4 (0.78-2.19) ng/dL Urine Appearance Cloudy H (Clear) Urine Protein 2+ H (Negative) Ur Leukocyte Esterase Trace H (Negative) Urine WBC 7 H (0-5) /hpf Ur Squamous Epith Cells 10 H (0-4) /hpf Urine Mucus Rare H (None) /hpf 12/07/21 Range/Units 08:48 MCHC (31.0-37.0) g/dL Creatinine (0.52-1.04) mg/dL Glucose (74-99) mg/dL Total Bilirubin (0.2-1.3) mg/dL AST (14-36) U/L Total Protein (6.3-8.2) g/dL TSH (0.465-4.680) mIU/L Free T4 0.07 L (0.78-2.19) ng/dL Urine Appearance (Clear) Urine Protein (Negative) Ur Leukocyte Esterase (Negative) Urine WBC (0-5) /hpf Ur Squamous Epith Cells (0-4) /hpf Urine Mucus (None) /hpf
[2021-12-07] MEDS ORDERED: INSULIN ASPART (NovoLOG) 100 UNIT/ML VIAL SQ SCH ×3 (12:30→17:30)
[2021-12-07] MEDS: lisinopriL 5 MG TAB PO SCH (13:25)
[2021-12-07] MEDS: amLODIPine 5 MG TAB PO SCH (13:25)
[2021-12-07 17:29] LABS: Glucose,Whole Blood 344 mg/dL (70-110)
[2021-12-07] MEDS: ATORVASTATIN 40 MG TAB PO SCH (20:13)
[2021-12-07 21:15] LABS: Glucose,Whole Blood 322 mg/dL (70-110)
[2021-12-07] MEDS: INSULIN ASPART (NovoLOG) 100 UNIT/ML VIAL SQ SCH (21:54)
[2021-12-08] MEDS: HYDROCORTISONE SUCCINATE 100 MG/2 ML VIAL IV SCH ×2 (04:29→21:50)
[2021-12-08] MEDS: LEVOTHYROXINE 88 MCG TAB PO SCH (05:49)
[2021-12-08 07:10] LABS: Glucose,Whole Blood 261 mg/dL (70-110)
[2021-12-08] MEDS: amLODIPine 5 MG TAB PO SCH (07:52)
[2021-12-08] MEDS: INSULIN ASPART (NovoLOG) 100 UNIT/ML VIAL SQ SCH ×4 (07:52→21:50)
[2021-12-08] MEDS: lisinopriL 5 MG TAB PO SCH (07:52)
[2021-12-08 08:59] LABS: Basophils # (A) 0.04 X 10*3/uL (0.00-0.10); Basophils % (A) 0.4 %; Eosinophils # (A) 0.01 X 10*3/uL (0.04-0.35); Eosinophils % (A) 0.1 %; HCT 39.8 % (37.2-46.3); HGB 12.4 g/dL (12.0-15.0); Immature Grans, Automated 0.7 %; Lymphocytes # (A) 2.27 X 10*3/uL (0.90-5.00); Lymphocytes % (A) 23.3 %; MCH 28.7 pg (27.0-32.0); MCHC 31.2 g/dL (32.0-37.0); MCV 92.1 fL (80.0-97.0); Monocytes # (A) 0.34 X 10*3/uL (0.20-1.00); Monocytes % (A) 3.5 %; NRBC Per 100 WBC 0 /100 WBCS (0.0-0.0); Neutrophils # (A) 7.01 X 10*3/uL (1.80-7.70); Platelet Count 270 X 10*3/uL (140-440); RBC 4.32 X 10*6/uL (4.10-5.20); RDW 14.7 % (11.5-14.5); WBC 9.74 X 10*3/uL (4.50-10.00)
[2021-12-08 09:14] LABS: African American GFR (CKD) 78.2 (60.0-200.0); Anion Gap 10.3 mmol/L (10.00-18.00); BUN/Creat Ratio 15.3 Ratio (12.00-20.00); Blood Urea Nitrogen 15.3 mg/dL (9.0-27.0); Calcium 9.5 mg/dL (8.7-10.3); Carbon Dioxide 25.7 mmol/L (20.0-27.5); Non-African American GFR(CKD) 67.5 (60.0-200.0); Potassium 4.4 mmol/L (3.5-5.5)
--- NOTE | 2021-12-08 09:53 | P.PN ---
Subjective Patient was examined at bedside today continues to complain of some tingling sensation in her face specifically left side and her left upper extremity. She denies any focal deficits including any weakness or sensory abnormalities in any other parts of her body. Patient states that she has been out of her medications due to change in insurance. 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 Objective - Vital Signs Vital signs: Vital Signs Temp 97.5 F L 12/08/21 05:00 Pulse 75 12/08/21 07:54 Resp 16 12/08/21 05:00 BP 145/81 12/08/21 07:54 Pulse Ox 95 12/08/21 05:00 FiO2 Intake & Output 12/07/21 12/08/21 12/08/21 18:59 06:59 18:59 Intake Total 360 Balance 360 Weight 149.685 kg 149.685 kg Intake: Oral 360 Other: # Voids 2 - Exam Gen. patient is awake alert oriented 3 Cardio normal S1/S2 no murmurs appreciated Respiratory no wheezing or rhonchi appreciated however decreased breath sounds secondary body habitus Abdomen soft, nontender Neuro cranial nerves II-12 grossly intact, left upper extremity sensory abnormality tingling sensation noted as well as her left face. -Strength 5 out of 5 in the upper and lower extremity Psych in good spirits. - Labs CBC & Chem 7: 12/08/21 04:35 12/08/21 04:35 Labs: Abnormal Lab Results - Last 24 Hours (Table) 12/07/21 12/07/21 12/07/21 Range/Units 08:48 08:48 08:48 MCHC (32.0-37.0) g/dL RDW (11.5-14.5) % Immature Gran # (0.00-0.04) X 10*3/uL Eosinophils # (0.04-0.35) X 10*3/uL Sodium (135-145) mmol/L Glucose (70-110) mg/dL POC Glucose (mg/dL) (70-110) mg/dL Hemoglobin A1c (0.0-6.0) % TSH >100.000 H (0.465-4.680) mIU/L Free T4 0.07 L (0.78-2.19) ng/dL Urine Appearance Cloudy H (Clear) Urine Protein 2+ H (Negative) Ur Leukocyte Esterase Trace H (Negative) Urine WBC 7 H (0-5) /hpf Ur Squamous Epith Cells 10 H (0-4) /hpf Urine Mucus Rare H (None) /hpf 12/07/21 12/07/21 12/07/21 Range/Units 12:10 17:27 21:12 MCHC (32.0-37.0) g/dL RDW (11.5-14.5) % Immature Gran # (0.00-0.04) X 10*3/uL Eosinophils # (0.04-0.35) X 10*3/uL Sodium (135-145) mmol/L Glucose (70-110) mg/dL POC Glucose (mg/dL) 201 H 344 H 322 H (70-110) mg/dL Hemoglobin A1c (0.0-6.0) % TSH (0.465-4.680) mIU/L Free T4 (0.78-2.19) ng/dL Urine Appearance (Clear) Urine Protein (Negative) Ur Leukocyte Esterase (Negative) Urine WBC (0-5) /hpf Ur Squamous Epith Cells (0-4) /hpf Urine Mucus (None) /hpf 12/08/21 12/08/21 12/08/21 Range/Units 04:35 04:35 04:35 MCHC 31.2 L (32.0-37.0) g/dL RDW 14.7 H (11.5-14.5) % Immature Gran # 0.07 H (0.00-0.04) X 10*3/uL Eosinophils # 0.01 L (0.04-0.35) X 10*3/uL Sodium 134 L (135-145) mmol/L Glucose 327 H (70-110) mg/dL POC Glucose (mg/dL) (70-110) mg/dL Hemoglobin A1c 9.4 H (0.0-6.0) % TSH (0.465-4.680) mIU/L Free T4 (0.78-2.19) ng/dL Urine Appearance (Clear) Urine Protein (Negative) Ur Leukocyte Esterase (Negative) Urine WBC (0-5) /hpf Ur Squamous Epith Cells (0-4) /hpf Urine Mucus (None) /hpf 12/08/21 Range/Units 07:00 MCHC (32.0-37.0) g/dL RDW (11.5-14.5) % Immature Gran # (0.00-0.04) X 10*3/uL Eosinophils # (0.04-0.35) X 10*3/uL Sodium (135-145) mmol/L Glucose (70-110) mg/dL POC Glucose (mg/dL) 261 H (70-110) mg/dL Hemoglobin A1c (0.0-6.0) % TSH (0.465-4.680) mIU/L Free T4 (0.78-2.19) ng/dL Urine Appearance (Clear) Urine Protein (Negative) Ur Leukocyte Esterase (Negative) Urine WBC (0-5) /hpf Ur Squamous Epith Cells (0-4) /hpf Urine Mucus (None) /hpf Assessment and Plan Assessment: Severe hypothyroidism -Admit to observation, telemetry -IV levothyroxine 200 g 1 time -IV hydrocortisone 100mg TID we'll continue de-escalate 200 mg twice a day -By mouth levothyroxine 175 g daily education regarding compliance take this first thing in the morning without any other medication or food -Obtain cortisol level reviewed -Repeat thyroid function tests in 4 weeks -Will require close PCP follow-up and endocrinology follow-up we'll [place] with case management Diabetes type 2 -Start low-dose sliding scale insulin -Outpatient metformin with correctional insulin -A1c 9.4 - we will try to obtain patient's home medication list. Hypertension -Lisinopril, amlodipine Numbness/tingling sensation in the left face and upper extremity left -Neurology consulted for further evaluation -CT scan of the brain reviewed -We'll obtain vitamin B12 level however was likely related to thyroid disorder. Would like to rule out any other etiology she continues to complain of this. Patient is full code DVT prophylaxis Patient's home medication have not been verified by pharmacy communicated to RN and we will resume home insulin regimen accordingly.
[2021-12-08] MEDS ORDERED: ASPIRIN 81 MG PO STA (11:32)
[2021-12-08 11:38] LABS: Glucose,Whole Blood 332 mg/dL (70-110)
--- NOTE | 2021-12-08 12:30 | P.CNNES ---
History of Present Illness Consult date: 12/08/21 Requesting physician: Julio Nuno Reason for Consult: Numbness in fingers History of Present Illness: Patient is a 46-year-old right-handed female came to the hospital yesterday at 7:50 AM, to rule out stroke TIA. Patient has history of hypothyroidism, not taking her medication since August 2021. She has history of hypertension, diabetes, not well controlled. Patient states that for the last couple months she has been having numbness of the fingertips of both hands, left more than right. She also has difficulty making fist with both hands. She does have carpal tunnel syndrome, but when she uses the wrist braces, it hurts her more, therefore not using it. Patient states she has been having "hard time with left side". In the last 2 weeks she has been having intermittent episodes of slurred speech, which is noticed by her brother and friends. She states that sometimes she feels like as if she is drunk although she does not drink at all. Sometimes she feels very groggy. Sometimes she feels like in a "brain fog". She is noticing ringing in the ears. Patient states that she suffered from flu in September 2021, and she has not been feeling well since then. Vital signs arrival blood pressure 185/114, that improved to 140/92. Pulse is [address] head showed no acute intracranial abnormality. I personally reviewed CT head, agree with the findings. No acute process. However on my review, the lateral ventricles appears slitlike. Chest x-ray limited exam due to large body habitus and under penetration. EKG shows sinus bradycardia. Low QRS voltage. Blood test shows normal CBC, PT/PTT, normal electrolytes, BUN 16, creatine 1.07. Hemoglobin A1c 9.4. AST is 40, ALT 28. TSH is > 100, with free T4 decreased 0.07, cortisone level is normal. UA negative. Patient has history of hypertension and diabetes, diagnosed in March 2021. Her initial hemoglobin A1c was 10.6. Patient has stopped taking her medications because she does not have any PCP since August 2021. She denies any tobacco or alcohol use. 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 She has only one incisor tooth. She has hypothyroidism since age 21 when she started having galacturia and was found to have hypothyroidism. Patient states she has a strong family history of strokes, in her father, paternal grandfather and grandmother's on both sides. Review of Systems Complains of arthritis of the knees, pain in the middle toe and side of the left foot, which is better since she is on steroids. Low back pain. Patient says that she has been choking a lot, and her voice has changed. If she is writing, it hurts really bad in her hands, and she cannot hold things for long probably because of carpal tunnel syndrome. Patient feels her inside of the left ear is swollen, but wasn't. Patient states that she woke up with headache today. Patient suffered from Covid in March 2021 for which she was hospitalized for a few days. All other 14 points of review systems reviewed, unremarkable except as mentioned in HPI. Past Medical History Past Medical History: Hypertension, Thyroid Disorder Additional Past Medical History / Comment(s): obesity History of Any Multi-Drug Resistant Organisms: None Reported Past Surgical History: Section, Cholecystectomy Past Psychological History: No Psychological Hx Reported Smoking Status: Never smoker Past Alcohol Use History: None Reported Past Drug Use History: None Reported Medications and Allergies Home Medications Medication Instructions Recorded Confirmed Type Albuterol Sulfate [Albuterol 2 puff PO RT-Q6H PRN 12/08/21 12/08/21 History Sulfate Hfa] Cetirizine HCl 10 mg PO DAILY PRN 12/08/21 12/08/21 History Insulin Aspart [NovoLOG Flexpen] 5 unit SQ AC-TID 12/08/21 12/08/21 History Insulin Glargine,Hum.rec.anlog 50 unit SQ HS 12/08/21 12/08/21 History [Lantus Solostar Pen] Levothyroxine Sodium [Synthroid] 150 mcg PO DAILY 12/08/21 12/08/21 History Metoprolol Succinate (ER) [Toprol 25 mg PO DAILY 12/08/21 12/08/21 History Xl] Naproxen [Naprosyn] 500 mg PO BID PRN 12/08/21 12/08/21 History Allergies Allergy/AdvReac Type Severity Reaction Status Date / Time Penicillins Allergy Rash/Hives Verified 12/07/21 07:58 Physical Examination - Vital Signs Vital Signs: Vital Signs Temp Pulse Pulse Resp BP BP Pulse Ox 12/08/21 07:54 75 145/81 12/08/21 05:00 97.5 F L 55 L 16 165/84 95 12/07/21 21:15 98.5 F 71 16 166/110 95 12/07/21 20:00 16 12/07/21 16:32 70 16 146/94 98 12/07/21 13:27 98 F 75 18 169/94 12/07/21 12:01 98 F 85 16 148/95 12/07/21 09:49 140/92 Intake and Output 12/07/21 12/08/21 12/08/21 22:59 06:59 14:59 Intake Total 360 Balance 360 Intake: Oral 360 Other: # Voids 2 Weight 149.685 kg Patient is a middle aged female, very pleasant, in no acute distress. Patient is alert awake oriented to time place and person. Speech and language functions are normal. No aphasia. Patient can repeat and name objects very well. Sometimes she appears to have slight lisp, and sometimes appears slight slurring, as she talks with slight "thick tongue". Attention, concentration and fund of knowledge is adequate. On cranial nerve examination, pupils are round and reacting to light, visual truong are full on confrontation, with no neglect on double simultaneous stimulation. Her extraocular muscles are intact with no nystagmus. Face is symmetric, tongue protrudes to the midline. Palatal elevation and sensation normal, hearing and shoulder shrug normal, facial sensation to touch is decreased in the left side. Shoulder shrug normal. On muscle strength testing, there is no pronator drift and the strength is normal in arms and legs distally and proximally. Deep tendon reflexes are very hypoactive all over and plantars are flat bilaterally. Sensory to touch is decreased in the face, arm and leg on the left side. Cerebellar function showed no ataxia for [id number] testing. No dysdiadochokinesia. Tone and bulk of muscles normal. Gait deferred. On general examination, there is no carotid bruit or murmur, S1-S2 audible. Abdomen is soft nontender. No organomegaly, bowel sounds present. Chest is clear. Peripheral pulses are present. Her hands appear slightly swollen. Patient possibly has slight pretibial edema. Results - Laboratory Findings CBC and BMP: 12/08/21 04:35 12/08/21 04:35 Abnormal Lab Findings: Abnormal Labs 12/07/21 12/07/21 12/07/21 08:48 08:48 08:48 MCHC 30.7 L RDW Immature Gran # Eosinophils # Creatinine 1.07 H Glucose 210 H POC Glucose (mg/dL) Hemoglobin A1c Total Bilirubin 1.8 H AST 40 H Total Protein 8.3 H TSH >100.000 H Free T4 Urine Appearance Cloudy H Urine Protein 2+ H Ur Leukocyte Esterase Trace H Urine WBC 7 H Ur Squamous Epith Cells 10 H Urine Mucus Rare H 12/07/21 12/07/21 12/07/21 08:48 12:10 17:27 MCHC RDW Immature Gran # Eosinophils # Creatinine Glucose POC Glucose (mg/dL) 201 H 344 H Hemoglobin A1c Total Bilirubin AST Total Protein TSH Free T4 0.07 L Urine Appearance Urine Protein Ur Leukocyte Esterase Urine WBC Ur Squamous Epith Cells Urine Mucus 12/07/21 12/08/21 12/08/21 21:12 04:35 04:35 MCHC 31.2 L RDW 14.7 H Immature Gran # 0.07 H Eosinophils # 0.01 L Creatinine Glucose POC Glucose (mg/dL) 322 H Hemoglobin A1c 9.4 H Total Bilirubin AST Total Protein TSH Free T4 Urine Appearance Urine Protein Ur Leukocyte Esterase Urine WBC Ur Squamous Epith Cells Urine Mucus 12/08/21 07:00 MCHC RDW Immature Gran # Eosinophils # Creatinine Glucose POC Glucose (mg/dL) 261 H Hemoglobin A1c Total Bilirubin AST Total Protein TSH Free T4 Urine Appearance Urine Protein Ur Leukocyte Esterase Urine WBC Ur Squamous Epith Cells Urine Mucus Assessment and Plan Assessment: * 46-year-old female, with 2 week history of intermittent slurred speech. Examination revealed very mild intermittent slurring, and subjective decreased sensation for touch on the left side. Rule out stroke TIA. * Medication noncompliance was stopped taking medication since August 2021 (due to losing PCP). * Hypothyroidism, severe * Diabetes, poorly controlled * Hypertension * Carpal tunnel syndrome * Morbid obesity * Hyperlipidemia Plan: * Patient is having intermittent slurred speech. Need to rule out CVA. * MRI brain recommended, but because of morbid obesity, cannot have it performed in this hospital. She may have to have MRI done as an outpatient. * We will perform stroke workup, with carotid Doppler, 2-D echo with bubble study. * Fasting a.m. lipid panel. * Hemoglobin A1c 9.7. Recommend optimize control of diabetes to target A1c < 7.0 * Telemetry monitoring to rule out arrhythmia. * Start aspirin regimen. Patient given loading dose of aspirin 324 mg. * Neurology will follow. Thank you for the consult.
--- NOTE | 2021-12-08 14:36 | US ---
EXAMINATION TYPE: US carotid duplex BILAT DATE OF EXAM: 12/08/2021 COMPARISON: NONE CLINICAL HISTORY: Slurred speech, ?TIA. HTN controlled with meds per patient. EXAM MEASUREMENTS: RIGHT: Peak Systolic Velocity (PSV) cm/sec ----- Right CCA: 96.1 ----- Right ICA: 95.5 ----- Right ECA: 180.0 ICA/CCA ratio: 1.0 RIGHT: End Diastole cm/sec ----- Right CCA: 16.2 ----- Right ICA: 24.7 ----- Right ECA: 0.0 LEFT: Peak Systolic Velocity (PSV) cm/sec ----- Left CCA: 104.0 ----- Left ICA: 95.5 ----- Left ECA: 134.0 ICA/CCA ratio: 0.9 LEFT: End Diastole cm/sec ----- Left CCA: 14.9 ----- Left ICA: 32.5 ----- Left ECA: 0.0 VERTEBRALS (direction of flow): Right Vertebral: Antegrade Left Vertebral: Antegrade Rhythm: Normal Elevated right ECA velocity. No plaque. Wall thickening seen. No significant stenosis. IMPRESSION: 1. No significant hemodynamic stenosis. Criteria for Assigning % of Stenosis / Diameter reduction (Estimation based on the indirect measurements of the internal carotid artery velocities (ICA PSV). 1. Normal (no stenosis)=ICA PSV < 125 cm/s: ratio < 2.0: ICA EDV<40 cm/s. 2. Less than 50% stenosis=ICA PSV < 125 cm/s: ratio < 2.0: ICA EDV<40 cm/s. 3. 50 to 69% stenosis=ICA PSV of 125 to 230 cm/s: ration 2.0 ? 4.0: ICA EDV 40-100 cm/s. 4. Greater than 70% stenosis to near occlusion= ICA PSV > 230 cm/s: ratio > 4.0: ICA EDV > 100 cm/s. 5. Near occlusion= ICA PSV velocities may be low or undetectable: variable ratio and ICA EDV. 6. Total occlusion=unable to detect flow.
[2021-12-08 15:41] LABS: Chol/HDL Ratio 12.18 Ratio; LDL Cholesterol,Calculated 280.4 mg/dL (0.0-131.0)
[2021-12-08 17:14] LABS: Glucose,Whole Blood 257 mg/dL (70-110)
[2021-12-08 20:00] LABS: Glucose,Whole Blood 216 mg/dL (70-110)
[2021-12-08] MEDS: ATORVASTATIN 40 MG TAB PO SCH (21:50)
[2021-12-09] MEDS: LEVOTHYROXINE 88 MCG TAB PO SCH (05:44)
[2021-12-09] MEDS ORDERED: INSULIN DETEMIR (LEVEMIR) 100 UNIT/ML SYR SQ SCH ×2 (07:00→21:00)
[2021-12-09 07:06] LABS: Glucose,Whole Blood 287 mg/dL (70-110)
[2021-12-09] MEDS: INSULIN ASPART (NovoLOG) 100 UNIT/ML VIAL SQ SCH ×4 (08:57→12:39)
[2021-12-09] MEDS: HYDROCORTISONE SUCCINATE 100 MG/2 ML VIAL IV SCH (08:58)
[2021-12-09] MEDS: lisinopriL 5 MG TAB PO SCH (08:58)
[2021-12-09] MEDS: amLODIPine 5 MG TAB PO SCH (08:58)
--- NOTE | 2021-12-09 09:46 | CA ---
Transthoracic Echo Report Name: Isa Stevens Age: 46 Gender: F : 1975 Exam Date: 12/08/2021 14:14 Exam Location: [facility] Ht (in): 62 Wt (lb): 330 Ordering Physician: Mj Wong MD Attending/Referring Phys: Automatic Lathe Operator Corinne Chiu RDCS Procedure CPT: Indications: slurred speech Cardiac Hx: Technical Quality: Fair Contrast 1: Total Dose (mL): Contrast 2: Total Dose (mL): MEASUREMENTS (Male / Female) Normal Values 2D ECHO LV Diastolic Diameter PLAX 3.5 cm 4.2 - 5.9 / 3.9 - 5.3 cm LV Systolic Diameter PLAX 3.3 cm IVS Diastolic Thickness 1.4 cm 0.6 - 1.0 / 0.6 - 0.9 cm LVPW Diastolic Thickness 1.8 cm 0.6 - 1.0 / 0.6 - 0.9 cm LV Relative Wall Thickness 0.9 M-MODE Aortic Root Diameter MM 2.9 cm LA Systolic Diameter MM 3.2 cm LA Ao Ratio MM 1.1 DOPPLER MV Area PHT 3.5 cm??? Mitral E Point Velocity 54.6 cm/s Mitral A Point Velocity 48.8 cm/s Mitral E to A Ratio 1.1 MV Deceleration Time 218.5 ms MV E' Velocity 5.8 cm/s Mitral E to MV E' Ratio 9.3 FINDINGS Left Ventricle Left ventricular ejection fraction is estimated at 50-55%. Right Ventricle Normal right ventricular size and function. Right Atrium Right atrium not well visualized. Left Atrium Normal left atrial size. Bubble Study not performed due to body habitus. TDS imaging. Mitral Valve Structurally normal mitral valve. Mild mitral regurgitation. Aortic Valve Trileaflet aortic valve. Tricuspid Valve Tricuspid valve not well visualized. Pulmonic Valve Pulmonic valve not well visualized. Pericardium Echo free space anterior to the right ventricle likely represents a fat pad. Aorta Aortic root and proximal ascending aorta not well visualized. CONCLUSIONS Fairly well-preserved systolic function. Technically difficult study bubble study was not performed. Previewed by: Dr. Skye Cummings MD (Electronically Signed) Final Date: 09 December 2021 09:45
[2021-12-09] MEDS ORDERED: ASPIRIN 81 MG PO SCH (10:15)
[2021-12-09 11:57] VITALS: BP 160/80; PULSE 71; RESP 18; TEMP 98.6
--- NOTE | 2021-12-09 12:19 | P.DS ---
Providers Date of admission: 12/07/21 11:24 Expected date of discharge: 12/09/21 Attending physician: Kristina Harvey DO Consults: 12/08/21 08:18 Consult Physician Stat Consulting Provider: Mj Wong Consult Reason/Comments: numbness in fingers Do you want consulting provider notified?: Yes Primary care physician: Stated None Hospital Course: Severe hypothyroidism Diabetes type 2, uncontrolled Hypertension Hyperlipidemia 46-year-old woman with medical history of hypothyroidism, hypertension, diabetes, hyperlipidemia presented with slurred speech and headache. In the emergency room, patient was afebrile, 148/95, heart rate 85, 100% on room air. CBC was unremarkable. Chemistries were remarkable for an elevated creatinine to 1.1 from baseline of 0.7 as well as an elevated glucose of 210. Liver function tests show mildly elevated AST to 40, otherwise unremarkable. TSH/free T4 were significantly abnormal with a TSH greater than 100 and a free T4 0.07. UA was contaminated. Neurology was consulted for slurred speech, headache. They recommended MRI, however, patient was too big to fit into our MRI machine, and they were okay with deferring this to the outpatient setting. Patient's blood pressure is better controlled with the initiation of amlodipine, lisinopril and the continuation of her home metoprolol. Patient was discharged home with her new medication regimen as well as new diabetic supplies and new prescriptions for all of her meds. She'll follow-up with a primary care physician as well as arrange follow-up with an supervisor picking crew. I spent 34 minutes coordinating this complex discharge, discharge date 12/09 Gen: in no apparent distress, resting comfortably in bed Eyes: PERRL, no scleral injection or icterus, preorbital edema HENT: normocephalic, atraumatic, good hearing acuity, moist mucous membranes Neck: no tracheal deviation, full range of motion Resp: good air exchange, breathing comfortably with no accessory muscle use, no tactile fremitus CVS: good distal perfusion x 4, no pitting edema GI: soft, NTTP, ND, no hepatosplenomegaly : no suprapubic tenderness, no CVAT, galaviz catheter not present MSK: no clubbing, no cyanosis, no noted contractures of extremities, diffuse nonpitting edema Skin: no noted rashes, petechiae; temperature of skin is appropriate, preorbital edema Neuro: moving all extremities without signs of weakness, CN II-XII intact Psych: cooperative, euthymic mood, insight and judgment intact Patient Condition at Discharge: Good Plan - Discharge Summary New Discharge Prescriptions: New Levothyroxine Sodium [Synthroid] 176 mcg PO 0630 #30 tab Syr,Ndl,Insulin,1Ml-Sharps Bin [Ultiguard Safepack 1Ml 31G 8Mm] 1 syr INJ DIRECTED #1 each Atorvastatin [Lipitor] 80 mg PO HS #30 tab amLODIPine [Norvasc] 5 mg PO DAILY #30 tab lisinopriL [Zestril] 5 mg PO DAILY #30 tab Syringe-Needle,Insulin,0.5 ml [Insulin Syringe 29G 1/2" 0.5ML] 1 syr SQ DIRECTED #90 each Blood Sugar Diagnostic [Test Strips] 1 each MC AC-TID #90 strip Continue Cetirizine HCl 10 mg PO DAILY PRN PRN Reason: Allergy Symptoms Naproxen [Naprosyn] 500 mg PO BID PRN PRN Reason: Pain Albuterol Sulfate [Albuterol Sulfate Hfa] 2 puff PO RT-Q6H PRN PRN Reason: Shortness Of Breath Insulin Glargine,Hum.rec.anlog [Lantus Solostar Pen] 50 unit SQ HS #5 each Metoprolol Succinate (ER) [Toprol XL] 25 mg PO DAILY #30 tab Changed Insulin Aspart [NovoLOG Flexpen] 6 unit SQ AC-TID #2 each Discontinued Levothyroxine Sodium [Synthroid] 150 mcg PO DAILY Discharge Medication List Albuterol Sulfate [Albuterol Sulfate Hfa] 2 puff PO RT-Q6H PRN 12/08/21 [History] Cetirizine HCl 10 mg PO DAILY PRN 12/08/21 [History] Naproxen [Naprosyn] 500 mg PO BID PRN 12/08/21 [History] Atorvastatin [Lipitor] 80 mg PO HS #30 tab 12/09/21 [Rx] Blood Sugar Diagnostic [Test Strips] 1 each MC AC-TID #90 strip 12/09/21 [Rx] Insulin Aspart [NovoLOG Flexpen] 6 unit SQ AC-TID #2 each 12/09/21 [Rx] Insulin Glargine,Hum.rec.anlog [Lantus Solostar Pen] 50 unit SQ HS #5 each 12/09/21 [Rx] Levothyroxine Sodium [Synthroid] 176 mcg PO 0630 #30 tab 12/09/21 [Rx] Metoprolol Succinate (ER) [Toprol XL] 25 mg PO DAILY #30 tab 12/09/21 [Rx] Syr,Ndl,Insulin,1Ml-Sharps Bin [Ultiguard Safepack 1Ml 31G 8Mm] 1 syr INJ DIRECTED #1 each 12/09/21 [Rx] Syringe-Needle,Insulin,0.5 ml [Insulin Syringe 29G 1/2" 0.5ML] 1 syr SQ DIRECTED #90 each 12/09/21 [Rx] amLODIPine [Norvasc] 5 mg PO DAILY #30 tab 12/09/21 [Rx] lisinopriL [Zestril] 5 mg PO DAILY #30 tab 12/09/21 [Rx] Follow up Appointment(s)/Referral(s): None,Stated [Primary Care Provider] - 1-2 days Alisha Oneill MD [STAFF PHYSICIAN] - 1 Week Discharge Disposition: HOME SELF-CARE
[2021-12-09 12:22] LABS: Glucose,Whole Blood 253 mg/dL (70-110)
[2021-12-09] MEDS ORDERED: ATORVASTATIN 80 MG TAB PO SCH (21:00)
--- NOTE | 2021-12-10 09:21 | P.PN ---
Subjective Progress Note Date: 12/09/21 Patient was seen for a follow-up. Patient is sitting comfortably in the bed. Offers no new complaints. Objective - Vital Signs Vital signs: Vital Signs Temp 98.6 F 12/09/21 11:20 Pulse 71 12/09/21 11:20 Resp 18 12/09/21 11:20 BP 160/80 12/09/21 11:20 Pulse Ox 96 12/09/21 11:20 FiO2 Intake & Output 12/08/21 12/09/21 12/09/21 18:59 06:59 18:59 Intake Total 480 Balance 480 Intake: Oral 480 Other: Voiding Method Toilet Toilet Toilet # Voids 5 2 - Exam Patient's mental status, speech and language functions are normal. Muscle str ength is normal. - Labs CBC & Chem 7: 12/08/21 04:35 12/08/21 04:35 Labs: Abnormal Lab Results - Last 24 Hours (Table) 12/08/21 12/08/21 12/08/21 Range/Units 04:35 17:08 19:58 POC Glucose (mg/dL) 257 H 216 H (70-110) mg/dL Triglycerides 163.00 H (0.00-149.00) mg/dL Cholesterol 341.00 H (0.00-200.00) mg/dL LDL Cholesterol, Calc 280.4 H (0.0-131.0) mg/dL HDL Cholesterol 28.00 L (40.00-60.00) mg/dL 12/09/21 12/09/21 Range/Units 07:00 12:19 POC Glucose (mg/dL) 287 H 253 H (70-110) mg/dL Triglycerides (0.00-149.00) mg/dL Cholesterol (0.00-200.00) mg/dL LDL Cholesterol, Calc (0.0-131.0) mg/dL HDL Cholesterol (40.00-60.00) mg/dL Assessment and Plan Assessment: * 46-year-old female, with 2 week history of intermittent slurred speech. Examination revealed very mild intermittent slurring, and subjective decreased sensation for touch on the left side. Rule out stroke TIA. * Medication noncompliance, has stopped taking medication since August 2021 (due to losing PCP). * Hypothyroidism, severe * Diabetes, poorly controlled * Hypertension * Carpal tunnel syndrome * Morbid obesity * Hyperlipidemia Plan: * Carotid Doppler showed no significant hemodynamic stenosis. Antegrade flow in both vertebral arteries. * 2-D echo revealed fairly well preserved systolic function with EF 50-55%. Left atrial size is normal. Bubble study not performed due to body habitus. * MRI brain recommended, but because of morbid obesity, cannot have it performed in this hospital. She may have to have MRI done as an outpatient. * We will perform stroke workup, with carotid Doppler, 2-D echo with bubble study. * Fasting a.m. lipid panel with cholesterol 341, LDL 280, HDL 28 and triglycerides 163. Agree with starting high intensity statins, Lipitor 80 mg daily. * Hemoglobin A1c 9.7. Recommend optimize control of diabetes to target A1c < 7.0 * Patient given loading dose of aspirin 324 mg. Patient will be maintained on aspirin 81 mg daily. * B12 372, folate 9.5. Both normal. Treatment of hypothyroidism as per IM. * Neurologically clear for discharge.
== END 2021-12-09 16:38 | disposition home or self-care (01) | DRG 645 ==
LOC: EC 07:50 → 5NMEDONC 11:24
PROVIDERS: ADMIT Internal Medicine; ATTEND Internal Medicine
DX: E03.9 Hypothyroidism, unspecified (principal); E11.65 Type 2 diabetes mellitus with hyperglycemia; R47.1 Dysarthria and anarthria; R53.1 Weakness; R20.0 Anesthesia of skin; E66.01 Morbid (severe) obesity due to excess calories; Z68.36 Body mass index [BMI] 36.0-36.9, adult; I07.1 Rheumatic tricuspid insufficiency; G56.00 Carpal tunnel syndrome, unspecified upper limb; E78.5 Hyperlipidemia, unspecified; H93.13 Tinnitus, bilateral; I10 Essential (primary) hypertension; Z79.4 Long term (current) use of insulin; Z79.890 Hormone replacement therapy; Z79.899 Other long term (current) drug therapy; Z82.3 Family history of stroke; Z91.14 Patient's other noncompliance with medication regimen; Z88.0 Allergy status to penicillin; Z90.49 Acquired absence of other specified parts of digestive tract
CPT/HCPCS: 36415; 70450; 71046; 80048; 80053; 80061; 81001; 82533; 82607; 82746; 83036; 84439; 84443; 84484; 85025; 85610; 85730; 93005; 93306; 93880; 96374; 96375; 96376; 99285

== ENCOUNTER → 2022-01-29 | Outpatient (CLI) | payer OTHER ==
--- NOTE | 2022-01-29 16:11 | US ---
EXAMINATION TYPE: US thyroid st tissue head/neck DATE OF EXAM: 01/29/2022 COMPARISON: NONE CLINICAL HISTORY: E03.9 HYPOTHYROIDISM, UNSPECIFIED. Hypothyroid GLAND SIZE: Right Lobe: 4.8 x 1.6 x 1.7 cm Overall Parenchyma: heterogenous Left Lobe: 3.4 x 1.5 x 1.3 cm Overall Parenchyma: heterogeneous Isthmus Thickness: 0.2 cm NODULES RIGHT: # of nodules measured on right: 0 LEFT: # of nodules measured on left: 0 ISTHMUS: # of nodules measured in the isthmus: 0 Bilateral neck scanned, no evidence of lymphadenopathy. Heterogenous gland bilaterally, no evidence of nodules. IMPRESSION: No suspicious nodules.
== END | disposition home or self-care (01) ==
LOC: RADUSWWP 15:02
PROVIDERS: ATTEND Family Medicine
DX: E03.9 Hypothyroidism, unspecified (principal)
CPT/HCPCS: 76536

== ENCOUNTER 2022-09-16 22:28 | Emergency (ER) | payer BC, OTHER ==
[2022-09-16 22:39] VITALS: TEMP 97.7
[2022-09-17 00:16] LABS: Appearance,Urine Cloudy (Clear); Bacteria,Urine Rare /hpf; Bilirubin,Urine Negative (Negative); Blood,Urine Large (Negative); Calcium Oxalate Crystals,Urine Occasional /hpf; Color,Urine Yellow; Glucose,Urine (UA) Negative (Negative); Ketones,Urine Negative (Negative); Leukocyte Esterase,Urine Small (Negative); Mucus,Urine Rare /hpf; Nitrite,Urine Negative (Negative); Protein,Urine 2+ (Negative); RBC,Urine 114 /hpf (0-5); Specific Gravity,Urine 1.028 (1.001-1.035); Squamous Epithelial Cell,Urine 7 /hpf (0-4); Urobilinogen,Urine <2.0 mg/dL (<2.0); WBC,Urine 12 /hpf (0-5)
[2022-09-17] MEDS ORDERED: KETOROLAC 15 MG/ML 1 ML VIAL IM STA (00:16)
--- NOTE | 2022-09-17 01:39 | ED ---
Abdominal Pain HPI - General Chief Complaint: Abdominal Pain Stated Complaint: backpain Time Seen by Provider: 09/16/22 23:24 Source: patient Mode of arrival: ambulatory Limitations: no limitations - History of Present Illness Initial Comments: Patient is a 46-year-old female presenting with chief complaint of left-sided flank pain. Pain is been ongoing for one week, however today pain started getting worse. Pain wraps around to the front of the abdomen and down into the leg. Patient states that the pain feels similar to previous kidney stones. She denies any dysuria or hematuria, however states she is just coming off her menstrual cycle so it has been difficult to tell she is having hematuria. No fevers or chills. She Mitz to nausea with no vomiting. - Related Data Home Medications Medication Instructions Recorded Confirmed Albuterol Sulfate [Albuterol 2 puff PO RT-Q6H PRN 12/08/21 12/08/21 Sulfate Hfa] Cetirizine HCl 10 mg PO DAILY PRN 12/08/21 12/08/21 Naproxen [Naprosyn] 500 mg PO BID PRN 12/08/21 12/08/21 Previous Rx's Medication Instructions Recorded Atorvastatin [Lipitor] 80 mg PO HS #30 tab 12/09/21 Blood Sugar Diagnostic [Test 1 each AC-TID #90 strip 12/09/21 Strips] Insulin Aspart [NovoLOG Flexpen] 6 unit SQ AC-TID #2 each 12/09/21 Insulin Glargine,Hum.rec.anlog 50 unit SQ HS #5 each 12/09/21 [Lantus Solostar Pen] Levothyroxine Sodium [Synthroid] 176 mcg PO 0630 #30 tab 12/09/21 Metoprolol Succinate (ER) [Toprol 25 mg PO DAILY #30 tab 12/09/21 XL] Syr,Ndl,Insulin,1Ml-Sharps Bin 1 syr INJ DIRECTED #1 each 12/09/21 [Ultiguard Safepack 1Ml 31G 8Mm] Syringe-Needle,Insulin,0.5 ml 1 syr SQ DIRECTED #90 each 12/09/21 [Insulin Syringe 29G 1/2" 0.5ML] amLODIPine [Norvasc] 5 mg PO DAILY #30 tab 12/09/21 lisinopriL [Zestril] 5 mg PO DAILY #30 tab 12/09/21 Ketorolac [Toradol] 10 mg PO Q6HR PRN #12 tab 09/17/22 Ondansetron Odt [Zofran Odt] 4 mg PO Q8HR PRN #20 tab 09/17/22 Allergies Allergy/AdvReac Type Severity Reaction Status Date / Time Penicillins Allergy Rash/Hives Verified 09/16/22 22:39 Review of Systems ROS Statement: Those systems with pertinent positive or pertinent negative responses have been documented in the HPI. ROS Other: All systems not noted in ROS Statement are negative. Past Medical History Past Medical History: Diabetes Mellitus, Hypertension, Thyroid Disorder Additional Past Medical History / Comment(s): obesity History of Any Multi-Drug Resistant Organisms: None Reported Past Surgical History: Section, Cholecystectomy Past Psychological History: No Psychological Hx Reported Smoking Status: Never smoker Past Alcohol Use History: None Reported Past Drug Use History: None Reported General Exam Limitations: no limitations General appearance: alert, in no apparent distress Head exam: Present: atraumatic, normocephalic, normal inspection Eye exam: Present: normal appearance, EOMI. Absent: scleral icterus, periorbital swelling Neck exam: Present: normal inspection, full ROM Respiratory exam: Present: normal lung sounds bilaterally. Absent: respiratory distress, wheezes, rales, rhonchi, stridor Cardiovascular Exam: Present: regular rate, normal rhythm, normal heart sounds. Absent: systolic murmur, diastolic murmur, rubs, gallop, clicks Back exam: Present: normal inspection, paraspinal tenderness Neurological exam: Present: alert, oriented X3, CN II-XII intact Psychiatric exam: Present: normal affect, normal mood Skin exam: Present: warm, dry, intact, normal color. Absent: rash Course Vital Signs 09/16/22 09/17/22 09/17/22 22:33 02:32 04:14 Temperature 97.7 F Pulse Rate 79 66 68 Respiratory 12 16 16 Rate Blood Pressure 165/81 157/82 156/85 O2 Sat by Pulse 98 95 97 Oximetry Medical Decision Making - Medical Decision Making Was pt. sent in by a medical professional or institution (, PA, [employer], urgent care, hospital, or jail...) When possible be specific @ -No Did you speak to anyone other than the patient for history (EMS, parent, family, police, friend...)? What history was obtained from this source @ -No Did you review nursing and triage notes (agree or disagree)? Why? @ -I reviewed and agree with nursing and triage notes Were old charts reviewed (outside hosp., previous admission, EMS record, old EKG, old radiological studies, urgent care reports/EKG's, jail records)? Report findings @ -No old charts were reviewed Differential Diagnosis (chest pain, altered mental status, abdominal pain women, abdominal pain men, vaginal bleeding, weakness, fever, dyspnea, syncope, headache, dizziness, GI bleed, back pain, seizure, CVA, palpatations, mental health, musculoskeletal)? @ - MDM Differential Back Pain: Strain, zoster, cauda equina syndrome, epidural abscess, vertebral osteomyelitis, discitis, fracture, subluxation, disc herniation, DJD, spinal stenosis, dissection, AAA, pancreatitis, peptic ulcer disease, pyelonephritis, kidney stone this is not meant to be an all-inclusive list. EKG interpreted by me (3pts min.). @ -As above X-rays interpreted by me (1pt min.). @ -None done CT interpreted by me (1pt min.). @ -CT shows 8 millimeter stone within the proximal left ureter with moderate hydronephrosis U/S interpreted by me (1pt. min.). @ -None done What testing was considered but not performed or refused? (CT, X-rays, U/S, labs)? Why? @ -None What meds were considered but not given or refused? Why? @ -None Did you discuss the management of the patient with other professionals (professionals i.e. , PA, [employer], lab, RT, psych nurse, director social, public relations, teacher, training systems officer, rehabilitation case coordinator)? Give summary @ -No Was smoking cessation discussed for >3mins.? @ -No Was critical care preformed (if so, how long)? @ -No Were there social determinants of health that impacted care today? How? (Homelessness, low income, unemployed, alcoholism, drug addiction, transportation, low edu. Level, literacy, decrease access to med. care, longterm, rehab)? @ -No Was there de-escalation of care discussed even if they declined (Discuss DNR or withdrawal of care, Hospice)? DNR status @ -No What co-morbidities impacted this encounter? (DM, HTN, Smoking, COPD, CAD, Cancer, CVA, ARF, Chemo, Hep., AIDS, mental health diagnosis, sleep apnea, morbid obesity)? @ -None Was patient admitted / discharged? Hospital course, mention meds given and route, prescriptions, significant lab abnormalities, going to OR and other pertinent info. @ -Patient is a 46-year-old female presenting with chief complaint of back pain. Physical examination is unremarkable. Urine shows large amount of blood, consistent with kidney stone. Computed tomography scan shows 8 mm stone in the left proximal ureter. Patient is resting comfortably after Toradol. She is educated on these findings and will follow up with urology outpatient. Follow-up with PCP. Report back to ER with any new or worsening symptoms. Discussed return parameters and answered all questions. Patient conveyed verbal understanding and agreed to the plan. I discussed this case in detail with my attending Dr. Coleman Undiagnosed new problem with uncertain prognosis? @ -No Drug Therapy requiring intensive monitoring for toxicity (Heparin, Nitro, Insulin, Cardizem)? @ -No Were any procedures done? @ -No Diagnosis/symptom? @ -Nephrolithiasis Acute, or Chronic, or Acute on Chronic? @ -Acute Uncomplicated (without systemic symptoms) or Complicated (systemic symptoms)? @ -Uncomplicated Side effects of treatment? @ -No Exacerbation, Progression, or Severe Exacerbation? @ -No Poses a threat to life or bodily function? How? (Chest pain, [place], NH, pneumonia, PE, COPD, DKA, ARF, appy, cholecystitis, CVA, Diverticulitis, Homicidal, Suicidal, threat to staff... and all critical care pts) @ -No - Lab Data Lab Results 09/16/22 Range/Units 23:53 Urine Color Yellow Urine Appearance Cloudy H (Clear) Urine pH 6.0 (5.0-8.0) Ur Specific [place] 1.028 (1.001-1.035) Urine Protein 2+ H (Negative) Urine Glucose (UA) Negative (Negative) Urine Ketones Negative (Negative) Urine Blood Large H (Negative) Urine Nitrite Negative (Negative) Urine Bilirubin Negative (Negative) Urine Urobilinogen <2.0 (<2.0) mg/dL Ur Leukocyte Esterase Small H (Negative) Urine RBC 114 H (0-5) /hpf Urine WBC 12 H (0-5) /hpf Ur Squamous Epith Cells 7 H (0-4) /hpf Calcium Oxalate Crystal Occasional H (None) /hpf Urine Bacteria Rare H (None) /hpf Urine Mucus Rare H (None) /hpf Disposition Clinical Impression: Kidney stone Disposition: HOME SELF-CARE Condition: Good Instructions (If sedation given, give patient instructions): Kidney Stones (ED) Additional Instructions: Follow-up with PCP and urology. Report back to ER with any new or worsening symptoms. Prescriptions: Ketorolac [Toradol] 10 mg PO Q6HR PRN #12 tab PRN Reason: Pain Ondansetron Odt [Zofran Odt] 4 mg PO Q8HR PRN #20 tab PRN Reason: Nausea Is patient prescribed a controlled substance at d/c from ED?: No Referrals: Deborah Garsia MD [Primary Care Provider] - 1-2 days Bulmaro Pappas MD [STAFF PHYSICIAN] - 1-2 days Time of Disposition: 04:08
--- NOTE | 2022-09-17 02:10 | CT ---
EXAM: CT Abdomen and Pelvis Without Intravenous Contrast CLINICAL HISTORY: ITS.REASON CT Reason: L flank pain TECHNIQUE: Axial computed tomography images of the abdomen and pelvis without intravenous contrast. CTDI is 36.5 mGy and DLP is 2289 mGy-cm. This CT exam was performed using one or more of the following dose reduction techniques: automated exposure control, adjustment of the mA and/or kV according to patient size, and/or use of iterative reconstruction technique. COMPARISON: No relevant prior studies available. FINDINGS: ABDOMEN: Liver: Unremarkable. Gallbladder and bile ducts: Cholecystectomy. Pancreas: Unremarkable. Spleen: Unremarkable. Adrenals: Unremarkable. Kidneys and ureters: There is an 8 mm stone within the proximal left ureter with moderate upstream hydronephrosis. Stomach and bowel: Unremarkable. PELVIS: Appendix: No findings to suggest acute appendicitis. Bladder: Unremarkable. Reproductive: Bilateral tubal ligation clips in place. ABDOMEN and PELVIS: Intraperitoneal space: Unremarkable. No free air. No significant fluid collection. Bones/joints: No acute fracture. Soft tissues: Unremarkable. Vasculature: Unremarkable. Lymph nodes: Unremarkable. IMPRESSION: There is an 8 mm stone within the proximal left ureter with moderate upstream hydronephrosis.
[2022-09-17] MEDS ORDERED: TAMSULOSIN 0.4 MG CAP.ER.24H PO STA (02:12)
[2022-09-17 02:34] VITALS: RESP 16
[2022-09-17 04:17] VITALS: BP 156/85; PULSE 68
== END 2022-09-17 04:21 | disposition home or self-care (01) ==
LOC: EC 22:28
DX: N13.2 Hydronephrosis with renal and ureteral calculous obstruction (principal); E11.9 Type 2 diabetes mellitus without complications; I10 Essential (primary) hypertension; E66.9 Obesity, unspecified; Z68.43 Body mass index [BMI] 50.0-59.9, adult; Z88.0 Allergy status to penicillin; Z90.49 Acquired absence of other specified parts of digestive tract; Z79.899 Other long term (current) drug therapy
CPT/HCPCS: 81001; 74176; 99284; 96372; J1885

== ENCOUNTER 2022-10-08 21:03 | Emergency (ER) | payer BC, OTHER ==
[2022-10-08] MEDS ORDERED: ONDANSETRON 4 MG/2 ML VIAL IVP STA (21:32)
[2022-10-08] MEDS ORDERED: MORPHINE SULFATE 4 MG/ML SYRINGE IVP STA (21:32)
[2022-10-08] MEDS ORDERED: SODIUM CHLORIDE 0.9% 1,000 ML IV STA (21:32)
[2022-10-08] MEDS ORDERED: KETOROLAC 15 MG/ML 1 ML VIAL IVP STA (21:32)
--- NOTE | 2022-10-08 21:32 | ED ---
Abdominal Pain HPI - General Chief Complaint: Abdominal Pain Stated Complaint: Kidney Stone Time Seen by Provider: 10/08/22 21:32 Source: patient, RN notes reviewed, old records reviewed Mode of arrival: ambulatory Limitations: no limitations - History of Present Illness Initial Comments: This 46-year-old female to the ER today. She presents today for evaluation of recheck. Patient states she kidney stone diagnosis about a week ago, she notes she has not passed this kidney stone but is left-sided and cause her severe pain she woke up this afternoon from a nap with severe significant pain is also a blood in the urine. No other new complaints no fevers patient's pain did stop prior to arrival until today MD Complaint: abdominal pain, flank pain (Left-sided) -: hour(s) Location: suprapubic, L flank Radiation: suprapubic, L flank Migration to: suprapubic, L flank Severity: severe Severity scale (1-10): 10 Quality: stabbing, sharp Consistency: constant Improves With: nothing Worsens With: nothing Associated Symptoms: nausea, vomiting Treatments Prior to Arrival: other (0) - Related Data Home Medications Medication Instructions Recorded Confirmed Albuterol Sulfate [Albuterol 2 puff PO RT-Q6H PRN 12/08/21 12/08/21 Sulfate Hfa] Cetirizine HCl 10 mg PO DAILY PRN 12/08/21 12/08/21 Naproxen [Naprosyn] 500 mg PO BID PRN 12/08/21 12/08/21 Previous Rx's Medication Instructions Recorded Atorvastatin [Lipitor] 80 mg PO HS #30 tab 12/09/21 Blood Sugar Diagnostic [Test 1 each AC-TID #90 strip 12/09/21 Strips] Insulin Aspart [NovoLOG Flexpen] 6 unit SQ AC-TID #2 each 12/09/21 Insulin Glargine,Hum.rec.anlog 50 unit SQ HS #5 each 12/09/21 [Lantus Solostar Pen] Levothyroxine Sodium [Synthroid] 176 mcg PO 0630 #30 tab 12/09/21 Metoprolol Succinate (ER) [Toprol 25 mg PO DAILY #30 tab 12/09/21 XL] Syr,Ndl,Insulin,1Ml-Sharps Bin 1 syr INJ DIRECTED #1 each 12/09/21 [Ultiguard Safepack 1Ml 31G 8Mm] Syringe-Needle,Insulin,0.5 ml 1 syr SQ DIRECTED #90 each 12/09/21 [Insulin Syringe 29G 1/2" 0.5ML] amLODIPine [Norvasc] 5 mg PO DAILY #30 tab 12/09/21 lisinopriL [Zestril] 5 mg PO DAILY #30 tab 12/09/21 Ketorolac [Toradol] 10 mg PO Q6HR PRN #12 tab 09/17/22 Ondansetron Odt [Zofran Odt] 4 mg PO Q8HR PRN #20 tab 09/17/22 Allergies Allergy/AdvReac Type Severity Reaction Status Date / Time Penicillins Allergy Rash/Hives Verified 10/08/22 21:22 Review of Systems ROS Statement: Those systems with pertinent positive or pertinent negative responses have been documented in the HPI. ROS Other: All systems not noted in ROS Statement are negative. Past Medical History Past Medical History: Diabetes Mellitus, Hypertension, Thyroid Disorder Additional Past Medical History / Comment(s): obesity, kidney stones History of Any Multi-Drug Resistant Organisms: None Reported Past Surgical History: Section, Cholecystectomy Past Psychological History: No Psychological Hx Reported Smoking Status: Never smoker Past Alcohol Use History: None Reported Past Drug Use History: None Reported General Exam Limitations: no limitations General appearance: alert, in no apparent distress Head exam: Present: atraumatic, normocephalic, normal inspection Eye exam: Present: normal appearance, PERRL, EOMI. Absent: scleral icterus, conjunctival injection, periorbital swelling ENT exam: Present: normal exam, mucous membranes moist Neck exam: Present: normal inspection. Absent: tenderness, meningismus, lymphadenopathy Respiratory exam: Present: normal lung sounds bilaterally. Absent: respiratory distress, wheezes, rales, rhonchi, stridor Cardiovascular Exam: Present: regular rate, normal rhythm, normal heart sounds. Absent: systolic murmur, diastolic murmur, rubs, gallop, clicks GI/Abdominal exam: Present: soft, normal bowel sounds. Absent: distended, tenderness, guarding, rebound, rigid Extremities exam: Present: normal inspection, full ROM, normal capillary refill. Absent: tenderness, pedal edema, joint swelling, calf tenderness Back exam: Present: normal inspection Neurological exam: Present: alert, oriented X3, CN II-XII intact Psychiatric exam: Present: normal affect, normal mood Skin exam: Present: warm, dry, intact, normal color. Absent: rash Course Vital Signs 10/08/22 10/08/22 10/08/22 21:19 21:54 23:40 Temperature 98.2 F 97.4 F L Pulse Rate 76 78 85 Respiratory 20 16 16 Rate Blood Pressure 152/81 170/124 131/68 O2 Sat by Pulse 98 95 94 L Oximetry - Reevaluation(s) Reevaluation #1: 10/08/22 23:52 Medical records reviewed Reevaluation #2: 10/08/22 23:52 patient has pain control still has persistent nausea Reevaluation #3: 10/08/22 23:53 Patient informed results questions answered Reevaluation #4: 10/08/22 23:53 Was pt. sent in by a medical professional or institution? @ -no Did you speak to anyone other than the patient for history? @ -no Did you review nursing and triage notes? @ -agree Were old charts reviewed? @ -yes patient's prior ER visit with positive kidney stone found Differential Diagnosis? @ -prior EKG interpreted by me (3pts min.)? @ -yes X-rays interpreted by me (1pt min.)? @ -no CT interpreted by me (1pt min.)? @ -no U/S interpreted by me (1pt. min.)? @ -no What testing was considered but not performed? (CT, X-rays, U/S, labs)? Why? @ -no What meds were considered but not given? Why? @ -no Did you discuss the management of the patient with other professionals? @ -no Did you reconcile home meds? @ -no Was smoking cessation discussed for >3mins.? @ -no Was critical care preformed (if so, how long)? @ -no Were there social determinants of health that impacted care today? How? (Homelessness, low income, unemployed, alcoholism, drug addiction, transportation, low edu. Level, literacy, decrease access to med. care, snf, rehab)? @ -no Was there de-escalation of care discussed even if they declined? (Discuss DNR or withdrawal of care, Hospice)? @ -no What co-morbidities impacted this encounter? (DM, HTN, Smoking, COPD, CAD, Cancer, CVA, Hep., AIDS, mental health diagnosis, sleep apnea, morbid obesity)? @ -none Was patient admitted / discharged? @ -46 female to the emergency department, this Patient with persistent kidney stone left ureteral, UVJ, patient has pain control can be discharged home follow-up with urology Discharged Undiagnosed new problem with uncertain prognosis? @ -no Drug Therapy requiring intensive monitoring for toxicity (Heparin, Nitro, Insulin, Cardizem)? @ -no Were any procedures done? @ -no Diagnosis/symptom? @ -Left Ureteral Calculus Acute, or Chronic, or Acute on Chronic? @ -acute Uncomplicated (without systemic symptoms) or Complicated (systemic symptoms)? @ -uncomplicated Side effects of treatment? @ -no Exacerbation, Progression, or Severe Exacerbation] @ -no Poses a threat to life or bodily function? @ -no Reevaluation #5: 10/08/22 23:53 Differential Abdominal Pain Women: Appendicitis, Cholecystitis, diverticulosis, ischemic bowel, pancreatitis, hepatitis, UTI, gastroenteritis, AAA, incarcerated hernia, bowel obstruction, constipation, inflammatory bowel, hepatitis, peptic ulcer disease, splenic infarction, perforated viscus, vulvitis, ovarian torsion, PID, kidney stone, placenta abruption, this is not meant to be an all-inclusive list Medical Decision Making - Medical Decision Making 46 female DF for evaluation pain left flank pain severe history of kidney stone patient's kidney stone is 1 cm has migrated from the left male pelvis to her left UVJ. Patient given Flomax and pain control here in the ER and can be discharged home - Lab Data Result diagrams: 10/08/22 21:51 10/08/22 21:51 Lab Results 10/08/22 10/08/22 Range/Units 21:51 21:51 WBC 8.8 (3.8-10.6) k/uL RBC 4.85 (3.80-5.40) m/uL Hgb 13.8 (11.4-16.0) gm/dL Hct 43.6 (34.0-46.0) % MCV 89.9 (80.0-100.0) fL MCH 28.4 (25.0-35.0) pg MCHC 31.6 (31.0-37.0) g/dL RDW 14.2 (11.5-15.5) % Plt Count 290 (150-450) k/uL MPV 7.4 Neutrophils % 63 % Lymphocytes % 27 % Monocytes % 5 % Eosinophils % 3 % Basophils % 1 % Neutrophils # 5.6 (1.3-7.7) k/uL Lymphocytes # 2.4 (1.0-4.8) k/uL Monocytes # 0.4 (0-1.0) k/uL Eosinophils # 0.3 (0-0.7) k/uL Basophils # 0.1 (0-0.2) k/uL Sodium 142 (137-145) mmol/L Potassium 3.7 (3.5-5.1) mmol/L Chloride 101 (98-107) mmol/L Carbon Dioxide 29 (22-30) mmol/L Anion Gap 12 mmol/L BUN 18 H (7-17) mg/dL Creatinine 1.14 H (0.52-1.04) mg/dL Est GFR (CKD-EPI)AfAm 67 (>60 ml/min/1.73 sqM) Est GFR (CKD-EPI)NonAf 58 (>60 ml/min/1.73 sqM) Glucose 147 H (74-99) mg/dL Calcium 9.9 (8.4-10.2) mg/dL Total Bilirubin 1.6 H (0.2-1.3) mg/dL AST 26 (14-36) U/L ALT 22 (4-34) U/L Alkaline Phosphatase 75 (38-126) U/L Total Protein 8.2 (6.3-8.2) g/dL Albumin 4.5 (3.5-5.0) g/dL Amylase 60 (30-110) U/L Lipase 261 (23-300) U/L - Radiology Data Radiology results: report reviewed (CT head and pelvis does show 0.9 cm left UVJ kidney stone), image reviewed Disposition Clinical Impression: Kidney stone, Left ureteral stone, Abdominal pain Disposition: HOME SELF-CARE Condition: Good Instructions (If sedation given, give patient instructions): Kidney Stones (ED) Is patient prescribed a controlled substance at d/c from ED?: No Referrals: Deborah Garsia MD [Primary Care Provider] - 1-2 days Time of Disposition: 23:30
[2022-10-08 21:58] VITALS: RESP 16
[2022-10-08 22:07] LABS: Basophils # (A) 0.1 k/uL (0-0.2); Basophils % (A) 1 %; Eosinophils # (A) 0.3 k/uL (0-0.7); Eosinophils % (A) 3 %; HCT 43.6 % (34.0-46.0); HGB 13.8 gm/dL (11.4-16.0); Lymphocytes # (A) 2.4 k/uL (1.0-4.8); Lymphocytes % (A) 27 %; MCH 28.4 pg (25.0-35.0); MCHC 31.6 g/dL (31.0-37.0); MCV 89.9 fL (80.0-100.0); Mean Platelet Volume 7.4; Monocytes # (A) 0.4 k/uL (0-1.0); Monocytes % (A) 5 %; Neutrophils # (A) 5.6 k/uL (1.3-7.7); Neutrophils % (A) 63 %; Platelet Count 290 k/uL (150-450); RBC 4.85 m/uL (3.80-5.40); RDW 14.2 % (11.5-15.5); WBC 8.8 k/uL (3.8-10.6)
[2022-10-08 22:15] LABS: Albumin 4.5 g/dL (3.5-5.0); Calcium 9.9 mg/dL (8.4-10.2); Potassium 3.7 mmol/L (3.5-5.1); Total Bilirubin 1.6 mg/dL (0.2-1.3); Total Protein 8.2 g/dL (6.3-8.2)
--- NOTE | 2022-10-08 23:06 | CT ---
EXAMINATION TYPE: CT abdomen pelvis wo con DATE OF EXAM: 10/08/2022 COMPARISON: 09/17/2022 INDICATION: Abdomen pain, kidney stones DLP: 2075.2 mGycm, Automated exposure control for dose reduction was used. CONTRAST: 0 mL of Isovue 300. Study performed without Oral Contrast TECHNIQUE: Axial images were obtained from above the diaphragm to the pubic rami in the axial plane a t 5 mm thick sections. Reconstructed images are reviewed on the computer in the coronal plane. FINDINGS: Limited CT sections are obtained the lung bases. The lung bases are clear. CT ABDOMEN: The left ureteral stone has descended from near the ureteral pelvic junction to nearly th e left ureterovesical junction. Hydroureter remains present throughout its visualized course. Moderat e to marked hydronephrosis remains present. Liver: Normal Spleen: Normal Pancreas: Normal Adrenal glands: The adrenal glands are normal. Gallbladder: Surgically absent Right Kidney: No masses are evident. No hydronephrosis is present. No cysts are present. Abnormal Left kidney is discussed above. Aorta: Minimal Vascular calcification is within the aorta. Inferior vena cava: Normal. CT PELVIS: Loops of bowel within the abdomen and pelvis are normal. This study is without oral contrast limi ting bowel evaluation Appendix: Normal as visualized. Urinary bladder: Decompressed with limited evaluation Genitourinary structures: Uterus appears unremarkable. Adnexa are normal. Surgical clips are at the b road ligaments. Osseous structures: No suspicious lytic or sclerotic lesions. IMPRESSIONS: 1. Previous 0.9 cm proximal left ureteral stone has descended to the distal left ureter above the ur eterovesical junction. Prominent hydronephrosis and hydroureter remains present.
[2022-10-08 23:41] VITALS: BP 131/68; PULSE 85; TEMP 97.4
[2022-10-08] MEDS ORDERED: IBUPROFEN 600 MG STARTER PACK 4 TAB BTL PO STA (23:48)
[2022-10-08] MEDS ORDERED: ACET/COD 300 MG/30 MG STARTER PACK 6 TAB BTL PO STA (23:48)
[2022-10-08] MEDS ORDERED: ONDANSETRON 4 MG ODT STARTER PACK 2 TAB BTL PO STA (23:48)
== END 2022-10-09 00:04 | disposition home or self-care (01) ==
LOC: EC 21:03
DX: N13.2 Hydronephrosis with renal and ureteral calculous obstruction (principal); E11.9 Type 2 diabetes mellitus without complications; I10 Essential (primary) hypertension; Z88.0 Allergy status to penicillin
CPT/HCPCS: 36415; 80053; 82150; 83690; 85025; 74176; 99285; 96374; 96375 ×2; 96361 ×2; J2270; J2405; J1885; S0119

== ENCOUNTER → 2023-10-22 | Outpatient (CLI) | payer BC, OTHER ==
[2023-10-22 13:21] LABS: Basophils # (A) 0.08 X 10*3/uL (0.00-0.10); Basophils % (A) 1.1 %; Eosinophils # (A) 0.16 X 10*3/uL (0.04-0.35); Eosinophils % (A) 2.2 %; HCT 43.6 % (37.2-46.3); HGB 13.5 g/dL (12.0-15.0); Lymphocytes # (A) 2.09 X 10*3/uL (0.90-5.00); Lymphocytes % (A) 28.3 %; MCH 29.4 pg (27.0-32.0); Mean Platelet Volume 10.2 FL (9.5-12.2); Monocytes # (A) 0.42 X 10*3/uL (0.20-1.00); Monocytes % (A) 5.7 %; NRBC Per 100 WBC 0 X 10*3/uL (0.00-0.01); Neutrophils # (A) 4.61 X 10*3/uL (1.80-7.70); Neutrophils % (A) 62.4 %; Platelet Count 253 X 10*3/uL (140-440); RBC 4.59 X 10*6/uL (4.10-5.20); RDW 14.6 % (11.5-14.5); WBC 7.38 X 10*3/uL (4.50-10.00)
[2023-10-22 13:55] LABS: Chol/HDL Ratio 6.63 Ratio
[2023-10-22 13:56] LABS: LDL Cholesterol,Calculated 145.9 mg/dL (0.0-131.0); T4, Free (Free Thyroxine) 0.25 ng/dL (0.80-1.80)
[2023-10-22 14:03] LABS: ALT 18 U/L (8-44); AST 27 U/L (13-35); Albumin 4.3 g/dL (3.8-4.9); Albumin/Globulin Ratio 1.39 Ratio (1.60-3.17); Alkaline Phosphatase 72 U/L (41-126); Blood Urea Nitrogen 12.6 mg/dL (9.0-27.0); Calcium 9.3 mg/dL (8.7-10.3); Carbon Dioxide 25.8 mmol/L (21.6-31.8); Chloride 104 mmol/L (96-109); Globulin 3.1 g/dL (1.6-3.3); Glucose 173 mg/dL (70-110); Potassium 4.8 mmol/L (3.5-5.5); Sodium 143 mmol/L (135-145); Total Bilirubin 1.3 mg/dL (0.3-1.2); Total Protein 7.4 g/dL (6.2-8.2)
== END | disposition home or self-care (01) ==
LOC: LABWHC1 08:49
PROVIDERS: ATTEND Family Medicine
DX: I10 Essential (primary) hypertension (principal); F41.8 Other specified anxiety disorders; E11.65 Type 2 diabetes mellitus with hyperglycemia
CPT/HCPCS: 36415; 80053; 80061; 82043; 82306; 82570; 82607; 82746; 84439; 84443; 85025

== ENCOUNTER 2024-05-02 13:54 | Emergency (ER) | payer BC, OTHER ==
[2024-05-02 13:59] VITALS: RESP 16
--- NOTE | 2024-05-02 14:41 | ED ---
General Adult HPI - General Chief complaint: Dizziness Stated complaint: Dizziness Time Seen by Provider: 05/02/24 14:01 Source: patient, RN notes reviewed Mode of arrival: ambulatory Limitations: no limitations - History of Present Illness Initial comments: This a 48-year-old female with history of hypothyroidism, T2DM, vertigo, and hypertension presented to emergency room via referral from urgent care for complaint of abdominal pain, diarrhea for the past 3 days. Patient states that she has been experiencing intermittent dizziness that is exacerbated upon standing and with rapid head movements. States that she is followed with ENT specialist outpatient where she was recently diagnosed with vertigo. Patient states that she has been experiencing diffuse abdominal pain and diarrhea over the past few days. Denies urinary changes, hematochezia, melena, fevers, chills. endorses nausea with no vomiting. denies cough, congestion, chest pain, shortness of breath, rhinorrhea. states that her abdominal pain has improved over the last few days. previous cholecystectomy. - Related Data Home Medications Medication Instructions Recorded Confirmed Atorvastatin [Lipitor] 40 mg PO DAILY 05/02/24 05/02/24 Dulaglutide [Trulicity] 0.75 mg SQ TU 05/02/24 05/02/24 Levothyroxine Sodium [Synthroid] 100 mcg PO DAILY 05/02/24 05/02/24 lisinopriL [Zestril] 10 mg PO DAILY 05/02/24 05/02/24 Previous Rx's Medication Instructions Recorded amLODIPine [Norvasc] 5 mg PO DAILY #30 tab 12/09/21 Allergies Allergy/AdvReac Type Severity Reaction Status Date / Time Penicillins Allergy Rash/Hives Verified 05/02/24 14:47 Review of Systems ROS Statement: Those systems with pertinent positive or pertinent negative responses have been documented in the HPI. ROS Other: All systems not noted in ROS Statement are negative. Past Medical History Past Medical History: Diabetes Mellitus, Hypertension, Thyroid Disorder Additional Past Medical History / Comment(s): obesity, kidney stones History of Any Multi-Drug Resistant Organisms: None Reported Past Surgical History: Section, Cholecystectomy Past Psychological History: No Psychological Hx Reported Smoking Status: Never smoker Past Alcohol Use History: None Reported Past Drug Use History: None Reported General Exam Limitations: no limitations Eye exam: Present: normal appearance, PERRL, EOMI. Absent: scleral icterus, conjunctival injection, periorbital swelling ENT exam: Present: normal exam, mucous membranes moist Neck exam: Present: normal inspection. Absent: tenderness, meningismus, lymphadenopathy Respiratory exam: Present: normal lung sounds bilaterally. Absent: respiratory distress, wheezes, rales, rhonchi, stridor Cardiovascular Exam: Present: regular rate, normal rhythm, normal heart sounds. Absent: systolic murmur, diastolic murmur, rubs, gallop, clicks GI/Abdominal exam: Present: soft, normal bowel sounds. Absent: distended, tenderness, guarding, rebound, rigid Extremities exam: Present: normal inspection, full ROM, normal capillary refill. Absent: tenderness, pedal edema, joint swelling, calf tenderness Neurological exam: Present: alert, oriented X3, CN II-XII intact Course Vital Signs 05/02/24 05/02/24 13:55 16:01 Temperature 98.3 F 98.4 F Pulse Rate 74 61 Respiratory 16 16 Rate Blood Pressure 145/99 131/80 O2 Sat by Pulse 99 97 Oximetry Medical Decision Making - Medical Decision Making Was pt. sent in by a medical professional or institution (, PA, WEALTH MANAGEMENT ADVISOR, urgent care, hospital, or fci...) When possible be specific @ -No Did you speak to anyone other than the patient for history (EMS, parent, family, police, friend...)? What history was obtained from this source @ -No Did you review nursing and triage notes (agree or disagree)? Why? @ -I reviewed and agree with nursing and triage notes Were old charts reviewed (outside hosp., previous admission, EMS record, old EKG, old radiological studies, urgent care reports/EKG's, fci records)? Report findings @ -No old charts were reviewed Differential Diagnosis (chest pain, altered mental status, abdominal pain women, abdominal pain men, vaginal bleeding, weakness, fever, dyspnea, syncope, headache, dizziness, GI bleed, back pain, seizure, CVA, palpatations, mental health, musculoskeletal)? @ -Differential Abdominal Pain Women: Appendicitis, Cholecystitis, diverticulosis, ischemic bowel, pancreatitis, hepatitis, UTI, gastroenteritis, AAA, incarcerated hernia, bowel obstruction, constipation, inflammatory bowel, hepatitis, peptic ulcer disease, splenic infarction, perforated viscus, vulvitis, ovarian torsion, PID, kidney stone, placenta abruption, this is not meant to be an all-inclusive list EKG interpreted by me (3pts min.). @ -Completed at 1423 sinus rhythm with a ventricular rate of 67, [place] interval 181 , QRS 98, QTc 397. X-rays interpreted by me (1pt min.). @ -None done CT interpreted by me (1pt min.). @ -None done U/S interpreted by me (1pt. min.). @ -None done What testing was considered but not performed or refused? (CT, X-rays, U/S, labs)? Why? @ -None What meds were considered but not given or refused? Why? @ -None Did you discuss the management of the patient with other professionals (prof ivanna i.e. , PA, WEALTH MANAGEMENT ADVISOR, lab, RT, psych nurse, public health social worker, pelletising extruder operator, teacher, customs patrol officer, case loader operator)? Give summary @ -No Was smoking cessation discussed for >3mins.? @ -No Was critical care preformed (if so, how long)? @ -No Were there social determinants of health that impacted care today? How? (Homelessness, low income, unemployed, alcoholism, drug addiction, transportation, low edu. Level, literacy, decrease access to med. care, longterm, rehab)? @ -No Was there de-escalation of care discussed even if they declined (Discuss DNR or withdrawal of care, Hospice)? DNR status @ -No What co-morbidities impacted this encounter? (DM, HTN, Smoking, COPD, CAD, Cancer, CVA, ARF, Chemo, Hep., AIDS, mental health diagnosis, sleep apnea, morbid obesity)? @ -None Was patient admitted / discharged? Hospital course, mention meds given and route, prescriptions, significant lab abnormalities, going to OR and other pertinent info. @ -Discharge. 40-year-old female presenting with abdominal pain, diarrhea, dizziness. Neurological examination no acute deficits. Patient's initial vitals are mildly hypertensive with a blood pressure 145/99. Abdominal examination unremarkable for signs of tenderness. Patient is provided with IV fluids and Zofran pending laboratory results. Patient was offered medication for dizziness however states that this is intermittent and exacerbated upon standing and is declining medications for this. States that she has been experiencing intermittent dizziness for the past few months and the symptoms are not new, initially tells her ENT specialist outpatient that has been managing this complaint. Patient's labs remarkable for elevated bilirubin at 2.4. Urinalysis no signs of infection, consistent with contamination including moderate leukocyte esterase and 11 squamous epithelial cells. Patient is provided with dose of Toradol for headache and instructed to follow-up outpatient with GI evaluation. Additionally, recommend that she have repeat lab draw for evaluation of mildly elevated bilirubin. All questions have been answered at bedside strict return parameters have discussed with the patient she is advised understanding. Case discussed with Dr. Harrington Undiagnosed new problem with uncertain prognosis? @ -No Drug Therapy requiring intensive monitoring for toxicity (Heparin, Nitro, Insulin, Cardizem)? @ -No Were any procedures done? @ -No Diagnosis/symptom? @ -Diarrhea, vertigo, nausea and vomiting Acute, or Chronic, or Acute on Chronic? @ -Acute Uncomplicated (without systemic symptoms) or Complicated (systemic symptoms)? @ -Uncomplicated Side effects of treatment? @ -No Exacerbation, Progression, or Severe Exacerbation? @ -No Poses a threat to life or bodily function? How? (Chest pain, [place], [place], pneumonia, PE, COPD, DKA, ARF, appy, cholecystitis, CVA, Diverticulitis, Homicidal, Suicidal, threat to staff... and all critical care pts) @ -No - Lab Data Result diagrams: 05/02/24 14:53 05/02/24 14:53 Lab Results 05/02/24 05/02/24 05/02/24 Range/Units 14:53 14:53 14:53 WBC 7.2 (3.8-10.6) k/uL RBC 4.56 (3.80-5.40) m/uL Hgb 13.5 (11.4-16.0) gm/dL Hct 42.3 (34.0-46.0) % MCV 92.7 (80.0-100.0) fL MCH 29.5 (25.0-35.0) pg MCHC 31.9 (31.0-37.0) g/dL RDW 15.0 (11.5-15.5) % Plt Count 224 (150-450) k/uL MPV 7.3 Neutrophils % 65 % Lymphocytes % 24 % Monocytes % 5 % Eosinophils % 3 % Basophils % 1 % Neutrophils # 4.7 (1.3-7.7) k/uL Lymphocytes # 1.8 (1.0-4.8) k/uL Monocytes # 0.4 (0-1.0) k/uL Eosinophils # 0.2 (0-0.7) k/uL Basophils # 0.1 (0-0.2) k/uL Sodium 140 (137-145) mmol/L Potassium 3.8 (3.5-5.1) mmol/L Chloride 101 (98-107) mmol/L Carbon Dioxide 29 (22-30) mmol/L Anion Gap 10 mmol/L BUN 11 (7-17) mg/dL Creatinine 0.94 (0.52-1.04) mg/dL Est GFR (CKD-EPI)AfAm 83 (>60 ml/min/1.73 sqM) Est GFR (CKD-EPI)NonAf 72 (>60 ml/min/1.73 sqM) Glucose 169 H (74-99) mg/dL Plasma Lactic Acid Benito (0.7-2.0) mmol/L Calcium 9.2 (8.4-10.2) mg/dL Magnesium 1.9 (1.6-2.3) mg/dL Total Bilirubin 2.4 H (0.2-1.3) mg/dL AST 30 (14-36) U/L ALT 44 H (4-34) U/L Alkaline Phosphatase 74 (38-126) U/L Total Protein 7.2 (6.3-8.2) g/dL Albumin 4.2 (3.5-5.0) g/dL Amylase 53 (30-110) U/L Lipase 149 (23-300) U/L Urine Color Light Yellow Urine Appearance Cloudy H (Clear) Urine pH 5.5 (5.0-8.0) Ur Specific [place] 1.014 (1.001-1.035) Urine Protein 1+ H (Negative) Urine Glucose (UA) Negative (Negative) Urine Ketones Negative (Negative) Urine Blood Negative (Negative) Urine Nitrite Negative (Negative) Urine Bilirubin Negative (Negative) Urine Urobilinogen <2.0 (<2.0) mg/dL Ur Leukocyte Esterase Moderate H (Negative) Urine RBC 4 (0-5) /hpf Urine WBC 20 H (0-5) /hpf Ur Squamous Epith Cells 11 H (0-4) /hpf Urine Bacteria Rare H (None) /hpf Urine Mucus Rare H (None) /hpf 12/18/24 Range/Units 14:53 WBC (3.8-10.6) k/uL RBC (3.80-5.40) m/uL Hgb (11.4-16.0) gm/dL Hct (34.0-46.0) % MCV (80.0-100.0) fL MCH (25.0-35.0) pg MCHC (31.0-37.0) g/dL RDW (11.5-15.5) % Plt Count (150-450) k/uL MPV Neutrophils % % Lymphocytes % % Monocytes % % Eosinophils % % Basophils % % Neutrophils # (1.3-7.7) k/uL Lymphocytes # (1.0-4.8) k/uL Monocytes # (0-1.0) k/uL Eosinophils # (0-0.7) k/uL Basophils # (0-0.2) k/uL Sodium (137-145) mmol/L Potassium (3.5-5.1) mmol/L Chloride (98-107) mmol/L Carbon Dioxide (22-30) mmol/L Anion Gap mmol/L BUN (7-17) mg/dL Creatinine (0.52-1.04) mg/dL Est GFR (CKD-EPI)AfAm (>60 ml/min/1.73 sqM) Est GFR (CKD-EPI)NonAf (>60 ml/min/1.73 sqM) Glucose (74-99) mg/dL Plasma Lactic Acid Benito 1.2 (0.7-2.0) mmol/L Calcium (8.4-10.2) mg/dL Magnesium (1.6-2.3) mg/dL Total Bilirubin (0.2-1.3) mg/dL AST (14-36) U/L ALT (4-34) U/L Alkaline Phosphatase (38-126) U/L Total Protein (6.3-8.2) g/dL Albumin (3.5-5.0) g/dL Amylase (30-110) U/L Lipase (23-300) U/L Urine Color Urine Appearance (Clear) Urine pH (5.0-8.0) Ur Specific [place] (1.001-1.035) Urine Protein (Negative) Urine Glucose (UA) (Negative) Urine Ketones (Negative) Urine Blood (Negative) Urine Nitrite (Negative) Urine Bilirubin (Negative) Urine Urobilinogen (<2.0) mg/dL Ur Leukocyte Esterase (Negative) Urine RBC (0-5) /hpf Urine WBC (0-5) /hpf Ur Squamous Epith Cells (0-4) /hpf Urine Bacteria (None) /hpf Urine Mucus (None) /hpf Disposition Clinical Impression: Vertigo, Diarrhea Disposition: HOME SELF-CARE Condition: Good Instructions (If sedation given, give patient instructions): Acute Diarrhea (ED) Additional Instructions: Please return to the Emergency Department if symptoms worsen or any other concerns. Is patient prescribed a controlled substance at d/c from ED?: No Referrals: Deborah Garsia MD [Primary Care Provider] - 1-2 days Time of Disposition: 15:45
[2024-05-02] MEDS: SODIUM CHLORIDE 0.9% 1,000 ML IV STA (14:55)
[2024-05-02] MEDS: ONDANSETRON 4 MG/2 ML VIAL IVP STA (14:56)
[2024-05-02 15:07] LABS: Basophils # (A) 0.1 k/uL (0-0.2); Basophils % (A) 1 %; Eosinophils # (A) 0.2 k/uL (0-0.7); Eosinophils % (A) 3 %; HCT 42.3 % (34.0-46.0); HGB 13.5 gm/dL (11.4-16.0); Lymphocytes # (A) 1.8 k/uL (1.0-4.8); Lymphocytes % (A) 24 %; MCH 29.5 pg (25.0-35.0); MCHC 31.9 g/dL (31.0-37.0); MCV 92.7 fL (80.0-100.0); Mean Platelet Volume 7.3; Monocytes # (A) 0.4 k/uL (0-1.0); Monocytes % (A) 5 %; Neutrophils # (A) 4.7 k/uL (1.3-7.7); Neutrophils % (A) 65 %; Platelet Count 224 k/uL (150-450); RBC 4.56 m/uL (3.80-5.40); WBC 7.2 k/uL (3.8-10.6)
[2024-05-02 15:13] LABS: Appearance,Urine Cloudy (Clear); Bacteria,Urine Rare /hpf; Bilirubin,Urine Negative (Negative); Blood,Urine Negative (Negative); Color,Urine Light Yellow; Glucose,Urine (UA) Negative (Negative); Ketones,Urine Negative (Negative); Leukocyte Esterase,Urine Moderate (Negative); Mucus,Urine Rare /hpf; Nitrite,Urine Negative (Negative); PH, Urine 5.5 (5.0-8.0); Protein,Urine 1+ (Negative); RBC,Urine 4 /hpf (0-5); Specific Gravity,Urine 1.014 (1.001-1.035); Squamous Epithelial Cell,Urine 11 /hpf (0-4); Urobilinogen,Urine <2.0 mg/dL (<2.0); WBC,Urine 20 /hpf (0-5)
[2024-05-02 15:19] LABS: ALT 44 U/L (4-34); AST 30 U/L (14-36); African American GFR (CKD) 83 (>60 ml/min/1.73 sqM); Albumin 4.2 g/dL (3.5-5.0); Alkaline Phosphatase 74 U/L (38-126); Amylase 53 U/L (30-110); Anion Gap 10 mmol/L; Blood Urea Nitrogen 11 mg/dL (7-17); Calcium 9.2 mg/dL (8.4-10.2); Carbon Dioxide 29 mmol/L (22-30); Chloride 101 mmol/L (98-107); Glucose 169 mg/dL (74-99); Lipase 149 U/L (23-300); Magnesium 1.9 mg/dL (1.6-2.3); Non-African American GFR(CKD) 72 (>60 ml/min/1.73 sqM); Potassium 3.8 mmol/L (3.5-5.1); Sodium 140 mmol/L (137-145); Total Bilirubin 2.4 mg/dL (0.2-1.3); Total Protein 7.2 g/dL (6.3-8.2)
[2024-05-02] MEDS: KETOROLAC 15 MG/ML 1 ML VIAL IVP STA (16:00)
[2024-05-02 16:06] VITALS: BP 131/80; PULSE 61; TEMP 98.4
== END 2024-05-02 16:12 | disposition home or self-care (01) ==
LOC: EC 13:54
DX: R19.7 Diarrhea, unspecified (principal); R42 Dizziness and giddiness; E03.9 Hypothyroidism, unspecified; E11.9 Type 2 diabetes mellitus without complications; I10 Essential (primary) hypertension; Z88.0 Allergy status to penicillin
CPT/HCPCS: 36415; 93005; 80053; 82150; 83605; 83690; 83735; 85025; 81001; 99284; 96374; 96375; 96361; J2405; J1885

== ENCOUNTER → 2024-06-12 | Outpatient (CLI) | payer BC ==
[2024-06-12 17:20] LABS: African American GFR (CKD) 73 (>60 ml/min/1.73 sqM); Blood Urea Nitrogen 12 mg/dL (7-17); Non-African American GFR(CKD) 63 (>60 ml/min/1.73 sqM)
--- NOTE | 2024-06-12 23:20 | CT ---
EXAMINATION TYPE: CT abdomen pelvis w con DATE OF EXAM: 06/12/2024 6:56 PM COMPARISON: None. CLINICAL INDICATION: Female, 48 years old with history of R17 UNSPECIFIED JAUNDICE, Elevated Bilirubi n. TECHNIQUE: Axial images were obtained from above the diaphragm to the pubic rami in the axial plane a t 5 mm thick sections. Reconstructed images are reviewed on the computer in the coronal plane. CONTRAST: 100 ml mL of Isovue 300. Study performed with Oral Contrast DLP: 2727.7 mGycm, Automated exposure control for dose reduction was used. FINDINGS: Limited CT sections are obtained the lung bases. The lung bases are clear. CT ABDOMEN: Liver: No biliary dilatation is evident. Common bile duct appears normal Spleen: Normal Pancreas: Normal Adrenal glands: The adrenal glands are normal. Gallbladder: Surgically absent Kidneys: No masses are evident. No hydronephrosis is present. No cysts are present. Delayed images were obtained through the kidneys, which remain unremarkable. Aorta: Minimal Vascular calcification is within the aorta. Inferior vena cava: Normal. CT PELVIS: Loops of bowel within the abdomen and pelvis are normal. There are loops of bowel which are incom pletely distended or lack oral contrast limiting their evaluation. Appendix: Normal as visualized. Urinary bladder: Normal. Genitourinary structures: Uterus and adnexa appear normal Osseous structures: No suspicious lytic or sclerotic lesions. IMPRESSION: 1. No suspicious abnormalities to account for jaundice X-Ray Stas Vinson, , 06/12/2024 11:18 PM
== END | disposition home or self-care (01) ==
LOC: RADCTMAIN 16:46
PROVIDERS: ATTEND Family Medicine
DX: R17 Unspecified jaundice (principal)
CPT/HCPCS: 82565; 84520; 74177; 36415; Q9967

== ENCOUNTER → 2024-07-02 | Outpatient (CLI) | payer BC ==
[2024-07-02 19:07] LABS: Bilirubin, Conjugated 0.57 mg/dL (0.20-0.40); Bilirubin,Unconjugated 1.33 mg/dL (0.20-1.00); Total Bilirubin 1.9 mg/dL (0.3-1.2)
== END | disposition home or self-care (01) ==
LOC: LABWHC1 14:32
PROVIDERS: ATTEND Nurse Practitioner Family
DX: R17 Unspecified jaundice (principal)
CPT/HCPCS: 36415; 82105; 82248